=== PATIENT | female | born 1955 | race Caucasian/White ===

== ENCOUNTER 2016-09-19 18:57 | Observation (INO) ==
--- NOTE | 2016-09-19 19:05 | Emergency Department Note ---
Disposition Clinical Impression: Acute exacerbation of chronic obstructive airways disease Disposition: Admitted As Inpatient Condition: Fair Forms: ED Satisfaction Letter SOB HPI - General Chief Complaint: ED Shortness of Breath/Dyspnea Stated Complaint: DESHAWN Time Seen by Provider: 09/19/16 19:02 Source: patient Mode of arrival: ambulatory Limitations: no limitations Nursing Notes Reviewed: Yes Vital Signs Reviewed: Yes - History of Present Illness She is a 61-year-old female with history of moderate to severe COPD presents with increasing shortness of breath gradually over the past 3 weeks. Normally she only uses oxygen at night or when she is short of breath but not at home. The last 3 weeks she has had a use oxygen daily she had increasing wheezing and shortness of breath. Also last 3-4 days she has had increased nonproductive cough with some left-sided pleuritic chest pain. She has a [id number] smoking history she quit 3 years ago still uses a vapor cigarette. She also complains some intermittent diarrhea and her doctor gave her Bentyl for some abdominal pain and cramping. Pt Subjective Complaint: shortness of breath Improves with: oxygen, rest, bronchodilators Worsens with: exertion Known history of: COPD Associated symptoms: Reports: wheezing Treatment prior to arrival: oxygen, bronchodilator - Related Data Home Medications Medication Instructions Recorded Confirmed Aclidinium [place] [Tudorza 400 mcg IH BID 04/18/15 06/27/16 Pressair] Aspirin [Adult Low Dose Aspirin EC] 81 mg PO DAILY 04/18/15 06/27/16 Budesonide/Formoterol 160/4.5 2 puff IH BIDR 04/18/15 06/27/16 [Symbicort 160/4.5] Buspirone HCl [Buspar] 7.5 mg PO BID 04/18/15 06/27/16 Calcium Carbonate/Vitamin D3 2 tab PO DAILY 04/18/15 06/27/16 [Caltrate 600 + D Soft Chew Tab] Carvedilol [Coreg] 3.125 mg PO BIDWM 04/18/15 06/27/16 Escitalopram [Lexapro] 20 mg PO DAILY 04/18/15 06/27/16 Fluticasone Propionate Nasal 2 spray NS DAILY 04/18/15 03/26/16 [Flonase] LORazepam [Ativan] 1 mg PO HS PRN 04/18/15 06/27/16 Multivitamin [Multi-Day Vitamins] 1 tab PO DAILY 04/18/15 06/27/16 Rizatriptan Benzoate [Maxalt] 10 mg PO AD PRN 04/18/15 06/27/16 Roflumilast [Daliresp] 500 mcg PO DAILY 04/18/15 06/27/16 Simvastatin [Zocor] 20 mg PO DAILY 04/18/15 06/27/16 Calcium Polycarbophil [Fibercon] 625 mg PO QID 08/02/15 06/27/16 Pantoprazole Sodium [Protonix] 40 mg PO DAILY 08/02/15 06/27/16 Albuterol Sulfate [Ventolin Hfa] 18 gm IH Q4H 03/26/16 06/27/16 EPINEPHrine [Epipen] 0.3 mg IM ONCE PRN 03/26/16 06/27/16 Guaifenesin [Mucinex] 600 mg PO BID 03/26/16 06/27/16 HydrOXYzine SYP [Atarax] 25 mg PO TID 03/26/16 06/27/16 Insulin ASPART [Novolog Flexpen] 2 unit SQ DAILY 03/26/16 06/27/16 Insulin Glargine,Hum.rec.anlog 29 unit SQ DAILY 03/26/16 06/27/16 [Lantus Solostar] Ipratropium/Albuterol Neb [Duoneb] 3 ml IH Q6HR 03/26/16 06/27/16 Omeprazole [PriLOSEC] 20 mg PO DAILY 03/26/16 06/27/16 Ondansetron HCl [Zofran] 4 mg PO TID PRN 03/26/16 06/27/16 Oxygen 2 - 3 each NS CONT 03/26/16 06/27/16 Polyethylene Glycol 3350 [MiraLAX] 17 gm PO DAILY PRN 03/26/16 06/27/16 Potassium Chloride [Klor-Con] 20 meq PO DAILY 03/26/16 06/27/16 Simethicone [Gas-X] 80 mg PO TID 03/26/16 06/27/16 Nitroglycerin [Nitrostat] 0.4 mg SL Q5M PRN 06/27/16 06/27/16 Ranolazine [Ranexa] 500 mg PO BID 06/27/16 06/27/16 Allergies Allergy/AdvReac Type Severity Reaction Status Date / Time atorvastatin [From Lipitor] Allergy Swelling Verified 06/27/16 10:04 of Lip/Tongue/Throat bupropion [From Wellbutrin] Allergy Swelling Verified 06/27/16 10:04 of Lip/Tongue/Throat glimepiride Allergy Swelling Verified 06/27/16 10:04 of Lip/Tongue/Throat isosorbide [From Imdur] Allergy Swelling Verified 06/27/16 10:04 of Lip/Tongue/Throat lurasidone [From Latuda] Allergy Swelling Verified 06/27/16 10:04 of Lip/Tongue/Throat metformin Allergy Swelling Verified 06/27/16 10:04 of Lip/Tongue/Throat metoclopramide [From Reglan] Allergy Swelling Verified 06/27/16 10:04 of Lip/Tongue/Throat Penicillins Allergy Anaphylaxis Verified 06/27/16 10:04 prednisone Allergy Swelling Verified 09/19/16 19:00 of Lip/Tongue/Throat aspirin AdvReac Nausea Verified 06/27/16 10:04 clopidogrel [From Plavix] AdvReac Swelling Verified 06/27/16 10:04 of Lip/Tongue/Throat codeine AdvReac Nausea Verified 06/27/16 10:04 fluticasone AdvReac Swelling Verified 06/27/16 10:04 [From Advair Diskus] of Lip/Tongue/Throat Pertussis Vaccine,Adsorbed AdvReac Swelling Verified 06/27/16 10:04 of Lip/Tongue/Throat risperidone AdvReac Swelling Verified 06/27/16 10:04 of Lip/Tongue/Throat salmeterol AdvReac Swelling Verified 06/27/16 10:04 [From Advair Diskus] of Lip/Tongue/Throat tiotropium AdvReac Swelling Verified 06/27/16 10:04 [From Spiriva with of HandiHaler] Lip/Tongue/Throat venom-honey bee AdvReac Swelling Verified 06/27/16 10:04 [bee venom (honey bee)] of Lip/Tongue/Throat All systems ED: reviewed and negative except as stated. Constitutional: Denies: fever, chills Gastrointestinal: Reports: diarrhea. Denies: nausea, vomiting Past Medical History - Past Medical History Source: patient, old records reviewed, nursing notes reviewed Medical history: Reports: cardiomyopathy, COPD, coronary artery disease, diabetes, GERD, migraine, myocardial infarction, osteoporosis, thyroid disease, other Surgical history: Reports: appendectomy, cholecystectomy, hysterectomy, knee replacement, orthopedic, other Psychiatric history: Reports: anxiety, depression, PTSD - Social History Smoking Status: Former smoker Smokeless Tobacco Status: No Alcohol use: Reports: none Drug use: Reports: none Physical Exam - General Limitations: no limitations General appearance: alert, in no apparent distress - Head Head exam: atraumatic, normocephalic, normal inspection - Eye Eye exam: Present: normal appearance, PERRL, EOMI - Expanded Eye Exam Pupils: Left: reactive - ENT ENT exam: normal exam, normal oropharynx, mucous membranes moist - Expanded ENT Exam External ear exam: Present: normal external inspection Mouth exam: Present: normal external inspection Teeth exam: Present: normal inspection Throat exam: Present: normal inspection - Neck Neck exam: Present: normal inspection, full ROM, trachea midline - Chest Chest inspection: Present: normal inspection, symmetric chest wall rise - Respiratory Respiratory exam: Present: wheezes, prolonged expiratory phase. Absent: respiratory distress, accessory muscle use - Cardiovascular Cardiovascular exam: Present: tachycardia - Abdominal Exam Abdominal exam: Present: soft, Non-Tender. Absent: tenderness, distention, guarding, rebound, rigidity - Extremities Exam Extremities exam: Present: normal inspection, full ROM. Absent: tenderness, pedal edema - Expanded Upper Extremity Exam Shoulder exam: Present: normal inspection, full ROM Arm exam: Present: normal inspection, full ROM Elbow exam: Present: normal inspection, full ROM Forearm/Wrist exam: Present: normal inspection, full ROM Hand exam: Present: normal inspection, full ROM Vascular exam: Normal: capillary refill, radial pulse - Expanded Lower Extremity Exam Hip/Pelvis exam: Present: normal inspection, full ROM Upper leg exam: Present: normal inspection, full ROM Knee exam: Present: normal inspection, full ROM Lower leg exam: Present: normal inspection, full ROM Ankle exam: Present: normal inspection, full ROM Foot/toe exam: Present: normal inspection, full ROM Neurovascular/Tendon exam: Absent: motor deficit, sensory deficit, tendon deficit - Back Exam Back exam: Present: normal inspection, full ROM. Absent: tenderness - Neurological Exam Neurological exam: Present: alert, oriented X3 - Expanded Neurological Exam Patient oriented to: Present: person, place, time Coma Scale Eye Opening: Spontaneous Coma Scale Motor Response: Obeys Commands Coma Scale Verbal Response: Oriented Coma Scale Total: 15 - Psychiatric Psychiatric exam: Present: normal affect, normal mood - Skin Skin exam: Present: warm, dry, intact, normal color Course Vital Signs Temperature 98.4 F 09/19/16 19:00 Pulse Rate 115 09/19/16 19:00 Respiratory Rate 25 09/19/16 19:00 Blood Pressure 123/94 09/19/16 19:00 O2 Sat by Pulse Oximetry 95 09/19/16 19:00 Temperature 98.4 F 09/19/16 19:00 Pulse Rate 113 09/19/16 19:27 Respiratory Rate 18 09/19/16 20:38 Blood Pressure 109/99 09/19/16 19:27 O2 Sat by Pulse Oximetry 97 09/19/16 20:38 Oxygen Delivery Oxygen Delivery Nasal Cannula Shortness of Breath/Dyspnea - Differential Diagnosis Likely: acute exacerbation of chronic obstructive airways disease, congestive heart failure, pneumonia, asthma with exacerbation, pulmonary embolism, pneumothorax, arrhythmia - Medical Records Medical records reviewed: Yes I reviewed the patient's medical records. - Lab Data Lab results reviewed: Yes I reviewed the patient's lab results. Result diagrams: 09/19/16 19:14 09/19/16 19:14 Lab Results 09/19/16 09/19/16 09/19/16 Range/Units 19:14 19:14 19:14 WBC 9.3 (4.3-11.1) K/mcL RBC 4.79 (3.82-4.97) M/mcL Hgb 12.8 (11.5-15.4) g/dL Hct 40.1 (35.3-44.9) % MCV 83.7 (83.0-100.0) fL MCH 26.7 L (28.0-33.3) pg MCHC 31.9 (31.6-35.5) g/dL RDW 13.8 (11.5-14.5) % Plt Count 418 H (140-400) K/mcL MPV 9.7 (9.4-12.4) fL Immature Gran % 0.4 (0-4) % Seg Neutrophils % 59.3 % Lymphocytes % 27.7 % Monocytes % 8.2 % Eosinophils % 4.0 % Basophils % 0.4 % Neutrophils # 5.5 (1.6-8.9) K/mcL Lymphocytes # 2.6 (0.6-4.6) K/mcL Monocytes # 0.8 (0.0-1.3) K/mcL Eosinophils # 0.4 (0.0-0.6) K/mcL Basophils # 0.0 (0.0-0.2) K/mcL Immature Plt Fraction 2.8 (1.1-6.1) % Sodium 140 (136-145) mEq/L Potassium 4.3 (3.5-4.5) mEq/L Chloride 100 (98-109) mEq/L Carbon Dioxide 29 (19-29) mEq/L BUN 6 L (7-20) mg/dL Creatinine 0.97 (0.57-1.11) mg/dL Est GFR ( Amer) > 60 (> 60) Est GFR (Non-Af Amer) 58 L (> 60) BUN/Creatinine Ratio 6 (6-26) Glucose 199 H (70-99) mg/dL Calculated Osmolality 293 (280-300) Calcium 9.9 (8.6-10.8) mg/dL Troponin I 0.01 (0-0.03) ng/mL B-Natriuretic Peptide (0-100) pg/mL 09/19/16 Range/Units 19:14 WBC (4.3-11.1) K/mcL RBC (3.82-4.97) M/mcL Hgb (11.5-15.4) g/dL Hct (35.3-44.9) % MCV (83.0-100.0) fL MCH (28.0-33.3) pg MCHC (31.6-35.5) g/dL RDW (11.5-14.5) % Plt Count (140-400) K/mcL MPV (9.4-12.4) fL Immature Gran % (0-4) % Seg Neutrophils % % Lymphocytes % % Monocytes % % Eosinophils % % Basophils % % Neutrophils # (1.6-8.9) K/mcL Lymphocytes # (0.6-4.6) K/mcL Monocytes # (0.0-1.3) K/mcL Eosinophils # (0.0-0.6) K/mcL Basophils # (0.0-0.2) K/mcL Immature Plt Fraction (1.1-6.1) % Sodium (136-145) mEq/L Potassium (3.5-4.5) mEq/L Chloride (98-109) mEq/L Carbon Dioxide (19-29) mEq/L BUN (7-20) mg/dL Creatinine (0.57-1.11) mg/dL Est GFR ( Amer) (> 60) Est GFR (Non-Af Amer) (> 60) BUN/Creatinine Ratio (6-26) Glucose (70-99) mg/dL Calculated Osmolality (280-300) Calcium (8.6-10.8) mg/dL Troponin I (0-0.03) ng/mL B-Natriuretic Peptide 30 (0-100) pg/mL - Radiology Data Radiology results reviewed: Yes I reviewed the patient's radiology results. - EKG Data EKG attestation: Yes I reviewed and interpreted this EKG. EKG shows normal: Reports: sinus rhythm Rate: Reports: tachycardia (109) Rhythm: Reports: NSR [place]/QRS: Reports: normal Interpretation: Reports: no acute changes
[2016-09-19 19:24] LABS: Basophils % 0.4 %; Eosinophils # 0.4 K/mcL (0.0-0.6); Hematocrit 40.1 % (35.3-44.9); Hemoglobin 12.8 g/dL (11.5-15.4); Immature Granulocytes % 0.4 % (0-4); Immature Platelets 2.8 % (1.1-6.1); Lymphocytes # 2.6 K/mcL (0.6-4.6); Lymphocytes % 27.7 %; Mean Corpuscular HGB Conc 31.9 g/dL (31.6-35.5); Mean Corpuscular Hemoglobin 26.7 pg (28.0-33.3); Mean Corpuscular Volume 83.7 fL (83.0-100.0); Mean Platelet Volume 9.7 fL (9.4-12.4); Monocytes # 0.8 K/mcL (0.0-1.3); Monocytes % 8.2 %; Neutrophils # 5.5 K/mcL (1.6-8.9); Platelet Count 418 K/mcL (140-400); Red Blood Count 4.79 M/mcL (3.82-4.97); Red Cell Distribution Width 13.8 % (11.5-14.5); Segmented Neutrophils % 59.3 %
[2016-09-19] MEDS ORDERED: Ipratropium/Albuterol Neb 3 ML IH ONE (19:35)
[2016-09-19] MEDS ORDERED: methylPREDNISolone 125 MG/2 ML VIAL IVP ONE (19:35)
[2016-09-19 19:38] LABS: BUN/Creatinine Ratio 6 (6-26); Blood Urea Nitrogen 6 mg/dL (7-20); Calcium 9.9 mg/dL (8.6-10.8); Carbon Dioxide 29 mEq/L (19-29); Chloride 100 mEq/L (98-109); Glucose 199 mg/dL (70-99); Osmolality,Calculated 293 (280-300); Potassium 4.3 mEq/L (3.5-4.5); Sodium 140 mEq/L (136-145); eGFR For African Americans > 60 (> 60); eGFR For Non-African Americans 58 (> 60)
[2016-09-19] MEDS ORDERED: Levofloxacin 750 MG/150 ML 750 MG/150 ML BAG IVPB ONE (20:46)
--- NOTE | 2016-09-19 23:07 | Internal Med History&Physical ---
<Cayla Durbin - Last Filed: 09/20/16 01:26> Date of Encounter: 09/20/16 Time of Encounter: 00:07 Assessment and Plan (1) Acute exacerbation of chronic obstructive airways disease Current visit: Yes Status: Acute duonebs IV solumedrol supplemental O2 to keep SaO2 >/=96% continue home inhalers (2) Diabetes Current visit: No Status: Chronic SQ insulin with low dose sliding scale diabetic cardiac diet glucerna BID - requested by patient Patient has stated that she will be having food brought in if she is not placed on a "regular diet" stating that she does not eat a diabetic diet at home, she eats cookies and ice cream and gottlieb and eggs. She states that she counts carbs athome for her diet and is upset that during her last admission she was not allowed to have sugar for her coffee or gottlieb at breakfast. 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 transplanted heart: [place] heart Associated angina: with unspecified angina Qualified Code(s): I25.119 - Atherosclerotic heart disease of [place] coronary artery with unspecified angina pectoris Internal Medicine - H&P: HPI Chief complaint: shortness of breath Admitted From: Emergency Dept Plans for Post Hospital Care: Home History of present illness: Ms. Gomez is a 61 year old female past medical history of diabets, CAD, COPD, who comes in complaining with shortness of breath 3 weeks and nonproductive cough 3 days. At her baseline she does not use oxygen at home, but uses it at rest and when she is ill. She states that she has been using it for the past 3 weeks with increased difficulty in breathing and shortness of breath and also increased oxygen demand. In the past 3 days she has had a dry hacking cough that has caused chest wall and rib pain. She also notes increase in loose stools with flatus and belching. She is adamant that she wants a regular diet and she does not eat a diabetic diet at home - that she counts carbs. She states that last time she was admitted she was unable to use sugar in her coffee or have gottlieb with breakfast. She states that if she is not placed on a regular diet she will have food brought in to her room. Past Med Surg Social Fam HX - Past Medical History Medical history: cardiomyopathy ([place]), COPD, coronary artery disease, diabetes, GERD, migraine, myocardial infarction, osteoporosis, renal disease, thyroid disease (hyperthyroidism), other (overactive bladder) Psychiatric history: anxiety, bipolar, depression, panic disorder, PTSD - Past Surgical History Surgical History: appendectomy, cataract, cholecystectomy, knee replacement ( right), orthopedic, other (right carpal tunnel), ANTON/BSO - Social History Smoking Status: Former smoker Smokeless Tobacco Status: No Alcohol use: none Drug use: none - Family History Father Adopted: No Family Member Ethnicity: Non- Living Status: Hx Family Cardiac Disorders: Yes (CAD,HTN) Hx Family Respiratory Disorders: No Hx Family Cancer: No Hx Family GI Disorders: Yes Hx Family Endocrine Disorder: Yes (DM) Hx Family Neuromuscular Disorders: No Hx Family Neurologic Disorders: No Hx Family HEENT Disorders: No Hx Family Autoimmune Disorders: No Internal Medicine - H&P: Meds Aclidinium [place] [Tudorza Pressair] 400 mcg IH BID 04/18/15 [History] Aspirin [Adult Low Dose Aspirin EC] 81 mg PO DAILY 04/18/15 [History] Budesonide/Formoterol 160/4.5 [Symbicort 160/4.5] 2 puff IH BIDR 04/18/15 [ History] Buspirone HCl [Buspar] 7.5 mg PO BID 04/18/15 [History] Carvedilol [Coreg] 3.125 mg PO BIDWM 04/18/15 [History] Roflumilast [Daliresp] 500 mcg PO DAILY 04/18/15 [History] Simvastatin [Zocor] 20 mg PO DAILY 04/18/15 [History] Calcium Polycarbophil [Fibercon] 625 mg PO QID PRN 08/02/15 [History] Pantoprazole Sodium [Protonix] 40 mg PO DAILY 08/02/15 [History] Albuterol Sulfate [Ventolin Hfa] 18 gm IH Q4H PRN 03/26/16 [History] Insulin ASPART [Novolog Flexpen] 2 - 10 unit SQ TID 03/26/16 [History] Insulin Glargine,Hum.rec.anlog [Lantus Solostar] 29 unit SQ HS 03/26/16 [History ] Ipratropium/Albuterol Neb [Duoneb] 3 ml IH Q4-6H PRN 03/26/16 [History] Ondansetron HCl [Zofran] 4 mg PO TID PRN 03/26/16 [History] Oxygen 2 - 3 each NS CONT 03/26/16 [History] Potassium Chloride [Klor-Con] 20 meq PO DAILY 03/26/16 [History] Nitroglycerin [Nitrostat] 0.4 mg SL Q5M PRN 06/27/16 [History] Ranolazine [Ranexa] 500 mg PO BID 06/27/16 [History] Benzonatate [Tessalon] 100 mg PO TID PRN 09/19/16 [History] Dicyclomine [Bentyl] 20 mg PO QID 09/19/16 [History] Glucerna 09/19/16 [History] Rizatriptan Benzoate [Maxalt] 10 mg PO ONCE PRN 09/19/16 [History] Simethicone [Gas-X] 80 mg PO QID PRN 09/19/16 [History] Allergies atorvastatin [From Lipitor] Allergy (Verified 06/27/16 10:04) Swelling of Lip/Tongue/Throat bupropion [From Wellbutrin] Allergy (Verified 06/27/16 10:04) Swelling of Lip/Tongue/Throat glimepiride Allergy (Verified 06/27/16 10:04) Swelling of Lip/Tongue/Throat isosorbide [From Imdur] Allergy (Verified 06/27/16 10:04) Swelling of Lip/Tongue/Throat lurasidone [From Latuda] Allergy (Verified 06/27/16 10:04) Swelling of Lip/Tongue/Throat metformin Allergy (Verified 06/27/16 10:04) Swelling of Lip/Tongue/Throat metoclopramide [From Reglan] Allergy (Verified 06/27/16 10:04) Swelling of Lip/Tongue/Throat Penicillins Allergy (Verified 06/27/16 10:04) Anaphylaxis prednisone Allergy (Verified 09/19/16 19:00) Swelling of Lip/Tongue/Throat aspirin Adverse Reaction (Verified 09/19/16 23:23) Nausea GI upset with 325 mg strength; able to tolerate 81 mg strength clopidogrel [From Plavix] Adverse Reaction (Verified 06/27/16 10:04) Swelling of Lip/Tongue/Throat codeine Adverse Reaction (Verified 06/27/16 10:04) Nausea fluticasone [From Advair Diskus] Adverse Reaction (Verified 06/27/16 10:04) Swelling of Lip/Tongue/Throat Pertussis Vaccine,Adsorbed Adverse Reaction (Verified 06/27/16 10:04) Swelling of Lip/Tongue/Throat risperidone Adverse Reaction (Verified 06/27/16 10:04) Swelling of Lip/Tongue/Throat salmeterol [From Advair Diskus] Adverse Reaction (Verified 06/27/16 10:04) Swelling of Lip/Tongue/Throat tiotropium [From Spiriva with HandiHaler] Adverse Reaction (Verified 06/27/16 10 :04) Swelling of Lip/Tongue/Throat venom-honey bee [bee venom (honey bee)] Adverse Reaction (Verified 06/27/16 10: 04) Swelling of Lip/Tongue/Throat All Systems PM: A 10-system review of systems was performed and is negative for pertinent findings except as documented above in the HPI. - Constitutional Constitutional: no chills, no fever(s), no night sweats - EENT Eyes: no change in vision, no discharge, no pain, no photophobia Ears: no ear discharge, no ear pain, no tinnitus Nose, mouth and throat: no dysphagia, no nasal discharge, no neck pain, no sore throat - Cardiovascular Cardiovascular ROS IM: chest pain, dyspnea, dyspnea on exertion, no diaphoresis , no lightheadedness, no palpitations, no syncope - Respiratory Respiratory: cough, dyspnea, dyspnea on exertion, wheezing, pain with cough, no excessive phlegm production - Gastrointestinal Gastrointestinal: belching, change in stool character, excessive flatus, loose stools, no abdominal pain, no diarrhea, no hematemesis, no hematochezia, no melena, no nausea, no vomiting - Genitourinary Genitourinary: no change in urinary stream, no difficulty urinating, no dysuria , no flank pain, no hematuria, no urinary frequency, no urinary urgency - Musculoskeletal Musculoskeletal ROS IM: muscle cramps (calf), no numbness, no tingling - Integumentary Integumentary IM: no rash, no unusual bruising - Neurological Neurological ROS: no confusion, no convulsions, no focal weakness, no numbness, no tingling, no tremor(s) - Hematologic/Lymphatic Hematologic/Lymphatic: no easy bruising - Constitutional Vitals: Temp Pulse Resp BP Pulse Ox 98.0 F 109 32 143/78 95 09/19/16 22:14 09/19/16 22:14 09/19/16 22:14 09/19/16 22:14 09/19/16 22:14 General appearance: Present: A&O X 3, no acute distress - Head Head exam: Present: atraumatic, normocephalic - Eye Eye exam: Present: PERRL, conjuntiva pink, sclera anicteric Pupils: Present: PERRL - Neck Neck exam general surgery: Present: supple, trachea midline. Absent: lymphadenopathy - Respiratory Respiratory exam: Present: chest wall tenderness, decreased breath sounds, prolonged expiratory phase, wheezes. Absent: accessory muscle use, rales, rhonchi - Cardiovascular Cardiovascular exam: Present: RRR, +S1, +S2. Absent: diastolic murmur, gallop, rubs, systolic murmur - GI/Abdominal GI/Abdominal exam: Present: normal bowel sounds, soft, no peritoneal signs. Absent: distended, tenderness - Extremities Exam Extremities exam: Present: warm, radial pulses palpable and symetrical. Absent : calf tenderness, cyanotic, pedal edema - Neurological Exam Neurological exam: Present: CN II-XII intact, oriented X3, no focal deficits. Absent: pronater drift, facial droop, speech deficit - Skin Skin exam: Present: dry, intact Internal Med - H&P Results - Labs CBC & Chem 7: 09/19/16 19:14 09/19/16 19:14 <Nik Jhaveri - Last Filed: 09/20/16 02:47> Date of Encounter: 09/20/16 All Systems PM: A 10-system review of systems was performed and is negative for pertinent findings except as documented above in the HPI. - Constitutional Vitals: Temp Pulse Resp BP Pulse Ox 98.0 F 109 32 143/78 95 09/19/16 22:14 09/19/16 22:14 09/19/16 22:14 09/19/16 22:14 09/19/16 22:14 General appearance: Present: A&O X 3, no acute distress - Head Head exam: Present: atraumatic, normal inspection - ENT ENT exam: Present: mucous membranes dry, normal oropharynx - Neck Neck exam general surgery: Present: supple - Respiratory Respiratory exam: Present: chest wall tenderness, decreased breath sounds, prolonged expiratory phase, wheezes. Absent: rales, respiratory distress, rhonchi - Cardiovascular Cardiovascular exam: Present: RRR, +S1, +S2 - GI/Abdominal GI/Abdominal exam: Present: soft. Absent: tenderness - Extremities Exam Extremities exam: Present: full ROM, warm - Back Exam Back exam: Present: normal inspection. Absent: CVA tenderness (L), CVA tenderness (R) - Neurological Exam Neurological exam: Present: alert, oriented X3, no focal deficits Internal Med - H&P Results - Labs CBC & Chem 7: 09/19/16 19:14 09/19/16 19:14 - EKG Data -: EKG Interpreted by Myself EKG shows normal: sinus rhythm Rate: tachycardia - EKG Data Prior EKG available for review: no EKG comments: 09/20/16 02:41 sinus tachycardia with no acute changes - Diagnostic Studies Chest x-ray Status: image reviewed by me (negative -- no infiltrates) - Attending Attestation I discussed the pt DIOMEDE, PMH, ROS, lab data, and exam findings with Dr. Durbin. I then saw and examined patient independently as well. Pt is resting in bed comfortably and feels better than initial presentation. She denies any fevers, shakes, chills, but she has had some body aches, fatigue, and occasional headache. We will check for influenza and treat if necessary. I agree with COPD treatments. I'm not convinced she needs antibiotics. She did receive a dose of antibiotics in ER. Will treat as detailed by Dr. Durbin and monitor closely. Other than my comments and noted exam findings , I agree with Dr. Durbin.
[2016-09-19] MEDS ORDERED: Acetaminophen 325 MG TABLET PO PRN (23:55)
[2016-09-19] MEDS ORDERED: Naloxone 0.4 MG/ML INJ IVP PRN (23:55)
[2016-09-19] MEDS ORDERED: Dextrose Gel 15 GM PO PRN ×2 (23:58)
[2016-09-19] MEDS ORDERED: D5% in Water 1,000 ML IV PRN (23:58)
[2016-09-19] MEDS ORDERED: *HR* Dextrose 50 % in Water (Syg) 50 ML SYRINGE IVP PRN (23:58)
[2016-09-20] MEDS ORDERED: MAXALT 10 MG PO PRN (00:01)
[2016-09-20] MEDS ORDERED: Nitroglycerin 0.4 MG TAB.SUBL SL PRN (00:01)
[2016-09-20] MEDS ORDERED: Ipratropium/Albuterol Neb 3 ML IH PRN (00:18)
[2016-09-20] MEDS: Insulin LISPRO 300 UNITS/3 ML VIAL SQ SCH ×9 (00:28→23:36)
[2016-09-20] MEDS: Ipratropium/Albuterol Neb 3 ML IH SCH ×6 (00:34→20:34)
[2016-09-20 03:02] LABS: 2009 H1N1 PCR NOT DETECTED (Not Detect); Influenza A PCR Negative (Negative); Influenza B PCR Negative (Negative)
[2016-09-20] MEDS: Insulin DETEMIR 100 UNIT/ML X5UNITS SQ SCH ×2 (03:43→21:25)
[2016-09-20] MEDS: methylPREDNISolone 125 MG/2 ML VIAL IVP SCH ×2 (06:05→16:57)
[2016-09-20] MEDS: *HR* Heparin 5,000 UNIT/ML VIAL SQ SCH ×2 (06:05→20:43)
[2016-09-20] MEDS: Ranolazine 500 MG TAB.ER.12H PO SCH ×2 (09:49→20:43)
[2016-09-20] MEDS: Aspirin Enteric Coated 81 MG Tablet PO SCH (09:49)
[2016-09-20] MEDS: DALIRESP 500 MCG PO SCH (09:54)
[2016-09-20] MEDS: Tudorza Pressair 400 MCG IH SCH ×2 (09:55→20:43)
--- NOTE | 2016-09-20 10:09 | Internal Med Progress Note ---
Date of Encounter: 09/20/16 Time of Encounter: 09:00 - Assessment and plan (1) Acute exacerbation of chronic obstructive airways disease Current Visit: Yes Status: Acute Assessment and plan: We will continue pulmonary toilet. On examination, patient with poor aeration and diffuse expiratory wheezing noted throughout. She has mild increased work of breathing and has to stop and positive for extra breaths while speaking. Of note, patient demanded to take her home medicine and after policy was explained to her, she is okay with taking [facility]'s medications. Chest x-ray unremarkable. Flu swab negative. ITS Impressions Chest X-Ray 09/19/16 19:05 IMPRESSION: No acute disease D/ / Tobias Rodgers MD / Tobias Rodgres MD Interpreting Provider: Tobias Rodgers MD (2) Chest pain Current Visit: Yes Status: Acute Assessment and plan: Costochondral in nature. Patient with point tenderness to left axillary chest that is worsened with movement and coughing. We will continue pain control and add incentive spirometry. (3) CKD (chronic kidney disease) stage 3, GFR 30-59 ml/min Current Visit: Yes Status: Chronic Assessment and plan: Stable and consistent with her baseline. We will continue to trend. (4) CAD (coronary artery disease) Current Visit: Yes Status: Chronic (5) Chronic respiratory failure Current Visit: No Status: Chronic Assessment and plan: Patient is stating she was on 3-1/2 L per nasal cannula as needed at home but over the past several weeks, patient has been using it continuously. She is currently on 3.5 L (6) Diabetes Current Visit: No Status: Chronic Assessment and plan: Relatively well-controlled home with an A1c of 7.2%. Of note, patient stating that she eats a regular diet at home but performs carbohydrate counting. We will allow for a regular diet as her diabetes appears controlled. Qualifiers: Diabetes mellitus type: type 2 Diabetes mellitus complication status: with hyperglycemia Diabetes mellitus retirement insulin use: with retirement use Qualified Code(s): E11.65 - Type 2 diabetes mellitus with hyperglycemia; Z79.4 - residential (current) use of insulin (7) Smoking Current Visit: No Status: Chronic Assessment and plan: Patient has stopped smoking cigarettes however she uses vapor ecigs daily. She was counseled to stop ecigs as well as their safety has not been proven, but she declined counseling. - Subjective Interval history: Patient seen and examined. On examination, patient sitting upright in bed conversing with a friend. She states she is feeling better than when she came in but still is more short of breath than usual. Patient complaining of severe pain to her left side with coughing. She states she no longer smokes but does "vape" daily. She is requesting to take her own medications from home. She is requesting a regular diet. - Constitutional Vitals: Temp Pulse Resp BP Pulse Ox 97.8 F 100 20 129/74 95 09/20/16 04:57 09/20/16 04:57 09/20/16 04:57 09/20/16 04:57 09/20/16 04:57 General appearance: Present: mild distress, A&O X 3, pleasant, answers questions appropriately - Head Head exam: Present: atraumatic, normocephalic - Eye Eye exam: Present: PERRL, conjuntiva pink, sclera anicteric Pupils: Present: PERRL - Neck Neck exam general surgery: Present: supple, trachea midline. Absent: lymphadenopathy - Respiratory Respiratory exam: Present: accessory muscle use, decreased breath sounds, prolonged expiratory phase, respiratory distress (mild), wheezes. Absent: rales , rhonchi - Cardiovascular Cardiovascular exam: Present: RRR, +S1, +S2. Absent: diastolic murmur, gallop, rubs, systolic murmur - GI/Abdominal GI/Abdominal exam: Present: normal bowel sounds, soft, no peritoneal signs. Absent: distended, tenderness - Extremities Exam Extremities exam: Present: warm, radial pulses palpable and symetrical. Absent : calf tenderness, cyanotic, pedal edema - Neurological Exam Neurological exam: Present: alert, CN II-XII intact, oriented X3, no focal deficits, strengths equal and symetr throughout. Absent: pronater drift, facial droop, speech deficit - Skin Skin exam: Present: diaphoretic, intact, pallor, warm Internal Medicine: Result - Labs CBC & Chem 7: 09/19/16 19:14 09/19/16 19:14 Labs: Cardiac Enzymes 09/20/16 Range/Units 03:16 Troponin I 0.00 (0-0.03) ng/mL Consult Discharge Plan - Plan Referrals: Lisa Brown, NELDA [Primary Care Provider] -
[2016-09-20] MEDS: Budesonide/Formoterol 160/4.5 MDI IH SCH ×2 (10:27→20:35)
[2016-09-20] MEDS ORDERED: *HR* HYDROcodone/Acet 5/325 mg TABLET PO PRN (10:27)
[2016-09-20] MEDS ORDERED: Benzonatate 100 MG CAPSULE PO PRN (10:28)
[2016-09-20] MEDS: Simethicone 80 MG TAB.CHEW PO PRN ×2 (14:47→20:43)
[2016-09-20] MEDS: *HR* OxyCODONE Immed Rel 5 MG TABLET PO PRN (14:47)
--- NOTE | 2016-09-20 17:14 | Electrocardiograph Report ---
[place] [address] Test Date: 2016-09-19 Pat Name: Margie Gomez Department: 104 Room: 3B38 Gender: F Mixer Attendant: : 1955 Requested By: Archie Randall Order Number: [id number] Reading MD: Susan Gallo Measurements Intervals [place] Rate: 109 P: 58 MN: 125 QRS: 43 QRSD: 72 T: 54 QT: 300 QTc: 364 Interpretive Statements SINUS TACHYCARDIA ABNORMAL RHYTHM ECG Electronically Signed On 09-20-2016 17:12:23 EST by Susan Gallo
[2016-09-20] MEDS ORDERED: Insulin DETEMIR 100 UNIT/ML X5UNITS SQ SCH ×2 (21:15→22:00)
[2016-09-20] MEDS ORDERED: Insulin DETEMIR 100 UNIT/ML X5UNITS SQ ONE (21:28)
[2016-09-21] MEDS: Ipratropium/Albuterol Neb 3 ML IH SCH ×5 (00:16→15:53)
[2016-09-21] MEDS: Ondansetron ODT 4 MG TAB.RAPDIS SL PRN ×2 (03:45→10:19)
[2016-09-21 05:02] LABS: Calcium 9.6 mg/dL (8.6-10.8); Potassium 4.5 mEq/L (3.5-4.5)
[2016-09-21] MEDS: Insulin LISPRO 300 UNITS/3 ML VIAL SQ SCH ×2 (05:45→11:52)
[2016-09-21] MEDS: methylPREDNISolone 125 MG/2 ML VIAL IVP SCH (05:46)
[2016-09-21] MEDS: Budesonide/Formoterol 160/4.5 MDI IH SCH ×2 (07:51→10:22)
[2016-09-21] MEDS: Simethicone 80 MG TAB.CHEW PO PRN ×3 (09:29→17:10)
[2016-09-21] MEDS: Ranolazine 500 MG TAB.ER.12H PO SCH (09:29)
[2016-09-21] MEDS: Aspirin Enteric Coated 81 MG Tablet PO SCH (09:32)
[2016-09-21] MEDS: Tudorza Pressair 400 MCG IH SCH (09:33)
[2016-09-21] MEDS: DALIRESP 500 MCG PO SCH (09:34)
[2016-09-21] MEDS: *HR* Heparin 5,000 UNIT/ML VIAL SQ SCH ×2 (10:19→17:13)
[2016-09-21] MEDS: *HR* OxyCODONE Immed Rel 5 MG TABLET PO PRN ×2 (11:51→17:10)
[2016-09-21] MEDS ORDERED: Patient Taking Own Medication 1 EACH PO SCH (13:00)
[2016-09-21 16:35] VITALS: BP 110/67
[2016-09-21] MEDS ORDERED: *HR* LORazepam 0.5 MG TABLET PO PRN (16:42)
--- NOTE | 2016-09-21 16:49 | Internal Med Progress Note ---
Date of Encounter: 09/21/16 Time of Encounter: 16:45 - Assessment and plan (1) Acute exacerbation of chronic obstructive airways disease Current Visit: Yes Status: Acute Assessment and plan: We will continue pulmonary toilet. On examination, patient has no wheezing today. however has decreased breath sounds. Chest x-ray unremarkable. Flu swab negative. She is allergic to prednisone, we will taper the IV methylprednisone to 60 every 12 today. ITS Impressions Chest X-Ray 09/19/16 19:05 IMPRESSION: No acute disease D/ / Tobias Rodgers MD / Tobias Rodgers MD Interpreting Provider: Tobias Rodgers MD (2) CAD (coronary artery disease) Current Visit: Yes Status: Chronic Assessment and plan: denies chest pain, continue home meds Qualifiers: Coronary Disease-Associated Artery/Lesion type: [place] artery [place] vs. transplanted heart: [place] heart Associated angina: with unspecified angina Qualified Code(s): I25.119 - Atherosclerotic heart disease of [place] coronary artery with unspecified angina pectoris (3) CKD (chronic kidney disease) stage 3, GFR 30-59 ml/min Current Visit: Yes Status: Chronic Assessment and plan: Stable and consistent with her baseline. We will continue to trend. (4) Diabetes Current Visit: No Status: Chronic Assessment and plan: Relatively well-controlled home with an A1c of 7.2%. Of note, patient stating that she eats a regular diet at home but performs carbohydrate counting. We will allow for a regular diet as her diabetes appears controlled. 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 however, noted that she was speaking in full sentences and does not seem to be in much respiratory distress. no fever or leucocytosis. her meds has been adjusted the way she is taking at home, will add prn ativan for anxiety. - Constitutional Vitals: Temp Pulse Resp BP Pulse Ox 97.5 F L 113 16 110/67 96 09/21/16 16:31 09/21/16 16:31 09/21/16 16:31 09/21/16 16:31 09/21/16 16:31 General appearance: Present: mild distress, A&O X 3, pleasant, answers questions appropriately Exam: - Head Head exam: Present: atraumatic, normocephalic - Eye Eye exam: Present: PERRL, conjuntiva pink, sclera anicteric Pupils: Present: PERRL - Neck Neck exam general surgery: Present: supple, trachea midline. Absent: lymphadenopathy - Respiratory Respiratory exam: Present: decreased breath sounds, prolonged expiratory phase, no wheezing. Absent: rales, rhonchi - Cardiovascular Cardiovascular exam: Present: RRR, +S1, +S2. Absent: diastolic murmur, gallop, rubs, systolic murmur - GI/Abdominal GI/Abdominal exam: Present: normal bowel sounds, soft, no peritoneal signs. Absent: distended, tenderness - Extremities Exam Extremities exam: Present: warm, radial pulses palpable and symetrical. Absent : calf tenderness, cyanotic, pedal edema - Neurological Exam Neurological exam: Present: alert, CN II-XII intact, oriented X3, no focal deficits, strengths equal and symetr throughout. Absent: pronater drift, facial droop, speech deficit - Skin Skin exam: Present: diaphoretic, intact, pallor, warm Internal Medicine: Result - Labs CBC & Chem 7: 09/19/16 19:14 09/21/16 03:54 Labs: BMP 09/21/16 03:54 Sodium 131 L D Potassium 4.5 Chloride 97 L Carbon Dioxide 20 BUN 14 Creatinine 1.19 H Glucose 425 H Calcium 9.6 Consult Discharge Plan - Plan Referrals: Lisa Brown CNP [Primary Care Provider] - 09/27/16 1:30 pm
[2016-09-21] MEDS ORDERED: methylPREDNISolone 125 MG/2 ML VIAL IVP SCH (18:00)
[2016-09-22] MEDS ORDERED: predniSONE 20 MG TABLET PO SCH (09:00)
--- NOTE | 2016-09-22 18:28 | Discharge Summary ---
Date of Encounter: 09/21/16 Time of Encounter: 18:24 - Discharge Diagnosis (1) Acute exacerbation of chronic obstructive airways disease Priority: Primary Status: Acute (2) CAD (coronary artery disease) Priority: Secondary Status: Chronic Qualifiers: Coronary Disease-Associated Artery/Lesion type: [place] artery [place] vs. transplanted heart: [place] heart Associated angina: with unspecified angina Qualified Code(s): I25.119 - Atherosclerotic heart disease of [place] coronary artery with unspecified angina pectoris (3) CKD (chronic kidney disease) stage 3, GFR 30-59 ml/min Priority: Secondary Status: Chronic (4) Diabetes Priority: Secondary Status: Chronic Qualifiers: Diabetes mellitus type: type 2 Diabetes mellitus complication status: with hyperglycemia Diabetes mellitus care home insulin use: with care home use Qualified Code(s): E11.65 - Type 2 diabetes mellitus with hyperglycemia; Z79.4 - intermediate accountant (current) use of insulin - Discharge Medications Home Medications: Aclidinium [place] [Tudorza Pressair] 400 mcg IH BID 04/18/15 [History] Aspirin [Adult Low Dose Aspirin EC] 81 mg PO DAILY 04/18/15 [History] Budesonide/Formoterol 160/4.5 [Symbicort 160/4.5] 2 puff IH BIDR 04/18/15 [ History] Buspirone HCl [Buspar] 15 mg PO HS 04/18/15 [History] Carvedilol [Coreg] 3.125 mg PO BIDWM 04/18/15 [History] Roflumilast [Daliresp] 500 mcg PO DAILY 04/18/15 [History] Simvastatin [Zocor] 20 mg PO DAILY 04/18/15 [History] Calcium Polycarbophil [Fibercon] 625 mg PO QID PRN 08/02/15 [History] Pantoprazole Sodium [Protonix] 40 mg PO DAILY 08/02/15 [History] Albuterol Sulfate [Ventolin Hfa] 18 gm IH Q4H PRN 03/26/16 [History] Insulin ASPART [Novolog Flexpen] 2 - 10 unit SQ TID 03/26/16 [History] Insulin Glargine,Hum.rec.anlog [Lantus Solostar] 29 unit SQ HS 03/26/16 [History ] Ipratropium/Albuterol Neb [Duoneb] 3 ml IH Q4-6H PRN 03/26/16 [History] Ondansetron HCl [Zofran] 4 mg PO TID PRN 03/26/16 [History] Oxygen 2 - 3 each NS CONT 03/26/16 [History] Potassium Chloride [Klor-Con] 20 meq PO DAILY 03/26/16 [History] Nitroglycerin [Nitrostat] 0.4 mg SL Q5M PRN 06/27/16 [History] Ranolazine [Ranexa] 500 mg PO BID 06/27/16 [History] Benzonatate [Tessalon] 100 mg PO TID PRN 09/19/16 [History] Dicyclomine [Bentyl] 20 mg PO QID 09/19/16 [History] Glucerna 09/19/16 [History] Rizatriptan Benzoate [Maxalt] 10 mg PO ONCE PRN 09/19/16 [History] Simethicone [Gas-X] 80 mg PO QID 09/19/16 [History] Zolpidem [Ambien] 5 mg PO HS 09/20/16 [History] Allergies/Adverse Reactions: Allergies atorvastatin [From Lipitor] Allergy (Verified 06/27/16 10:04) Swelling of Lip/Tongue/Throat bupropion [From Wellbutrin] Allergy (Verified 06/27/16 10:04) Swelling of Lip/Tongue/Throat glimepiride Allergy (Verified 06/27/16 10:04) Swelling of Lip/Tongue/Throat isosorbide [From Imdur] Allergy (Verified 06/27/16 10:04) Swelling of Lip/Tongue/Throat lurasidone [From Latuda] Allergy (Verified 06/27/16 10:04) Swelling of Lip/Tongue/Throat metformin Allergy (Verified 06/27/16 10:04) Swelling of Lip/Tongue/Throat metoclopramide [From Reglan] Allergy (Verified 06/27/16 10:04) Swelling of Lip/Tongue/Throat Penicillins Allergy (Verified 06/27/16 10:04) Anaphylaxis prednisone Allergy (Verified 09/19/16 19:00) Swelling of Lip/Tongue/Throat acetaminophen [From [place]] Adverse Reaction (Verified 09/20/16 11:17) Swelling of Lip/Tongue/Throat aspirin Adverse Reaction (Verified 09/19/16 23:23) Nausea GI upset with 325 mg strength; able to tolerate 81 mg strength clopidogrel [From Plavix] Adverse Reaction (Verified 06/27/16 10:04) Swelling of Lip/Tongue/Throat codeine Adverse Reaction (Verified 06/27/16 10:04) Nausea fluticasone [From Advair Diskus] Adverse Reaction (Verified 06/27/16 10:04) Swelling of Lip/Tongue/Throat hydrocodone [From [place]] Adverse Reaction (Verified 09/20/16 11:17) Swelling of Lip/Tongue/Throat Pertussis Vaccine,Adsorbed Adverse Reaction (Verified 06/27/16 10:04) Swelling of Lip/Tongue/Throat risperidone Adverse Reaction (Verified 06/27/16 10:04) Swelling of Lip/Tongue/Throat salmeterol [From Advair Diskus] Adverse Reaction (Verified 06/27/16 10:04) Swelling of Lip/Tongue/Throat tiotropium [From Spiriva with HandiHaler] Adverse Reaction (Verified 06/27/16 10 :04) Swelling of Lip/Tongue/Throat venom-honey bee [bee venom (honey bee)] Adverse Reaction (Verified 06/27/16 10: 04) Swelling of Lip/Tongue/Throat Date of admission: 09/19/16 21:29 Primary care physician: Lisa Brown, Consults: 09/19/16 22:46 Consult to Church Supervisor [CONS] Routine Reason for SW Consult: resume services Discharging clinician: Lang Manning Anticipated date of discharge: 09/22/16 - Patient Status Disposition: Home, Self-Care Condition: Fair - Discharge Instructions Follow Up With: Lisa Brown, RIBBON WINDER [Primary Care Provider] - 09/27/16 1:30 pm Interval History: jair was admitted for acute exacerbation of COPD. she was started on IV steroids and breathing tx. 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 she is still on 60 IV q12 of methylpred and she is allergic to prednisone as this time, it was expalined that it might beunsafe to discharge her off steroids , that was when she signed out AMA. Hospital course: Ms. Gomez is a 61 year old female - Time Spent with Patient Total time spent providing and/or coordinating discharge services: - Constitutional Vitals: Temp Pulse Resp BP Pulse Ox 97.5 F L 113 16 110/67 96 09/21/16 16:31 09/21/16 16:31 09/21/16 16:31 09/21/16 16:31 09/21/16 16:31 General appearance: Present: A&O X 3, pleasant, answers questions appropriately Exam: exam was not done at the time of dc as jair signed out AMA
== END 2016-09-21 18:40 | disposition home or self-care (01) ==
LOC: EMEROO 18:57 → 3BNU 18:57
PROVIDERS: ADMIT Pediatrics; ATTEND Nurse Practitioner Family

== ENCOUNTER 2017-04-27 21:21 | Inpatient (IN) ==
[2017-04-27] MEDS ORDERED: Ipratropium/Albuterol Neb 3 ML IH ONE ×2 (21:32→22:08)
[2017-04-27] MEDS ORDERED: methylPREDNISolone 125 MG/2 ML VIAL IVP ONE (22:04)
[2017-04-27] MEDS ORDERED: Aspirin 325 MG TABLET PO ONE (22:09)
[2017-04-27] MEDS ORDERED: Levofloxacin 750 MG/150 ML 750 MG/150 ML BAG IVPB ONE (22:09)
[2017-04-27 22:11] LABS: Basophils # 0.1 K/mcL (0.0-0.2); Basophils % 0.6 %; Eosinophils # 0.3 K/mcL (0.0-0.6); Hematocrit 41.7 % (35.3-44.9); Hemoglobin 13.3 g/dL (11.5-15.4); Immature Granulocytes % 1.3 % (0-4); Lymphocytes # 3.2 K/mcL (0.6-4.6); Lymphocytes % 24.8 %; Mean Corpuscular HGB Conc 31.9 g/dL (31.6-35.5); Mean Corpuscular Hemoglobin 28.2 pg (28.0-33.3); Mean Corpuscular Volume 88.3 fL (83.0-100.0); Mean Platelet Volume 9.9 fL (9.4-12.4); Monocytes # 0.9 K/mcL (0.0-1.3); Monocytes % 6.9 %; Neutrophils # 8.3 K/mcL (1.6-8.9); Platelet Count 345 K/mcL (140-400); Red Blood Count 4.72 M/mcL (3.82-4.97); Red Cell Distribution Width 13.7 % (11.5-14.5); Segmented Neutrophils % 64.4 %
[2017-04-27 22:12] LABS: VBG PH 7.42 pH Units (7.32-7.42)
[2017-04-27 22:15] LABS: Prothrombin Time 10.6 Seconds (9.4-12.1)
[2017-04-27 22:18] LABS: Activated Partial Thrombo Time 24.3 Seconds (26.0-36.0)
--- NOTE | 2017-04-27 22:19 | Emergency Department Note ---
Disposition Clinical Impression: Community acquired pneumonia, Acute exacerbation of chronic obstructive airways disease Disposition: Still a Patient Condition: Good Referrals: Lisa Brown CNP [Primary Care Provider] - Forms: ED Satisfaction Letter SOB HPI - General Chief Complaint: ED Shortness of Breath/Dyspnea Stated Complaint: SOB Time Seen by Provider: 04/27/17 21:24 Source: patient Limitations: no limitations Nursing Notes Reviewed: Yes Vital Signs Reviewed: Yes - History of Present Illness Patient presents to the ED with a chief complaint of shortness of breath. Patient has a long-standing history of COPD and is home oxygen dependent. States that 4 weeks ago she had a flareup and her PCP called in a Z-Rodrigo and a prednisone taper, which helped her for 2 weeks. Reports that last week she had another flareup and the Z-Rodrigo and prednisone taper has not helped this time. She just finished it 2 days ago and feels like she is continuing to get worse. No fever, chills, chest pain, abdominal pain, nausea, vomiting, diarrhea, rash, pain or swelling in her legs. No history of DVT, PE, malignancy, or coronary artery disease. She does state she is currently being worked up for sleep apnea but does not wear CPAP at home. She states this feels just like her normal COPD exacerbations, except she is not getting better with her normal treatment. - Related Data Home Medications Medication Instructions Recorded Confirmed Aclidinium [place] [Tudorza 400 mcg IH BID 04/18/15 09/19/16 Pressair] Aspirin [Adult Low Dose Aspirin EC] 81 mg PO DAILY 04/18/15 09/19/16 Budesonide/Formoterol 160/4.5 2 puff IH BIDR 04/18/15 09/19/16 [Symbicort 160/4.5] Buspirone HCl [Buspar] 15 mg PO HS 04/18/15 09/20/16 Carvedilol [Coreg] 3.125 mg PO BIDWM 04/18/15 09/19/16 Roflumilast [Daliresp] 500 mcg PO DAILY 04/18/15 09/19/16 Simvastatin [Zocor] 20 mg PO DAILY 04/18/15 09/19/16 Calcium Polycarbophil [Fibercon] 625 mg PO QID PRN 08/02/15 09/19/16 Pantoprazole Sodium [Protonix] 40 mg PO DAILY 08/02/15 09/19/16 Albuterol Sulfate [Ventolin Hfa] 18 gm IH Q4H PRN 03/26/16 09/19/16 Insulin ASPART [Novolog Flexpen] 2 - 10 unit SQ TID 03/26/16 09/19/16 Insulin Glargine,Hum.rec.anlog 29 unit SQ HS 03/26/16 09/19/16 [Lantus Solostar] Ipratropium/Albuterol Neb [Duoneb] 3 ml IH Q4-6H PRN 03/26/16 09/19/16 Ondansetron HCl [Zofran] 4 mg PO TID PRN 03/26/16 09/19/16 Oxygen 2 - 3 each NS CONT 03/26/16 09/19/16 Potassium Chloride [Klor-Con] 20 meq PO DAILY 03/26/16 09/19/16 Nitroglycerin [Nitrostat] 0.4 mg SL Q5M PRN 06/27/16 09/19/16 Ranolazine [Ranexa] 500 mg PO BID 06/27/16 09/19/16 Benzonatate [Tessalon] 100 mg PO TID PRN 09/19/16 09/19/16 Dicyclomine [Bentyl] 20 mg PO QID 09/19/16 09/19/16 Glucerna 09/19/16 Rizatriptan Benzoate [Maxalt] 10 mg PO ONCE PRN 09/19/16 09/19/16 Simethicone [Gas-X] 80 mg PO QID 09/19/16 09/19/16 Zolpidem [Ambien] 5 mg PO HS 09/20/16 09/20/16 Allergies Allergy/AdvReac Type Severity Reaction Status Date / Time atorvastatin [From Lipitor] Allergy Swelling Verified 06/27/16 10:04 of Lip/Tongue/Throat bupropion [From Wellbutrin] Allergy Swelling Verified 06/27/16 10:04 of Lip/Tongue/Throat glimepiride Allergy Swelling Verified 06/27/16 10:04 of Lip/Tongue/Throat isosorbide [From Imdur] Allergy Swelling Verified 06/27/16 10:04 of Lip/Tongue/Throat lurasidone [From Latuda] Allergy Swelling Verified 06/27/16 10:04 of Lip/Tongue/Throat metformin Allergy Swelling Verified 06/27/16 10:04 of Lip/Tongue/Throat metoclopramide [From Reglan] Allergy Swelling Verified 06/27/16 10:04 of Lip/Tongue/Throat Penicillins Allergy Anaphylaxis Verified 06/27/16 10:04 prednisone Allergy Swelling Verified 09/19/16 19:00 of Lip/Tongue/Throat acetaminophen [From [place]] AdvReac Swelling Verified 09/20/16 11:17 of Lip/Tongue/Throat aspirin AdvReac Nausea Verified 09/19/16 23:23 clopidogrel [From Plavix] AdvReac Swelling Verified 06/27/16 10:04 of Lip/Tongue/Throat codeine AdvReac Nausea Verified 06/27/16 10:04 fluticasone AdvReac Swelling Verified 06/27/16 10:04 [From Advair Diskus] of Lip/Tongue/Throat hydrocodone [From [place]] AdvReac Swelling Verified 09/20/16 11:17 of Lip/Tongue/Throat Pertussis Vaccine,Adsorbed AdvReac Swelling Verified 06/27/16 10:04 of Lip/Tongue/Throat risperidone AdvReac Swelling Verified 06/27/16 10:04 of Lip/Tongue/Throat salmeterol AdvReac Swelling Verified 06/27/16 10:04 [From Advair Diskus] of Lip/Tongue/Throat tiotropium AdvReac Swelling Verified 06/27/16 10:04 [From Spiriva with of HandiHaler] Lip/Tongue/Throat venom-honey bee AdvReac Swelling Verified 06/27/16 10:04 [bee venom (honey bee)] of Lip/Tongue/Throat All systems ED: reviewed and negative except as stated. Constitutional: Denies: fever Cardiovascular: Denies: chest pain Respiratory: Reports: cough, dyspnea, wheezes, sputum production Gastrointestinal: Denies: vomiting Past Medical History - Past Medical History Attestation: Yes The following information was validated with the patient. Source: patient Medical history: Reports: cardiomyopathy, COPD, coronary artery disease, diabetes, GERD, migraine, myocardial infarction, osteoporosis, renal disease, thyroid disease, other Surgical history: Reports: appendectomy, cataract, cholecystectomy, knee replacement (right), orthopedic, other (right carpal tunnel), ANTON/BSO Psychiatric history: Reports: anxiety, bipolar, depression, panic disorder, PTSD - Social History Smoking Status: Former smoker Smokeless Tobacco Status: No Alcohol use: Reports: rarely Drug use: Reports: none Physical Exam - General Limitations: no limitations General appearance: alert, in distress (Moderate respiratory distress) - Head Head exam: atraumatic, normocephalic, normal inspection - Eye Eye exam: Present: normal appearance, PERRL, EOMI - ENT ENT exam: normal exam, normal oropharynx, mucous membranes moist - Chest Chest inspection: Present: normal inspection, symmetric chest wall rise - Respiratory Respiratory exam: Present: respiratory distress (Moderate, respiratory rate in the 30s), wheezes (But is not moving much air at all), accessory muscle use. Absent: normal lung sounds bilaterally - Cardiovascular Cardiovascular exam: Present: tachycardia - Abdominal Exam Abdominal exam: Present: soft, Non-Tender. Absent: tenderness, distention, guarding, rebound, rigidity - Extremities Exam Extremities exam: Present: normal inspection, full ROM. Absent: tenderness, pedal edema Course Course Narrative: 61-year-old female presenting with a COPD exacerbation. Patient's working quite hard to breathe. She did get 1 DuoNeb from the initial triage assessment. Do think she will need to more and Solu-Medrol. Patient will potentially need to be placed on BiPAP. Labs are coming back and appears. She could have pneumonia, which would explain why she is not improving within normal treatment. We will sign her out to the nighttime team pending reevaluation after her 3 duo nebs at finished to determine if she will need to be placed on BiPAP. Her mentation is normal and she seems to not be tiring out , but I am concerned if she continues to breathe is hard and fast that she may decompensate. Patient will definitely need to be admitted to the hospital Vital Signs Temperature 98 F 04/27/17 21:23 Pulse Rate 110 04/27/17 21:23 Respiratory Rate 28 04/27/17 21:23 Blood Pressure 122/80 04/27/17 21:23 O2 Sat by Pulse Oximetry 96 04/27/17 21:23 Temperature 98 F 04/27/17 21:23 Pulse Rate 104 04/27/17 22:02 Respiratory Rate 36 04/27/17 22:02 Blood Pressure 108/55 04/27/17 22:02 O2 Sat by Pulse Oximetry 94 04/27/17 22:02 Oxygen Delivery Oxygen Delivery Nasal Cannula Shortness of Breath/Dyspnea - Medical Records Medical records reviewed: Yes I reviewed the patient's medical records. - Lab Data Lab results reviewed: Yes I reviewed the patient's lab results. Result diagrams: 04/27/17 22:04 04/27/17 22:04 Lab Results 04/27/17 04/27/17 04/27/17 Range/Units 22:04 22:04 22:04 WBC 12.9 H (4.3-11.1) K/mcL RBC 4.72 (3.82-4.97) M/mcL Hgb 13.3 (11.5-15.4) g/dL Hct 41.7 (35.3-44.9) % MCV 88.3 (83.0-100.0) fL MCH 28.2 (28.0-33.3) pg MCHC 31.9 (31.6-35.5) g/dL RDW 13.7 (11.5-14.5) % Plt Count 345 (140-400) K/mcL MPV 9.9 (9.4-12.4) fL Immature Gran % 1.3 (0-4) % Seg Neutrophils % 64.4 % Lymphocytes % 24.8 % Monocytes % 6.9 % Eosinophils % 2.0 % Basophils % 0.6 % Neutrophils # 8.3 (1.6-8.9) K/mcL Lymphocytes # 3.2 (0.6-4.6) K/mcL Monocytes # 0.9 (0.0-1.3) K/mcL Eosinophils # 0.3 (0.0-0.6) K/mcL Basophils # 0.1 (0.0-0.2) K/mcL PT 10.6 (9.4-12.1) Seconds INR 1.0 APTT 24.3 L (26.0-36.0) Seconds VBG pH (7.32-7.42) pH Units VBG pCO2 (41-51) mmHg VBG pO2 (25-40) mmHg VBG HCO3 (21-27) mEq/L Sodium 141 (136-145) mEq/L Potassium 4.3 (3.5-4.5) mEq/L Chloride 104 (98-109) mEq/L Carbon Dioxide 27 (19-29) mEq/L BUN 8 (7-20) mg/dL Creatinine 1.13 H (0.57-1.11) mg/dL Est GFR ( Amer) 59 L (> 60) Est GFR (Non-Af Amer) 49 L (> 60) BUN/Creatinine Ratio 7 (6-26) Glucose 184 H (70-99) mg/dL Calculated Osmolality 295 (280-300) Lactic Acid (0.5-2.2) mmol/L Calcium 9.2 (8.6-10.8) mg/dL Troponin I (0-0.03) ng/mL B-Natriuretic Peptide (0-100) pg/mL 04/27/17 04/27/17 04/27/17 Range/Units 22:04 22:04 22:04 WBC (4.3-11.1) K/mcL RBC (3.82-4.97) M/mcL Hgb (11.5-15.4) g/dL Hct (35.3-44.9) % MCV (83.0-100.0) fL MCH (28.0-33.3) pg MCHC (31.6-35.5) g/dL RDW (11.5-14.5) % Plt Count (140-400) K/mcL MPV (9.4-12.4) fL Immature Gran % (0-4) % Seg Neutrophils % % Lymphocytes % % Monocytes % % Eosinophils % % Basophils % % Neutrophils # (1.6-8.9) K/mcL Lymphocytes # (0.6-4.6) K/mcL Monocytes # (0.0-1.3) K/mcL Eosinophils # (0.0-0.6) K/mcL Basophils # (0.0-0.2) K/mcL PT (9.4-12.1) Seconds INR APTT (26.0-36.0) Seconds VBG pH (7.32-7.42) pH Units VBG pCO2 (41-51) mmHg VBG pO2 (25-40) mmHg VBG HCO3 (21-27) mEq/L Sodium (136-145) mEq/L Potassium (3.5-4.5) mEq/L Chloride (98-109) mEq/L Carbon Dioxide (19-29) mEq/L BUN (7-20) mg/dL Creatinine (0.57-1.11) mg/dL Est GFR ( Amer) (> 60) Est GFR (Non-Af Amer) (> 60) BUN/Creatinine Ratio (6-26) Glucose (70-99) mg/dL Calculated Osmolality (280-300) Lactic Acid 1.5 (0.5-2.2) mmol/L Calcium (8.6-10.8) mg/dL Troponin I 0.00 (0-0.03) ng/mL B-Natriuretic Peptide 28 (0-100) pg/mL 04/27/17 Range/Units 22:04 WBC (4.3-11.1) K/mcL RBC (3.82-4.97) M/mcL Hgb (11.5-15.4) g/dL Hct (35.3-44.9) % MCV (83.0-100.0) fL MCH (28.0-33.3) pg MCHC (31.6-35.5) g/dL RDW (11.5-14.5) % Plt Count (140-400) K/mcL MPV (9.4-12.4) fL Immature Gran % (0-4) % Seg Neutrophils % % Lymphocytes % % Monocytes % % Eosinophils % % Basophils % % Neutrophils # (1.6-8.9) K/mcL Lymphocytes # (0.6-4.6) K/mcL Monocytes # (0.0-1.3) K/mcL Eosinophils # (0.0-0.6) K/mcL Basophils # (0.0-0.2) K/mcL PT (9.4-12.1) Seconds INR APTT (26.0-36.0) Seconds VBG pH 7.42 (7.32-7.42) pH Units VBG pCO2 51 (41-51) mmHg VBG pO2 57 H (25-40) mmHg VBG HCO3 33 H (21-27) mEq/L Sodium (136-145) mEq/L Potassium (3.5-4.5) mEq/L Chloride (98-109) mEq/L Carbon Dioxide (19-29) mEq/L BUN (7-20) mg/dL Creatinine (0.57-1.11) mg/dL Est GFR ( Amer) (> 60) Est GFR (Non-Af Amer) (> 60) BUN/Creatinine Ratio (6-26) Glucose (70-99) mg/dL Calculated Osmolality (280-300) Lactic Acid (0.5-2.2) mmol/L Calcium (8.6-10.8) mg/dL Troponin I (0-0.03) ng/mL B-Natriuretic Peptide (0-100) pg/mL - Radiology Data Radiology results reviewed: Yes I reviewed the patient's radiology results. Chest X-Ray 04/27/17 21:32 IMPRESSION: Right basilar atelectasis or, less likely, pneumonia. D/ / José Miguel Costa MD / José Miguel Costa MD Interpreting Provider: José Miguel Costa MD Attestation Statement - Attestation Attestation: I examined this patient and my medical decision-making was reviewed with the Resident Physician, Dr. Lorenzo. I agree with the documented findings, disposition and treatment plan as described except to the extent set forth below. Patient is a 61-year-old white female with a history of COPD, last exacerbation she required hospitalization was in August of this year. Patient states she has been having worsening shortness of breath the past few days and difficulty breathing tonight she has been on 2 rounds of antibiotics and steroids over the past 5 weeks last time was 2 weeks ago. Patient denies any fevers or chills, is having productive cough with yellowish sputum. Patient arrived hypoxic on room air improved with sublingual oxygen. Patient denies any chest pain pressure or heaviness no diaphoresis, no abdominal pain or back pain, no lower extremity pain or cramping. No prior history of risk factors for PE or DVT. Does have a history of CAD. Patient arrives tachycardic and with mild hypoxia on room air. Patient with increased work of breathing and audible wheezing. I agree with patient's physical exam findings as documented. Patient had an IV saline well- established was placed on cloth colorer and continuous pulse ox steroids and DuoNeb were ordered on arrival. Patient had an EKG was interpreted by myself without benefit of for cardiology TURBT showing a sinus tachycardia [address] or T-wave changes are seen. This was compared to prior EKG from 2016 and there are no acute changes noted At this time patient's labs are back and are all within normal limits including a negative troponin. Chest x-ray showed a questionable right lower lobe infiltrate versus atelectasis we went ahead and cover the patient on IV antibiotics for community-acquired pneumonia considering the recent antibiotic failure on Zithromax we chose Levaquin. Patient's remained hemodynamically stable and lactate is 1.5. This time patient has not had significant improvement after the first round of breathing treatments we are getting go ahead with a second round of breathing treatments if patient does not improve she may need to have BiPAP trial. Plan is to admit the patient for acute exacerbation of COPD we have signed patient out to the regrinder operator seen Dr. Berry to reassess patient following breathing treatments and determine if she will need initiated on BiPAP prior to admission as this will change her level of care. Patient remained hemodynamically stable at this time.
[2017-04-27 22:23] LABS: Calcium 9.2 mg/dL (8.6-10.8); Potassium 4.3 mEq/L (3.5-4.5)
--- NOTE | 2017-04-27 22:46 | Emergency Department Note ---
Disposition Clinical Impression: Acute exacerbation of chronic obstructive airways disease Community acquired pneumonia Qualifiers: Laterality: right Lung location: lower lobe of lung Qualified Code(s): J18.1 - Lobar pneumonia, unspecified organism Disposition: Admitted As Inpatient Condition: Undetermined SOB HPI - General Chief Complaint: ED Shortness of Breath/Dyspnea Stated Complaint: SOB Time Seen by Provider: 04/27/17 21:24 Source: patient Mode of arrival: EMS Limitations: no limitations Nursing Notes Reviewed: Yes Vital Signs Reviewed: Yes - History of Present Illness Patient signed out by day team. patient experienced COPD exacerbation roughly 4 weeks ago where she was given zpak and steroid taper. This helped her symptoms. The patient states that similar episode 2 weeks ago with similar complaints and given meds which did not help. The patient states that when her meds finished two days ago she began experiencing worsening shortness of breath. The patient states that this is unusual for her. The patient came to the ED and was tachypnic upon arrival with low O2 saturation on 2L which quickly jonnathan after breathing treatments. The patient is still tachypneic and short of breath after receiving the breathing treatments. The patient received IV solu-Medrol. The patient is still experiencing wheezing and poor air movement. We will be placing the patient on BiPAP at this time. The patient was noted to have right lower lobe possible pneumonia and was started on Levaquin. We will admit the patient at this time. Pt Subjective Complaint: shortness of breath Onset (ago): day(s) (2) Severity: moderate Consistency/Duration: constant, gradually worsening Improves with: oxygen, bronchodilators Worsens with: exertion, coughing Known history of: COPD Associated symptoms: Reports: cough, wheezing, sputum production Treatment prior to arrival: oxygen Cough present: Yes Cough Description: Involuntary, Productive Cough Frequency: Persistent Sputum production: Yes Sputum Amount: Scant Sputum Color: White - Related Data Home oxygen amount: 2 liters Home Medications Medication Instructions Recorded Confirmed Aclidinium [place] [Tudorza 400 mcg IH BID 04/18/15 09/19/16 Pressair] Aspirin [Adult Low Dose Aspirin EC] 81 mg PO DAILY 04/18/15 09/19/16 Budesonide/Formoterol 160/4.5 2 puff IH BIDR 04/18/15 09/19/16 [Symbicort 160/4.5] Buspirone HCl [Buspar] 15 mg PO HS 04/18/15 09/20/16 Carvedilol [Coreg] 3.125 mg PO BIDWM 04/18/15 09/19/16 Roflumilast [Daliresp] 500 mcg PO DAILY 04/18/15 09/19/16 Simvastatin [Zocor] 20 mg PO DAILY 04/18/15 09/19/16 Calcium Polycarbophil [Fibercon] 625 mg PO QID PRN 08/02/15 09/19/16 Pantoprazole Sodium [Protonix] 40 mg PO DAILY 08/02/15 09/19/16 Albuterol Sulfate [Ventolin Hfa] 18 gm IH Q4H PRN 03/26/16 09/19/16 Insulin ASPART [Novolog Flexpen] 2 - 10 unit SQ TID 03/26/16 09/19/16 Insulin Glargine,Hum.rec.anlog 29 unit SQ HS 03/26/16 09/19/16 [Lantus Solostar] Ipratropium/Albuterol Neb [Duoneb] 3 ml IH Q4-6H PRN 03/26/16 09/19/16 Ondansetron HCl [Zofran] 4 mg PO TID PRN 03/26/16 09/19/16 Oxygen 2 - 3 each NS CONT 03/26/16 09/19/16 Potassium Chloride [Klor-Con] 20 meq PO DAILY 03/26/16 09/19/16 Nitroglycerin [Nitrostat] 0.4 mg SL Q5M PRN 06/27/16 09/19/16 Ranolazine [Ranexa] 500 mg PO BID 06/27/16 09/19/16 Benzonatate [Tessalon] 100 mg PO TID PRN 09/19/16 09/19/16 Dicyclomine [Bentyl] 20 mg PO QID 09/19/16 09/19/16 Glucerna 09/19/16 Rizatriptan Benzoate [Maxalt] 10 mg PO ONCE PRN 09/19/16 09/19/16 Simethicone [Gas-X] 80 mg PO QID 09/19/16 09/19/16 Zolpidem [Ambien] 5 mg PO HS 09/20/16 09/20/16 Allergies Allergy/AdvReac Type Severity Reaction Status Date / Time atorvastatin [From Lipitor] Allergy Swelling Verified 06/27/16 10:04 of Lip/Tongue/Throat bupropion [From Wellbutrin] Allergy Swelling Verified 06/27/16 10:04 of Lip/Tongue/Throat glimepiride Allergy Swelling Verified 06/27/16 10:04 of Lip/Tongue/Throat isosorbide [From Imdur] Allergy Swelling Verified 06/27/16 10:04 of Lip/Tongue/Throat lurasidone [From Latuda] Allergy Swelling Verified 06/27/16 10:04 of Lip/Tongue/Throat metformin Allergy Swelling Verified 06/27/16 10:04 of Lip/Tongue/Throat metoclopramide [From Reglan] Allergy Swelling Verified 06/27/16 10:04 of Lip/Tongue/Throat Penicillins Allergy Anaphylaxis Verified 06/27/16 10:04 prednisone Allergy Swelling Verified 09/19/16 19:00 of Lip/Tongue/Throat acetaminophen [From [place]] AdvReac Swelling Verified 09/20/16 11:17 of Lip/Tongue/Throat aspirin AdvReac Nausea Verified 09/19/16 23:23 clopidogrel [From Plavix] AdvReac Swelling Verified 06/27/16 10:04 of Lip/Tongue/Throat codeine AdvReac Nausea Verified 06/27/16 10:04 fluticasone AdvReac Swelling Verified 06/27/16 10:04 [From Advair Diskus] of Lip/Tongue/Throat hydrocodone [From [place]] AdvReac Swelling Verified 09/20/16 11:17 of Lip/Tongue/Throat Pertussis Vaccine,Adsorbed AdvReac Swelling Verified 06/27/16 10:04 of Lip/Tongue/Throat risperidone AdvReac Swelling Verified 06/27/16 10:04 of Lip/Tongue/Throat salmeterol AdvReac Swelling Verified 06/27/16 10:04 [From Advair Diskus] of Lip/Tongue/Throat tiotropium AdvReac Swelling Verified 06/27/16 10:04 [From Spiriva with of HandiHaler] Lip/Tongue/Throat venom-honey bee AdvReac Swelling Verified 06/27/16 10:04 [bee venom (honey bee)] of Lip/Tongue/Throat All systems ED: reviewed and negative except as stated. Constitutional: Denies: fever Cardiovascular: Denies: chest pain Respiratory: Reports: cough, dyspnea, wheezes, sputum production Gastrointestinal: Denies: vomiting Past Medical History - Past Medical History Attestation: Yes The following information was validated with the patient. Source: patient, old records reviewed Medical history: Reports: cardiomyopathy, COPD, coronary artery disease, diabetes, GERD, migraine, myocardial infarction, osteoporosis, renal disease, thyroid disease, other Surgical history: Reports: appendectomy, cataract, cholecystectomy, knee replacement (right), orthopedic, other (right carpal tunnel), ANTON/BSO Psychiatric history: Reports: anxiety, bipolar, depression, panic disorder, PTSD - Social History Smoking Status: Former smoker Smokeless Tobacco Status: No Alcohol use: Reports: rarely Drug use: Reports: none Physical Exam - General Limitations: no limitations General appearance: alert, in distress (Moderate respiratory distress) - Head Head exam: atraumatic, normocephalic, normal inspection - Neck Neck exam: Present: normal inspection, full ROM, trachea midline - Chest Chest inspection: Present: normal inspection, symmetric chest wall rise - Respiratory Respiratory exam: Present: wheezes, accessory muscle use - Expanded Respiratory Exam Location: rhonchi: Right, Lower - Cardiovascular Cardiovascular exam: Present: normal rhythm, tachycardia, normal heart sounds - Abdominal Exam Abdominal exam: Present: soft, Non-Tender. Absent: tenderness, distention, guarding, rebound, rigidity - Extremities Exam Extremities exam: Present: normal inspection, full ROM. Absent: tenderness, pedal edema - Neurological Exam Neurological exam: Present: alert, oriented X3 - Skin Skin exam: Present: warm, dry, intact, normal color Course Vital Signs Temperature 98 F 04/27/17 21:23 Pulse Rate 110 04/27/17 21:23 Respiratory Rate 28 04/27/17 21:23 Blood Pressure 122/80 04/27/17 21:23 O2 Sat by Pulse Oximetry 96 04/27/17 21:23 Temperature 98 F 04/27/17 21:23 Pulse Rate 100 04/27/17 23:52 Respiratory Rate 22 04/28/17 00:17 Blood Pressure 130/77 04/28/17 00:17 O2 Sat by Pulse Oximetry 97 04/27/17 23:52 Oxygen Delivery Oxygen Delivery Nasal Cannula Shortness of Breath/Dyspnea - MDM Narrative Medical decision making narrative: Patient's workup here in the emergency department demonstrates patient with respiratory distress likely accommodation of COPD exacerbation combined with pneumonia. The patient does have a right lower lobe infiltrate versus atelectasis. Patient was administered Levaquin. The patient was placed on BiPAP as well as administered breathing treatments. She is resting comfortably at this time it does not appear in any respiratory distress. We will admit the patient to the hospitalist at this time accepted by Dr. Acevedo - Lab Data Lab results reviewed: Yes I reviewed the patient's lab results. Result diagrams: 04/27/17 22:04 04/27/17 22:04 Lab Results 04/27/17 04/27/17 04/27/17 Range/Units 22:04 22:04 22:04 WBC 12.9 H (4.3-11.1) K/mcL RBC 4.72 (3.82-4.97) M/mcL Hgb 13.3 (11.5-15.4) g/dL Hct 41.7 (35.3-44.9) % MCV 88.3 (83.0-100.0) fL MCH 28.2 (28.0-33.3) pg MCHC 31.9 (31.6-35.5) g/dL RDW 13.7 (11.5-14.5) % Plt Count 345 (140-400) K/mcL MPV 9.9 (9.4-12.4) fL Immature Gran % 1.3 (0-4) % Seg Neutrophils % 64.4 % Lymphocytes % 24.8 % Monocytes % 6.9 % Eosinophils % 2.0 % Basophils % 0.6 % Neutrophils # 8.3 (1.6-8.9) K/mcL Lymphocytes # 3.2 (0.6-4.6) K/mcL Monocytes # 0.9 (0.0-1.3) K/mcL Eosinophils # 0.3 (0.0-0.6) K/mcL Basophils # 0.1 (0.0-0.2) K/mcL PT 10.6 (9.4-12.1) Seconds INR 1.0 APTT 24.3 L (26.0-36.0) Seconds VBG pH (7.32-7.42) pH Units VBG pCO2 (41-51) mmHg VBG pO2 (25-40) mmHg VBG HCO3 (21-27) mEq/L Sodium 141 (136-145) mEq/L Potassium 4.3 (3.5-4.5) mEq/L Chloride 104 (98-109) mEq/L Carbon Dioxide 27 (19-29) mEq/L BUN 8 (7-20) mg/dL Creatinine 1.13 H (0.57-1.11) mg/dL Est GFR ( Amer) 59 L (> 60) Est GFR (Non-Af Amer) 49 L (> 60) BUN/Creatinine Ratio 7 (6-26) Glucose 184 H (70-99) mg/dL Calculated Osmolality 295 (280-300) Lactic Acid (0.5-2.2) mmol/L Calcium 9.2 (8.6-10.8) mg/dL Troponin I (0-0.03) ng/mL B-Natriuretic Peptide (0-100) pg/mL 04/27/17 04/27/17 04/27/17 Range/Units 22:04 22:04 22:04 WBC (4.3-11.1) K/mcL RBC (3.82-4.97) M/mcL Hgb (11.5-15.4) g/dL Hct (35.3-44.9) % MCV (83.0-100.0) fL MCH (28.0-33.3) pg MCHC (31.6-35.5) g/dL RDW (11.5-14.5) % Plt Count (140-400) K/mcL MPV (9.4-12.4) fL Immature Gran % (0-4) % Seg Neutrophils % % Lymphocytes % % Monocytes % % Eosinophils % % Basophils % % Neutrophils # (1.6-8.9) K/mcL Lymphocytes # (0.6-4.6) K/mcL Monocytes # (0.0-1.3) K/mcL Eosinophils # (0.0-0.6) K/mcL Basophils # (0.0-0.2) K/mcL PT (9.4-12.1) Seconds INR APTT (26.0-36.0) Seconds VBG pH (7.32-7.42) pH Units VBG pCO2 (41-51) mmHg VBG pO2 (25-40) mmHg VBG HCO3 (21-27) mEq/L Sodium (136-145) mEq/L Potassium (3.5-4.5) mEq/L Chloride (98-109) mEq/L Carbon Dioxide (19-29) mEq/L BUN (7-20) mg/dL Creatinine (0.57-1.11) mg/dL Est GFR ( Amer) (> 60) Est GFR (Non-Af Amer) (> 60) BUN/Creatinine Ratio (6-26) Glucose (70-99) mg/dL Calculated Osmolality (280-300) Lactic Acid 1.5 (0.5-2.2) mmol/L Calcium (8.6-10.8) mg/dL Troponin I 0.00 (0-0.03) ng/mL B-Natriuretic Peptide 28 (0-100) pg/mL 04/27/17 Range/Units 22:04 WBC (4.3-11.1) K/mcL RBC (3.82-4.97) M/mcL Hgb (11.5-15.4) g/dL Hct (35.3-44.9) % MCV (83.0-100.0) fL MCH (28.0-33.3) pg MCHC (31.6-35.5) g/dL RDW (11.5-14.5) % Plt Count (140-400) K/mcL MPV (9.4-12.4) fL Immature Gran % (0-4) % Seg Neutrophils % % Lymphocytes % % Monocytes % % Eosinophils % % Basophils % % Neutrophils # (1.6-8.9) K/mcL Lymphocytes # (0.6-4.6) K/mcL Monocytes # (0.0-1.3) K/mcL Eosinophils # (0.0-0.6) K/mcL Basophils # (0.0-0.2) K/mcL PT (9.4-12.1) Seconds INR APTT (26.0-36.0) Seconds VBG pH 7.42 (7.32-7.42) pH Units VBG pCO2 51 (41-51) mmHg VBG pO2 57 H (25-40) mmHg VBG HCO3 33 H (21-27) mEq/L Sodium (136-145) mEq/L Potassium (3.5-4.5) mEq/L Chloride (98-109) mEq/L Carbon Dioxide (19-29) mEq/L BUN (7-20) mg/dL Creatinine (0.57-1.11) mg/dL Est GFR ( Amer) (> 60) Est GFR (Non-Af Amer) (> 60) BUN/Creatinine Ratio (6-26) Glucose (70-99) mg/dL Calculated Osmolality (280-300) Lactic Acid (0.5-2.2) mmol/L Calcium (8.6-10.8) mg/dL Troponin I (0-0.03) ng/mL B-Natriuretic Peptide (0-100) pg/mL - Radiology Data Radiology results reviewed: Yes I reviewed the patient's radiology results. Attestation Statement - Attestation Attestation: I, Rui Berry MD, personally evaluated this patient and discussed their management with the resident physician. I reviewed the resident's note and agree with the documented findings, medical decision making, and plan of care. This patient was signed out at shift change from Dr. Lorenzo and Dr. George oRmano. Please refer to their notes for complete details of history and physical examination. At shift change patient's labs are all back and she has received treatment for acute exacerbation of COPD. X-ray shows possible pneumonia. She was placed on BiPAP and her symptoms improved significantly. On examination patient is a well-developed well-nourished elderly female in no acute distress. She is alert and oriented 3. There is no cyanosis or diaphoresis. Breath sounds are decreased bilaterally. Heart regular rate and rhythm. Abdomen soft and nontender with normal bowel sounds. The hospitalist, Dr. Acevedo, was consulted and accepted admission of the patient.
[2017-04-28] MEDS ORDERED: *HR* Morphine 2 MG/ML SYRINGE IVP PRN (00:10)
[2017-04-28] MEDS ORDERED: Naloxone 0.4 MG/ML INJ IVP PRN (00:10)
[2017-04-28] MEDS ORDERED: Benzonatate 100 MG CAPSULE PO PRN (00:17)
[2017-04-28] MEDS ORDERED: Nitroglycerin 0.4 MG TAB.SUBL SL PRN (00:17)
[2017-04-28] MEDS ORDERED: OXYGEN NS SCH (00:30)
--- NOTE | 2017-04-28 01:25 | Internal Med History&Physical ---
Date of Encounter: 04/28/17 Time of Encounter: 01:10 Assessment and Plan (1) COPD with exacerbation Current visit: No Status: Acute Acute exacerbation of COPD - with probable community-acquired pneumonia, present on admission Continue DuoNeb breathing treatment, empiric IV Levaquin Symbicort, IV Solu-Medrol, continue BiPAP Cultures - pending Chest x-ray - right basilar atelectasis, otherwise clear WBC - 12.9 Lactic acid - 1.5 Cardiac telemetry, continuous pulse ox, labs in a.m., monitor closely (2) Diabetes Current visit: No Status: Chronic Diabetes mellitus type 2, insulin-dependent, hyperglycemia Continue Levemir, insulin sliding scale, glucose checks Qualifiers: Diabetes mellitus type: type 2 Diabetes mellitus complication status: with hyperglycemia Diabetes mellitus retirement insulin use: with retirement use Qualified Code(s): E11.65 - Type 2 diabetes mellitus with hyperglycemia; 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 transplanted heart: [place] heart Associated angina: with unspecified angina Qualified Code(s): I25.119 - Atherosclerotic heart disease of [place] coronary artery with unspecified angina pectoris (4) Hyperlipemia Current visit: No Status: Chronic Continue statin Qualifiers: Hyperlipidemia type: unspecified Qualified Code(s): E78.5 - Hyperlipidemia , unspecified (5) CKD (chronic kidney disease) stage 3, GFR 30-59 ml/min Current visit: No Status: Chronic Chronic disease stage III, stable, creatinine GFR baseline (6) DVT prophylaxis Current visit: Yes Status: Acute Continue heparin subcutaneous Internal Medicine - H&P: HPI Chief complaint: Shortness of breath Admitted From: Emergency Dept Plans for Post Hospital Care: Home History of present illness: Ms. Gomez is a 61 year old female with past medical history of COPD, coronary artery disease, diabetes, hypertension, renal disease, CHF, hyperlipidemia, anxiety, bipolar disorder and depression. Patient presented to ED with complaints of shortness of breath. Examined in the room. Patient is awake and alert. She is in mild distress. Able to provide all history. No family members at bedside. Patient states that she developed shortness of breath about 4 weeks ago. She was initially started on a Z-Rodrigo for probable pneumonia and/or COPD exacerbation. She was also on prednisone tapering dose. This helped her for a few weeks. Patient states about one week ago her symptoms returned and gradually been worsening. She also has some cough with mild sputum production. She is trying a breathing treatment but it did not help. She has not been using her CPAP, because it is very uncomfortable for her. Symptoms are worse with exertion. No alleviating factors. Patient states this is her regular COPD flareup. She does follow up with pulmonology regularly. Patient denies chest pain, denies headache or dizziness or palpitations or vomiting or fever. No other associated symptoms. No other acute complaints. Initial workup in the ED is significant for elevated white count and x-ray shows right basilar atelectasis, otherwise clear. Patient is being admitted for COPD exacerbation and probable pneumonia present on admission. Patient will need BiPAP and DuoNeb breathing treatment and Solu-Medrol. Patient has been explained about her condition and plan of care. She understood and agreed. No unanswered questions. CODE STATUS full code. Past Med Surg Social Fam HX - Past Medical History Medical history: cardiomyopathy, COPD, coronary artery disease, diabetes, GERD, migraine, myocardial infarction, osteoporosis, renal disease, thyroid disease, other Psychiatric history: anxiety, bipolar, depression, panic disorder, PTSD - Past Surgical History Surgical History: appendectomy, cataract, cholecystectomy, knee replacement ( right), orthopedic, other (right carpal tunnel), ANTON/BSO - Social History Smoking Status: Former smoker Smokeless Tobacco Status: No Alcohol use: rarely Drug use: none - Family History Father Adopted: No Family Member Ethnicity: Non- Living Status: Hx Family Cardiac Disorders: Yes (CAD,HTN) Hx Family Respiratory Disorders: No Hx Family Cancer: No Hx Family GI Disorders: Yes Hx Family Endocrine Disorder: Yes (DM) Hx Family Neuromuscular Disorders: No Hx Family Neurologic Disorders: No Hx Family HEENT Disorders: No Hx Family Autoimmune Disorders: No Internal Medicine - H&P: Meds Aclidinium [place] [Tudorza Pressair] 400 mcg IH BID 04/18/15 [History] Aspirin [Adult Low Dose Aspirin EC] 81 mg PO DAILY 04/18/15 [History] Budesonide/Formoterol 160/4.5 [Symbicort 160/4.5] 2 puff IH BIDR 04/18/15 [ History] Buspirone HCl [Buspar] 15 mg PO HS 04/18/15 [History] Carvedilol [Coreg] 3.125 mg PO BIDWM 04/18/15 [History] Roflumilast [Daliresp] 500 mcg PO DAILY 04/18/15 [History] Simvastatin [Zocor] 20 mg PO DAILY 04/18/15 [History] Calcium Polycarbophil [Fibercon] 625 mg PO QID PRN 08/02/15 [History] Pantoprazole Sodium [Protonix] 40 mg PO DAILY 08/02/15 [History] Albuterol Sulfate [Ventolin Hfa] 18 gm IH Q4H PRN 03/26/16 [History] Insulin ASPART [Novolog Flexpen] 2 - 14 unit SQ TID 03/26/16 [History] Insulin Glargine,Hum.rec.anlog [Lantus Solostar] 36 unit SQ HS 03/26/16 [History ] Ipratropium/Albuterol Neb [Duoneb] 3 ml IH Q4-6H PRN 03/26/16 [History] Ondansetron HCl [Zofran] 4 mg PO TID PRN 03/26/16 [History] Oxygen 2 - 3 each NS CONT 03/26/16 [History] Potassium Chloride [Klor-Con] 20 meq PO DAILY 03/26/16 [History] Nitroglycerin [Nitrostat] 0.4 mg SL Q5M PRN 06/27/16 [History] Ranolazine [Ranexa] 1,000 mg PO BID 06/27/16 [History] Benzonatate [Tessalon] 100 mg PO TID PRN 09/19/16 [History] Glucerna 09/19/16 [History] Rizatriptan Benzoate [Maxalt] 10 mg PO ONCE PRN 09/19/16 [History] Simethicone [Gas-X] 80 mg PO QID 09/19/16 [History] Promethazine [Phenergan] 12.5 mg PO Q8HR PRN 04/28/17 [History] 3 Allergy/AdvReac Type Severity Reaction Status Date / Time atorvastatin [From Lipitor] Allergy Swelling Verified 06/27/16 10:04 of Lip/Tongue/Throat bupropion [From Wellbutrin] Allergy Swelling Verified 06/27/16 10:04 of Lip/Tongue/Throat glimepiride Allergy Swelling Verified 06/27/16 10:04 of Lip/Tongue/Throat isosorbide [From Imdur] Allergy Swelling Verified 06/27/16 10:04 of Lip/Tongue/Throat lurasidone [From Latuda] Allergy Swelling Verified 06/27/16 10:04 of Lip/Tongue/Throat metformin Allergy Swelling Verified 06/27/16 10:04 of Lip/Tongue/Throat metoclopramide [From Reglan] Allergy Swelling Verified 06/27/16 10:04 of Lip/Tongue/Throat Penicillins Allergy Anaphylaxis Verified 06/27/16 10:04 prednisone Allergy Swelling Verified 09/19/16 19:00 of Lip/Tongue/Throat acetaminophen [From [place]] AdvReac Swelling Verified 09/20/16 11:17 of Lip/Tongue/Throat aspirin AdvReac Nausea Verified 09/19/16 23:23 clopidogrel [From Plavix] AdvReac Swelling Verified 06/27/16 10:04 of Lip/Tongue/Throat codeine AdvReac Nausea Verified 06/27/16 10:04 fluticasone AdvReac Swelling Verified 06/27/16 10:04 [From Advair Diskus] of Lip/Tongue/Throat hydrocodone [From [place]] AdvReac Swelling Verified 09/20/16 11:17 of Lip/Tongue/Throat Pertussis Vaccine,Adsorbed AdvReac Swelling Verified 06/27/16 10:04 of Lip/Tongue/Throat risperidone AdvReac Swelling Verified 06/27/16 10:04 of Lip/Tongue/Throat salmeterol AdvReac Swelling Verified 06/27/16 10:04 [From Advair Diskus] of Lip/Tongue/Throat tiotropium AdvReac Swelling Verified 06/27/16 10:04 [From Spiriva with of HandiHaler] Lip/Tongue/Throat venom-honey bee AdvReac Swelling Verified 06/27/16 10:04 [bee venom (honey bee)] of Lip/Tongue/Throat All Systems PM: A 10-system review of systems was performed and is negative for pertinent findings except as documented above in the HPI. - Constitutional Constitutional: fatigue, weakness, no fever(s) - EENT Eyes: no blurry vision - Cardiovascular Cardiovascular ROS IM: dyspnea, dyspnea on exertion, orthopnea, no chest pain, no claudication, no diaphoresis, no edema, no lightheadedness, no palpitations, no syncope - Respiratory Respiratory: cough, dyspnea, dyspnea on exertion, wheezing, chest congestion, no hemoptysis - Gastrointestinal Gastrointestinal: no abdominal pain, no bloating, no cramping, no diarrhea, no hematemesis, no hematochezia, no nausea, no vomiting - Genitourinary Genitourinary: no dysuria - Neurological Neurological ROS: no abnormal gait, no confusion, no dizziness, no loss of vision, no numbness, no tingling - Constitutional Vitals: Temp Pulse Resp BP Pulse Ox 98 F 100 22 130/77 97 04/27/17 21:23 04/27/17 23:52 04/28/17 00:17 04/28/17 00:17 04/27/17 23:52 General appearance: Present: mild distress, A&O X 3, pleasant, obese, answers questions appropriately - Head Head exam: Present: atraumatic - Eye Eye exam: Present: EOMI - ENT ENT exam: Present: mucous membranes dry - Respiratory Respiratory exam: Present: accessory muscle use, decreased breath sounds ( Bibasilar), wheezes (Bilateral), tachypnea. Absent: chest wall tenderness, rales, rhonchi - Cardiovascular Cardiovascular exam: Present: RRR, +S1, +S2 - GI/Abdominal GI/Abdominal exam: Present: soft. Absent: distended, firm, guarding, tenderness - Extremities Exam Extremities exam: Present: radial pulses palpable and symmetrical. Absent: calf tenderness, cyanotic, pedal edema - Neurological Exam Neurological exam: Present: alert, oriented X3, no focal deficits. Absent: facial droop, speech deficit Internal Med - H&P Results - Labs CBC & Chem 7: 04/27/17 22:04 04/27/17 22:04
[2017-04-28] MEDS ORDERED: Dextrose Gel 15 GM PO PRN ×2 (01:27)
[2017-04-28] MEDS ORDERED: *HR* Dextrose 50 % in Water (Syg) 50 ML SYRINGE IVP PRN (01:27)
[2017-04-28] MEDS ORDERED: D5% in Water 1,000 ML IVC PRN (01:27)
[2017-04-28] MEDS ORDERED: FLUARIX QUAD 2017-18 36MOS UP/PF 0.5 ML SYRINGE IM ONE (01:57)
[2017-04-28] MEDS: Ipratropium/Albuterol Neb 3 ML IH SCH ×3 (03:43→12:59)
[2017-04-28 04:47] LABS: Basophils % 0.2 %; Eosinophils % 0.1 %; Hematocrit 40.7 % (35.3-44.9); Hemoglobin 12.7 g/dL (11.5-15.4); Immature Granulocytes % 1.4 % (0-4); Lymphocytes # 0.8 K/mcL (0.6-4.6); Lymphocytes % 6.6 %; Mean Corpuscular HGB Conc 31.2 g/dL (31.6-35.5); Mean Corpuscular Hemoglobin 27.7 pg (28.0-33.3); Mean Corpuscular Volume 88.7 fL (83.0-100.0); Mean Platelet Volume 10.2 fL (9.4-12.4); Monocytes # 0.1 K/mcL (0.0-1.3); Monocytes % 0.5 %; Neutrophils # 11.3 K/mcL (1.6-8.9); Platelet Count 343 K/mcL (140-400); Red Blood Count 4.59 M/mcL (3.82-4.97); Red Cell Distribution Width 13.9 % (11.5-14.5); Segmented Neutrophils % 91.2 %
[2017-04-28 05:09] LABS: Chol/HDL Ratio 2.5 (0-4.9); Magnesium 1.5 mg/dL (1.6-2.6); Potassium 4.8 mEq/L (3.5-4.5)
[2017-04-28] MEDS ORDERED: Famotidine 20 MG/2 ML VIAL IVP SCH (06:00)
[2017-04-28] MEDS: *HR* Heparin 5,000 UNIT/ML VIAL SQ SCH ×2 (06:47→17:08)
[2017-04-28] MEDS: methylPREDNISolone 125 MG/2 ML VIAL IVP SCH ×3 (08:30→23:32)
[2017-04-28] MEDS: Aspirin Enteric Coated 81 MG Tablet PO SCH (08:30)
[2017-04-28] MEDS: Insulin LISPRO 300 UNITS/3 ML VIAL SQ SCH ×3 (08:31→17:07)
[2017-04-28] MEDS: (Aclidinium Bromide [Tudorza Pressair] 400 MCG) IH SCH ×2 (08:31→21:06)
[2017-04-28] MEDS: Budesonide/Formoterol 160/4.5 MDI IH SCH ×2 (08:50→20:59)
[2017-04-28] MEDS ORDERED: (Roflumilast [Daliresp] 500 MCG) PO SCH (09:00)
[2017-04-28] MEDS ORDERED: Ranolazine 500 MG TAB.ER.12H PO SCH (09:00)
[2017-04-28] MEDS ORDERED: Budesonide/Formoterol 160/4.5 MDI IH SCH (10:00)
[2017-04-28 11:20] LABS: Bilirubin,Urine Negative (Negative); Blood,Urine Negative (Negative); Clarity,Urine Clear (Clear); Color,Urine Yellow (Yellow); Glucose,Urine (UA) >=1000 mg/dL (Normal); Ketones,Urine Negative (Negative); Leukocyte Esterase,Urine Negative (Negative); Nitrite,Urine Negative (Negative); PH,Urine 6.5 pH Units (5.0-8.0); Protein,Urine Negative (Neg-Trace); Specific Gravity,Urine 1.013 (1.010-1.025); Urobilinogen,Urine Normal (Normal)
[2017-04-28] MEDS: Acetaminophen 325 MG TABLET PO PRN ×2 (11:30→17:16)
[2017-04-28] MEDS ORDERED: RIZATRIPTAN 10 MG PO PRN ×2 (11:37→12:00)
[2017-04-28] MEDS: Simethicone 80 MG TAB.CHEW PO PRN ×3 (13:55→20:24)
[2017-04-28] MEDS ORDERED: Magnesium Sulfate 1 GM in D5% in Water 100 ML IVPB ONE (16:15)
[2017-04-28] MEDS: Ipratropium Neb 0.5 MG NEBULIZER IH SCH ×2 (16:29→20:59)
[2017-04-28] MEDS: Levalbuterol Neb 1.25 MG/3 ML IH SCH ×2 (16:29→20:58)
--- NOTE | 2017-04-28 17:14 | Electrocardiograph Report ---
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
--- NOTE | 2017-04-28 18:42 | Internal Med Progress Note ---
Date of Encounter: 04/28/17 Time of Encounter: 12:30 - Assessment and plan (1) COPD with exacerbation Current Visit: No Status: Acute Assessment and plan: scheduled Duo Nebs, solu medrol, Levaquin. She has brought her own home medications, she will be allowed to use her controller medications and diabetic medications as some are not available. We will use a sliding scale to cover any hyperglycemia from corticosteroid therapy. (2) Community acquired pneumonia Current Visit: Yes Status: Acute Assessment and plan: As above, and follow-up WBC and monitor for fevers. Qualifiers: Laterality: right Lung location: unspecified part of lung Qualified Code( s): J18.9 - Pneumonia, unspecified organism (3) Diabetes Current Visit: No Status: Chronic Assessment and plan: Patient brought home medications. Will use sliding scale to supplement. 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 Most likely caused by pneumonia. Failed outpatient therapy of azithromycin. She was admitted and given Duo Neb treatments, corticosteroids, and Levaquin. She states she feels relief after Duo Neb treatments but still very short of breath. She was told in the past she is stage III COPD. She currently denies cp, fevers/chills, n/v, diaphoresis, palpitations. - Constitutional Vitals: Temp Pulse Resp BP Pulse Ox 98.3 F 104 24 117/69 97 04/28/17 15:13 04/28/17 15:13 04/28/17 16:31 04/28/17 16:31 04/28/17 16:31 Exam: Gen: AAOx3, mild resp distress CVS: RRR Lungs: Using accessory muscles to breath, good air exchange, +end experatory wheezing, no rales no rhonchi. Ext: no cyanosis, no edema Internal Medicine: Result - Labs CBC & Chem 7: 04/28/17 04:16 04/28/17 04:16 Labs: Short CBC 04/28/17 Range/Units 04:16 WBC 12.4 H (4.3-11.1) K/mcL Hgb 12.7 (11.5-15.4) g/dL Hct 40.7 (35.3-44.9) % Plt Count 343 (140-400) K/mcL Neutrophils # 11.3 H (1.6-8.9) K/mcL BMP 04/28/17 04:16 Sodium 135 L Potassium 4.8 H Chloride 101 Carbon Dioxide 25 BUN 12 Creatinine 1.32 H Glucose 311 H Calcium 9.0 Urine 04/28/17 Range/Units 11:00 Urine Color Yellow (Yellow) Urine Clarity Clear (Clear) Urine pH 6.5 (5.0-8.0) pH Units Ur Specific [place] 1.013 (1.010-1.025) Urine Protein Negative (Neg-Trace) mg/dL Urine Glucose (UA) >=1000 H (Normal) mg/dL - ABG Interpretation ABG results: PT/INR, D-dimer PT 10.6 Seconds (9.4-12.1) 04/27/17 22:04 Consult Discharge Plan - Plan Referrals: Lisa Brown CNP [Primary Care Provider] - 05/05/17 1:30 pm ()
[2017-04-28] MEDS: Ondansetron 4 MG/2 ML VIAL IVP PRN (20:23)
[2017-04-28] MEDS: Ranolazine 500 MG TAB.ER.12H PO SCH (20:23)
[2017-04-28] MEDS ORDERED: Insulin DETEMIR 100 UNIT/ML X5UNITS SQ SCH (21:00)
[2017-04-28] MEDS ORDERED: Insulin LISPRO 300 UNITS/3 ML VIAL SQ SCH (21:00)
[2017-04-28] MEDS ORDERED: TOUJEO 300 UNIT/ML SQ SCH (21:00)
[2017-04-29] MEDS: Ipratropium Neb 0.5 MG NEBULIZER IH SCH ×6 (00:59→20:58)
[2017-04-29] MEDS: Levalbuterol Neb 1.25 MG/3 ML IH SCH ×6 (00:59→20:58)
[2017-04-29 05:27] LABS: Basophils % 0.1 %; Hematocrit 38.5 % (35.3-44.9); Immature Granulocytes % 1.1 % (0-4); Lymphocytes % 6.1 %; Mean Corpuscular HGB Conc 31.2 g/dL (31.6-35.5); Mean Corpuscular Hemoglobin 27.7 pg (28.0-33.3); Mean Corpuscular Volume 88.9 fL (83.0-100.0); Monocytes # 0.3 K/mcL (0.0-1.3); Monocytes % 1.7 %; Neutrophils # 14.7 K/mcL (1.6-8.9); Platelet Count 330 K/mcL (140-400); Red Blood Count 4.33 M/mcL (3.82-4.97); Red Cell Distribution Width 13.9 % (11.5-14.5)
[2017-04-29 05:58] LABS: Calcium 9.2 mg/dL (8.6-10.8); Potassium 5.1 mEq/L (3.5-4.5)
[2017-04-29] MEDS: *HR* Heparin 5,000 UNIT/ML VIAL SQ SCH ×2 (05:59→19:24)
[2017-04-29] MEDS: Aspirin Enteric Coated 81 MG Tablet PO SCH (08:38)
[2017-04-29] MEDS: Cholecalciferol (D-3) 1,000 UNIT TABLET PO SCH (08:38)
[2017-04-29] MEDS: Ranolazine 500 MG TAB.ER.12H PO SCH ×2 (08:39→20:23)
[2017-04-29] MEDS: Loratadine 10 MG TABLET PO SCH (08:39)
[2017-04-29] MEDS: Multivit/Ca/Min/Fe/FA 1 TAB TABLET PO SCH (08:40)
[2017-04-29] MEDS: methylPREDNISolone 125 MG/2 ML VIAL IVP SCH (08:42)
[2017-04-29] MEDS: Insulin LISPRO 300 UNITS/3 ML VIAL SQ SCH ×3 (08:42→17:16)
[2017-04-29] MEDS: (Aclidinium Bromide [Tudorza Pressair] 400 MCG) IH SCH ×2 (08:44→20:16)
[2017-04-29] MEDS: Budesonide/Formoterol 160/4.5 MDI IH SCH ×2 (09:04→20:58)
[2017-04-29] MEDS: Simethicone 80 MG TAB.CHEW PO PRN ×4 (09:07→20:22)
--- NOTE | 2017-04-29 10:00 | Internal Med Progress Note ---
Date of Encounter: 04/29/17 Time of Encounter: 09:30 - Assessment and plan (1) Leukocytosis Current Visit: Yes Status: Acute Assessment and plan: likely related to use of IV steroids; will decrease steroid dose today, continue to monitor. Qualifiers: Leukocytosis type: unspecified Qualified Code(s): D72.829 - Elevated white blood cell count, unspecified (2) COPD with exacerbation Current Visit: Yes Status: Acute Assessment and plan: Improving. Continue bronchodilators, taper down IV steroids as tolerated; continue IV antibiotics, ICS/LABA and other home meds; patient will likely require senior living oral steroids as an outpatient, due to advanced COPD; will need to f/up with Pulmonology as outpatient; Overnight BiPAP qualification study completed, patient qualifies for BiPAP, prescription written for EPAP- 10, IPAP- 10; (3) Diabetes Current Visit: Yes Status: Chronic Assessment and plan: Noted to have steroid-induced hyperglycemia. Will increase basal and sliding scale insulin dose. Continue Accucheck blood glucose monitoring. Diabetic diet. 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 Qualifiers: Respiratory failure complication: hypoxia Qualified Code(s): J96.11 - Chronic respiratory failure with hypoxia (5) CAD (coronary artery disease) Current Visit: Yes Status: Chronic Qualifiers: Coronary Disease-Associated Artery/Lesion type: [place] artery [place] vs. transplanted heart: [place] heart Associated angina: with unspecified angina Qualified Code(s): I25.119 - Atherosclerotic heart disease of [place] coronary artery with unspecified angina pectoris (6) CKD (chronic kidney disease) stage 3, GFR 30-59 ml/min Current Visit: Yes Status: Chronic Assessment and plan: creatinine stable; - Subjective Interval history: Feels better with improved shortness of breath; no wheezing, cough, chest pain; but does have baseline anxiety; - Constitutional Vitals: Temp Pulse Resp BP Pulse Ox 98.0 F 119 19 114/67 95 04/29/17 07:17 04/29/17 07:17 04/29/17 09:09 04/29/17 07:17 04/29/17 09:09 General appearance: Present: A&O X 3, answers questions appropriately - Respiratory Respiratory exam: Present: decreased breath sounds (decreased air entry B/L), CTAB. Absent: accessory muscle use, rales, rhonchi, wheezes - Cardiovascular Cardiovascular exam: Present: RRR, +S1, +S2, tachycardia. Absent: diastolic murmur, gallop, rubs, systolic murmur - GI/Abdominal GI/Abdominal exam: Present: normal bowel sounds, soft, no peritoneal signs. Absent: distended, tenderness - Extremities Exam Extremities exam: Present: full ROM, warm, radial pulses palpable and symmetrical. Absent: calf tenderness, cyanotic, pedal edema - Neurological Exam Neurological exam: Present: CN II-XII intact, oriented X3, no focal deficits. Absent: pronater drift, facial droop, speech deficit Internal Medicine: Result - Labs CBC & Chem 7: 04/29/17 05:10 04/29/17 05:10 Labs: Short CBC 04/29/17 Range/Units 05:10 WBC 16.2 H (4.3-11.1) K/mcL Hgb 12.0 (11.5-15.4) g/dL Hct 38.5 (35.3-44.9) % Plt Count 330 (140-400) K/mcL Neutrophils # 14.7 H (1.6-8.9) K/mcL BMP 04/29/17 05:10 Sodium 136 Potassium 5.1 H Chloride 100 Carbon Dioxide 27 BUN 12 Creatinine 1.15 H Glucose 384 H Calcium 9.2 Urine 04/28/17 Range/Units 11:00 Urine Color Yellow (Yellow) Urine Clarity Clear (Clear) Urine pH 6.5 (5.0-8.0) pH Units Ur Specific [place] 1.013 (1.010-1.025) Urine Protein Negative (Neg-Trace) mg/dL Urine Glucose (UA) >=1000 H (Normal) mg/dL - ABG Interpretation ABG results: PT/INR, D-dimer PT 10.6 Seconds (9.4-12.1) 04/27/17 22:04 Consult Discharge Plan - Plan Referrals: Lisa Brown CNP [Primary Care Provider] - 05/05/17 1:30 pm ()
[2017-04-29] MEDS: Ondansetron 4 MG/2 ML VIAL IVP PRN (14:40)
[2017-04-29] MEDS: Acetaminophen 325 MG TABLET PO PRN (14:40)
[2017-04-29] MEDS: Fluticasone Propionate Nasal 50 MCG/SPRAY BOTTLE NS SCH (17:15)
[2017-04-29] MEDS: MethylPREDNISolone 40 MG/ML VIAL IVP SCH ×2 (17:17→23:28)
[2017-04-29] MEDS ORDERED: Sennosides/Docusate Sodium TABLET PO PRN (19:29)
[2017-04-29] MEDS ORDERED: TOUJEO 300 UNIT/ML SQ SCH (21:00)
[2017-04-29] MEDS ORDERED: Insulin LISPRO 300 UNITS/3 ML VIAL SQ SCH (21:00)
[2017-04-29] MEDS ORDERED: Levofloxacin 750 MG/150 ML 750 MG/150 ML BAG IVPB SCH (23:00)
[2017-04-30] MEDS: Levalbuterol Neb 1.25 MG/3 ML IH SCH ×4 (00:27→13:32)
[2017-04-30] MEDS: Ipratropium Neb 0.5 MG NEBULIZER IH SCH ×4 (00:27→13:32)
[2017-04-30] MEDS: *HR* Heparin 5,000 UNIT/ML VIAL SQ SCH (05:12)
[2017-04-30 05:55] LABS: Basophils % 0.2 %; Hematocrit 37.3 % (35.3-44.9); Immature Granulocytes % 1.5 % (0-4); Lymphocytes # 1.1 K/mcL (0.6-4.6); Lymphocytes % 6.1 %; Mean Corpuscular HGB Conc 32.2 g/dL (31.6-35.5); Mean Corpuscular Hemoglobin 28.8 pg (28.0-33.3); Mean Corpuscular Volume 89.7 fL (83.0-100.0); Mean Platelet Volume 10.2 fL (9.4-12.4); Monocytes # 0.5 K/mcL (0.0-1.3); Monocytes % 2.9 %; Neutrophils # 16.3 K/mcL (1.6-8.9); Platelet Count 313 K/mcL (140-400); Red Blood Count 4.16 M/mcL (3.82-4.97); Segmented Neutrophils % 89.3 %
[2017-04-30 06:15] LABS: BUN/Creatinine Ratio 14 (6-26); Blood Urea Nitrogen 14 mg/dL (7-20); Calcium 9.3 mg/dL (8.6-10.8); Carbon Dioxide 29 mEq/L (19-29); Chloride 100 mEq/L (98-109); Glucose 318 mg/dL (70-99); Osmolality,Calculated 297 (280-300); Potassium 4.9 mEq/L (3.5-4.5); Sodium 137 mEq/L (136-145); eGFR For African Americans > 60 (> 60); eGFR For Non-African Americans 55 (> 60)
[2017-04-30] MEDS: Insulin LISPRO 300 UNITS/3 ML VIAL SQ SCH ×2 (08:02→12:15)
[2017-04-30] MEDS: MethylPREDNISolone 40 MG/ML VIAL IVP SCH (09:00)
[2017-04-30] MEDS: Aspirin Enteric Coated 81 MG Tablet PO SCH (09:00)
[2017-04-30] MEDS: Loratadine 10 MG TABLET PO SCH (09:01)
[2017-04-30] MEDS: Fluticasone Propionate Nasal 50 MCG/SPRAY BOTTLE NS SCH (09:02)
[2017-04-30] MEDS: (Aclidinium Bromide [Tudorza Pressair] 400 MCG) IH SCH (09:03)
[2017-04-30] MEDS: Multivit/Ca/Min/Fe/FA 1 TAB TABLET PO SCH (09:05)
[2017-04-30] MEDS: Ranolazine 500 MG TAB.ER.12H PO SCH (09:05)
[2017-04-30] MEDS: Cholecalciferol (D-3) 1,000 UNIT TABLET PO SCH (09:06)
[2017-04-30] MEDS: Budesonide/Formoterol 160/4.5 MDI IH SCH (09:15)
[2017-04-30] MEDS: Ondansetron 4 MG/2 ML VIAL IVP PRN (09:20)
[2017-04-30] MEDS: Simethicone 80 MG TAB.CHEW PO PRN ×2 (09:21→12:19)
[2017-04-30] MEDS ORDERED: MethylPREDNISolone 40 MG/ML VIAL IVP SCH (10:15)
[2017-04-30 11:38] VITALS: BP 144/94
--- NOTE | 2017-04-30 11:42 | Discharge Summary ---
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 transplanted heart: [place] heart Associated angina: with unspecified angina Qualified Code(s): I25.119 - Atherosclerotic heart disease of [place] coronary artery with unspecified angina pectoris (6) CKD (chronic kidney disease) stage 3, GFR 30-59 ml/min Priority: Secondary Status: Chronic - Discharge Medications Prescriptions: Escitalopram [Lexapro] 10 mg PO DAILY #30 tablet levoFLOXacin [Levaquin] 500 mg PO DAILY #7 tablet predniSONE [PredniSONE] 60 mg PO DAILY 18 Days tablet Home Medications: Aclidinium [place] [Tudorza Pressair] 400 mcg IH BID 04/18/15 [History] Aspirin [Adult Low Dose Aspirin EC] 81 mg PO DAILY 04/18/15 [History] Budesonide/Formoterol 160/4.5 [Symbicort 160/4.5] 2 puff IH BIDR 04/18/15 [ History] Buspirone HCl [Buspar] 15 mg PO HS 04/18/15 [History] Carvedilol [Coreg] 3.125 mg PO BIDWM 04/18/15 [History] Roflumilast [Daliresp] 500 mcg PO DAILY 04/18/15 [History] Simvastatin [Zocor] 20 mg PO DAILY 04/18/15 [History] Calcium Polycarbophil [Fibercon] 625 mg PO QID PRN 08/02/15 [History] Pantoprazole Sodium [Protonix] 40 mg PO DAILY 08/02/15 [History] Albuterol Sulfate [Ventolin Hfa] 18 gm IH Q4H PRN 03/26/16 [History] Insulin ASPART [Novolog Flexpen] 2 - 14 unit SQ TID 03/26/16 [History] Ipratropium/Albuterol Neb [Duoneb] 3 ml IH Q4-6H PRN 03/26/16 [History] Oxygen 2 - 3 each NS CONT 03/26/16 [History] Potassium Chloride [Klor-Con] 20 meq PO DAILY 03/26/16 [History] Nitroglycerin [Nitrostat] 0.4 mg SL Q5M PRN 06/27/16 [History] Ranolazine [Ranexa] 1,000 mg PO BID 06/27/16 [History] Rizatriptan Benzoate [Maxalt] 10 mg PO ONCE PRN 09/19/16 [History] Simethicone [Gas-X] 80 mg PO QID 09/19/16 [History] Insulin Glargine,Hum.rec.anlog [[place] Solostar] 36 unit SQ HS 04/28/17 [History ] Linagliptin [Tradjenta] 5 mg PO DAILY 04/28/17 [History] Promethazine [Phenergan] 12.5 mg PO Q8HR PRN 04/28/17 [History] Escitalopram [Lexapro] 10 mg PO DAILY #30 tablet 04/30/17 [Rx] Fluticasone Propionate Nasal [Flonase] 50 mcg NS DAILY bottle 04/30/17 [Rx] levoFLOXacin [Levaquin] 500 mg PO DAILY #7 tablet 04/30/17 [Rx] predniSONE [PredniSONE] 60 mg PO DAILY 18 Days tablet 04/30/17 [Rx] Allergies/Adverse Reactions: 3 Allergy/AdvReac Type Severity Reaction Status Date / Time atorvastatin [From Lipitor] Allergy Swelling Verified 04/28/17 13:05 of Lip/Tongue/Throat bupropion [From Wellbutrin] Allergy Swelling Verified 04/28/17 13:05 of Lip/Tongue/Throat glimepiride Allergy Swelling Verified 04/28/17 13:05 of Lip/Tongue/Throat isosorbide [From Imdur] Allergy Swelling Verified 04/28/17 13:05 of Lip/Tongue/Throat lurasidone [From Latuda] Allergy Swelling Verified 04/28/17 13:05 of Lip/Tongue/Throat metformin Allergy Swelling Verified 04/28/17 13:05 of Lip/Tongue/Throat metoclopramide [From Reglan] Allergy Swelling Verified 04/28/17 13:05 of Lip/Tongue/Throat Penicillins Allergy Anaphylaxis Verified 04/28/17 13:05 prednisone Allergy Swelling Verified 04/28/17 13:05 of Lip/Tongue/Throat aspirin AdvReac Nausea Verified 04/28/17 13:05 clopidogrel [From Plavix] AdvReac Swelling Verified 04/28/17 13:05 of Lip/Tongue/Throat codeine AdvReac Nausea Verified 04/28/17 13:05 fluticasone AdvReac Swelling Verified 04/28/17 13:05 [From Advair Diskus] of Lip/Tongue/Throat hydrocodone [From [place]] AdvReac Swelling Verified 04/28/17 13:05 of Lip/Tongue/Throat Pertussis Vaccine,Adsorbed AdvReac Swelling Verified 04/28/17 13:05 of Lip/Tongue/Throat risperidone AdvReac Swelling Verified 04/28/17 13:05 of Lip/Tongue/Throat salmeterol AdvReac Swelling Verified 04/28/17 13:05 [From Advair Diskus] of Lip/Tongue/Throat tiotropium AdvReac Swelling Verified 04/28/17 13:05 [From Spiriva with of HandiHaler] Lip/Tongue/Throat venom-honey bee AdvReac Swelling Verified 04/28/17 13:05 [bee venom (honey bee)] of Lip/Tongue/Throat Date of admission: 04/28/17 00:11 Primary care physician: Lisa Brown, Consults: 04/30/17 10:32 Consult to Occupational Therapy [CONS] Routine Comment: Evaluate, develop and implement POC Reason for Consult: Generalized weakness, severe COPD Consult to Physical Therapy [CONS] Routine Comment: Evaluate, develop and implement POC Reason for Consult: Generalized weakness, severe COPD Discharging clinician: Laney Bahena Anticipated date of discharge: 04/30/17 - Patient Status Disposition: Home Health Service Condition: Fair Functional capacity at discharge: uses cane/walker Overall status at discharge: patient is progressing back to baseline - Discharge Instructions Instructions: Prednisone (By mouth), Levofloxacin (By mouth), Escitalopram (By mouth), Chronic Obstructive Pulmonary Disease (DC) Follow Up With: Lisa Brown CNP [Primary Care Provider] - 05/05/17 1:30 pm () Additional Instructions: F/up with Pulmonology as scheduled F/up with sleep study as scheduled - Diet and Activity Activity: as per physical therapy, wear oxygen at all times Diet: diabetic diet, low fat, low cholesterol, low salt diet, other (renal diet) Hospital course: Ms. Gomez is a 61 year old female with the above medical problems was admitted with worsening cough, shortness of breath and wheezing. She was noted to have an acute exacerbation of severe COPD. She was started on IV steroids, empiric IV antibiotics, supplemental oxygen and BiPAP support. She gradually improved on this regimen. BiPAP qualification study was done but patient did not qualify. She does have outpatient sleep study scheduled this month and she is encouraged to keep her appointment. Patient is noted to have severe end-stage COPD and she would probably need to be on chronic low-dose steroids. She is currently medically stable for discharge on oral antibiotics and steroids and is encouraged to keep her appointment with pulmonology. She is also noted to have anxiety and depression and was supposed to be on Lexapro and Atarax, however her psychiatric status has moved and she is unable to find a new provider. She is being discharged on Lexapro and is encouraged to follow up with psychiatry for further psychotropic medications. - Time Spent with Patient Total time spent providing and/or coordinating discharge services: Greater than 30 minutes (45 min) - Constitutional Vitals: Temp Pulse Resp BP Pulse Ox 98.3 F 95 20 142/86 94 04/30/17 07:39 04/30/17 11:14 04/30/17 11:14 04/30/17 07:39 04/30/17 11:14 General appearance: Present: A&O X 3, answers questions appropriately - Respiratory Respiratory exam: Present: CTAB. Absent: accessory muscle use, rales, rhonchi, wheezes
--- NOTE | 2017-04-30 14:38 | Physician Discharge Referral ---
Home Health/Hosp Referral Info Transfer to: Home Health Attending Provider: Laney Bahena Provider in Charge Post Discharge: PCP - Diagnosis (1) Leukocytosis Priority: Primary Status: Acute (2) COPD with exacerbation Priority: Primary Status: Acute (3) Diabetes Priority: Secondary Status: Chronic (4) Chronic respiratory failure Priority: Secondary Status: Chronic (5) CAD (coronary artery disease) Priority: Secondary Status: Chronic (6) CKD (chronic kidney disease) stage 3, GFR 30-59 ml/min Priority: Secondary Status: Chronic - Respiratory Orders Oxygen / L per min (3.5L/min via [place]) Smoking Cessation: Smoking cessation has been advised. For more information, call the [place] Quit Line at [phone]-PYZY-NOW. - Diet/Nutrition Diet/Nutrition Orders: No Added Salt (ANNIE), Renal, Cardiac, No Concentrated Sweets (diabetic) - Activity Activity Orders: Ambulate - Services Needed Following services are medically necessary services: Nursing, Physical Therapy, Occupational Therapy - Transfer Medications Prescriptions: Escitalopram [Lexapro] 10 mg PO DAILY #30 tablet levoFLOXacin [Levaquin] 500 mg PO DAILY #7 tablet predniSONE [PredniSONE] 60 mg PO DAILY 18 Days tablet Home Medications: Aclidinium [place] [Tudorza Pressair] 400 mcg IH BID 04/18/15 [History] Aspirin [Adult Low Dose Aspirin EC] 81 mg PO DAILY 04/18/15 [History] Budesonide/Formoterol 160/4.5 [Symbicort 160/4.5] 2 puff IH BIDR 04/18/15 [ History] Buspirone HCl [Buspar] 15 mg PO HS 04/18/15 [History] Carvedilol [Coreg] 3.125 mg PO BIDWM 04/18/15 [History] Roflumilast [Daliresp] 500 mcg PO DAILY 04/18/15 [History] Simvastatin [Zocor] 20 mg PO DAILY 04/18/15 [History] Calcium Polycarbophil [Fibercon] 625 mg PO QID PRN 08/02/15 [History] Pantoprazole Sodium [Protonix] 40 mg PO DAILY 08/02/15 [History] Albuterol Sulfate [Ventolin Hfa] 18 gm IH Q4H PRN 03/26/16 [History] Insulin ASPART [Novolog Flexpen] 2 - 14 unit SQ TID 03/26/16 [History] Ipratropium/Albuterol Neb [Duoneb] 3 ml IH Q4-6H PRN 03/26/16 [History] Oxygen 2 - 3 each NS CONT 03/26/16 [History] Potassium Chloride [Klor-Con] 20 meq PO DAILY 03/26/16 [History] Nitroglycerin [Nitrostat] 0.4 mg SL Q5M PRN 06/27/16 [History] Ranolazine [Ranexa] 1,000 mg PO BID 06/27/16 [History] Rizatriptan Benzoate [Maxalt] 10 mg PO ONCE PRN 09/19/16 [History] Simethicone [Gas-X] 80 mg PO QID 09/19/16 [History] Insulin Glargine,Hum.rec.anlog [T[place]y Solostar] 36 unit SQ HS 04/28/17 [History ] Linagliptin [Tradjenta] 5 mg PO DAILY 04/28/17 [History] Promethazine [Phenergan] 12.5 mg PO Q8HR PRN 04/28/17 [History] Escitalopram [Lexapro] 10 mg PO DAILY #30 tablet 04/30/17 [Rx] Fluticasone Propionate Nasal [Flonase] 50 mcg NS DAILY bottle 04/30/17 [Rx] levoFLOXacin [Levaquin] 500 mg PO DAILY #7 tablet 04/30/17 [Rx] predniSONE [PredniSONE] 60 mg PO DAILY 18 Days tablet 04/30/17 [Rx] Allergies/Adverse Reactions: 3 Allergy/AdvReac Type Severity Reaction Status Date / Time atorvastatin [From Lipitor] Allergy Swelling Verified 04/28/17 13:05 of Lip/Tongue/Throat bupropion [From Wellbutrin] Allergy Swelling Verified 04/28/17 13:05 of Lip/Tongue/Throat glimepiride Allergy Swelling Verified 04/28/17 13:05 of Lip/Tongue/Throat isosorbide [From Imdur] Allergy Swelling Verified 04/28/17 13:05 of Lip/Tongue/Throat lurasidone [From Latuda] Allergy Swelling Verified 04/28/17 13:05 of Lip/Tongue/Throat metformin Allergy Swelling Verified 04/28/17 13:05 of Lip/Tongue/Throat metoclopramide [From Reglan] Allergy Swelling Verified 04/28/17 13:05 of Lip/Tongue/Throat Penicillins Allergy Anaphylaxis Verified 04/28/17 13:05 prednisone Allergy Swelling Verified 04/28/17 13:05 of Lip/Tongue/Throat aspirin AdvReac Nausea Verified 04/28/17 13:05 clopidogrel [From Plavix] AdvReac Swelling Verified 04/28/17 13:05 of Lip/Tongue/Throat codeine AdvReac Nausea Verified 04/28/17 13:05 fluticasone AdvReac Swelling Verified 04/28/17 13:05 [From Advair Diskus] of Lip/Tongue/Throat hydrocodone [From [place]] AdvReac Swelling Verified 04/28/17 13:05 of Lip/Tongue/Throat Pertussis Vaccine,Adsorbed AdvReac Swelling Verified 04/28/17 13:05 of Lip/Tongue/Throat risperidone AdvReac Swelling Verified 04/28/17 13:05 of Lip/Tongue/Throat salmeterol AdvReac Swelling Verified 04/28/17 13:05 [From Advair Diskus] of Lip/Tongue/Throat tiotropium AdvReac Swelling Verified 04/28/17 13:05 [From Spiriva with of HandiHaler] Lip/Tongue/Throat venom-honey bee AdvReac Swelling Verified 04/28/17 13:05 [bee venom (honey bee)] of Lip/Tongue/Throat Certification: Further, I certify that my clinical findings support that this patient is homebound (i.e. absences from home require considerable and taxing effort and are for medical reasons or confucianism services or infrequently or short duration when for other reasons) because: Homebound Reason: Patient requires assistance of a person or device to safely leave home, Leaving home requires considerable and taxing effort due to condition, Severity of cardiac or pulmonary status limits activity tolerance Attestation: My signature below is to certify that this patient is under my care and that I, or nurse practitioner, or a physician's bankruptcy legal assistant working with me, has a face-to -face encounter with this patient.
[2017-04-30] MEDS ORDERED: FLUARIX QUAD 2017-18 36MOS UP/PF 0.5 ML SYRINGE IM ONE (15:03)
== END 2017-04-30 15:16 | disposition home health service (06) | DRG 190 ==
LOC: 2NNU 21:21 → EMEROO 21:21 → SUATTDRO 04-28 00:11 → 2NNU 04-28 00:30
PROVIDERS: ADMIT Family Medicine; ATTEND Internal Medicine

== ENCOUNTER 2017-08-30 16:05 | Inpatient (IN) ==
--- NOTE | 2017-08-30 16:28 | Emergency Department Note ---
Disposition Clinical Impression: Generalized abdominal pain, Partial small bowel obstruction Nausea and vomiting Qualifiers: Vomiting type: unspecified Vomiting Intractability: unspecified Qualified Code( s): R11.2 - Nausea with vomiting, unspecified Diarrhea Qualifiers: Diarrhea type: unspecified type Qualified Code(s): R19.7 - Diarrhea, unspecified UTI (urinary tract infection) Qualifiers: Urinary tract infection type: acute cystitis Hematuria presence: with hematuria Qualified Code(s): N30.01 - Acute cystitis with hematuria Disposition: Admitted As Inpatient Condition: Fair Referrals: Lisa Brown FIELD SERVICE SUPERVISOR [Primary Care Provider] - Forms: ED Satisfaction Letter Time of Disposition: 19:51 Nausea/Vomiting/Diarrhea HPI - General Chief complaint: ED Nausea/Vomiting/Diarrhea Stated complaint: flu/N/V/D Time Seen by Provider: 08/30/17 16:23 Source: patient, EMS Mode of arrival: ambulatory Limitations: no limitations Nursing Notes Reviewed: Yes Vital Signs Reviewed: Yes - History of Present Illness HPI Narrative: Patient is a 62-year-old female with past medical history of COPD, CAD, hypertension, hyperlipidemia, renal disease. She presents today due to nausea, vomiting, diarrhea, abdominal pain for the past 10 days. She is concerned that she has the flu. She states that she has not been able to keep any liquid or medications down for the past 5 days. She states that she rarely leaves the house and cannot think of any sick contacts that she would have. Denies chest pain, denies any shortness of breath above her baseline. Although, patient is very dyspneic, conversationally dyspneic throughout the entire encounter. Denies any blood in stool, dysuria, hematuria. - Related Data Home Medications Medication Instructions Recorded Confirmed Aclidinium Gabriels [Tudorza 400 mcg IH BID 04/18/15 04/28/17 Pressair] Aspirin [Adult Low Dose Aspirin EC] 81 mg PO DAILY 04/18/15 04/28/17 Budesonide/Formoterol 160/4.5 2 puff IH BIDR 04/18/15 04/28/17 [Symbicort 160/4.5] Buspirone HCl [Buspar] 15 mg PO HS 04/18/15 04/28/17 Carvedilol [Coreg] 3.125 mg PO BIDWM 04/18/15 04/28/17 Roflumilast [Daliresp] 500 mcg PO DAILY 04/18/15 04/28/17 Simvastatin [Zocor] 20 mg PO DAILY 04/18/15 04/28/17 Calcium Polycarbophil [Fibercon] 625 mg PO QID PRN 08/02/15 04/28/17 Pantoprazole Sodium [Protonix] 40 mg PO DAILY 08/02/15 04/28/17 Albuterol Sulfate [Ventolin Hfa] 18 gm IH Q4H PRN 03/26/16 04/28/17 Insulin ASPART [Novolog Flexpen] 2 - 14 unit SQ TID 03/26/16 04/28/17 Ipratropium/Albuterol Neb [Duoneb] 3 ml IH Q4-6H PRN 03/26/16 04/28/17 Oxygen 2 - 3 each NS CONT 03/26/16 04/28/17 Potassium Chloride [Klor-Con] 20 meq PO DAILY 03/26/16 04/28/17 Nitroglycerin [Nitrostat] 0.4 mg SL Q5M PRN 06/27/16 04/28/17 Ranolazine [Ranexa] 1,000 mg PO BID 06/27/16 04/28/17 Rizatriptan Benzoate [Maxalt] 10 mg PO ONCE PRN 09/19/16 04/28/17 Simethicone [Gas-X] 80 mg PO QID 09/19/16 04/28/17 Insulin Glargine,Hum.rec.anlog 36 unit SQ HS 04/28/17 04/28/17 [Milly Siddiqi] Linagliptin [Tradjenta] 5 mg PO DAILY 04/28/17 04/28/17 Promethazine [Phenergan] 12.5 mg PO Q8HR PRN 04/28/17 04/28/17 Previous Rx's Medication Instructions Recorded Escitalopram [Lexapro] 10 mg PO DAILY #30 tablet 04/30/17 Fluticasone Propionate Nasal 50 mcg NS DAILY bottle 04/30/17 [Flonase] levoFLOXacin [Levaquin] 500 mg PO DAILY #7 tablet 04/30/17 predniSONE [PredniSONE] 60 mg PO DAILY 18 Days tablet 04/30/17 Levofloxacin [Levaquin] 750 mg PO DAILY #7 tablet 05/22/17 Meloxicam 7.5 mg PO BID #20 tablet 05/22/17 PredniSONE [Deltasone] 60 mg PO DAILY #7 tablet 05/22/17 Allergies Allergy/AdvReac Type Severity Reaction Status Date / Time atorvastatin [From Lipitor] Allergy Swelling Verified 05/22/17 12:15 of Lip/Tongue/Throat bupropion [From Wellbutrin] Allergy Swelling Verified 05/22/17 12:15 of Lip/Tongue/Throat glimepiride Allergy Swelling Verified 05/22/17 12:15 of Lip/Tongue/Throat isosorbide [From Imdur] Allergy Swelling Verified 05/22/17 12:15 of Lip/Tongue/Throat lurasidone [From Latuda] Allergy Swelling Verified 05/22/17 12:15 of Lip/Tongue/Throat metformin Allergy Swelling Verified 05/22/17 12:15 of Lip/Tongue/Throat metoclopramide [From Reglan] Allergy Swelling Verified 05/22/17 12:15 of Lip/Tongue/Throat Penicillins Allergy Anaphylaxis Verified 05/22/17 12:15 prednisone Allergy Swelling Verified 05/22/17 12:15 of Lip/Tongue/Throat aspirin AdvReac Nausea Verified 05/22/17 12:15 clopidogrel [From Plavix] AdvReac Swelling Verified 05/22/17 12:15 of Lip/Tongue/Throat codeine AdvReac Nausea Verified 05/22/17 12:15 fluticasone AdvReac Swelling Verified 05/22/17 12:15 [From Advair Diskus] of Lip/Tongue/Throat hydrocodone [From [place]] AdvReac Swelling Verified 05/22/17 12:15 of Lip/Tongue/Throat Pertussis Vaccine,Adsorbed AdvReac Swelling Verified 05/22/17 12:15 of Lip/Tongue/Throat risperidone AdvReac Swelling Verified 05/22/17 12:15 of Lip/Tongue/Throat salmeterol AdvReac Swelling Verified 05/22/17 12:15 [From Advair Diskus] of Lip/Tongue/Throat tiotropium AdvReac Swelling Verified 05/22/17 12:15 [From Spiriva with of HandiHaler] Lip/Tongue/Throat venom-honey bee AdvReac Swelling Verified 05/22/17 12:15 [bee venom (honey bee)] of Lip/Tongue/Throat All systems ED: reviewed and negative except as stated. Constitutional: Denies: fever Cardiovascular: Denies: chest pain Respiratory: Denies: dyspnea Gastrointestinal: Reports: abdominal pain, nausea, vomiting, diarrhea. Denies: constipation, hematemesis, melena, hematochezia Genitourinary: Denies: urgency, dysuria, frequency, hematuria Neurological: Denies: weakness, numbness, paresthesias Past Medical History - Past Medical History Attestation: Yes The following information was validated with the patient. Source: patient Medical history: Reports: cardiomyopathy, COPD, coronary artery disease, diabetes, GERD, migraine, myocardial infarction, osteoporosis, renal disease, thyroid disease, other Surgical history: Reports: appendectomy, cataract, cholecystectomy, knee replacement (right), orthopedic, other (right carpal tunnel), ANTON/BSO Psychiatric history: Reports: anxiety, bipolar, depression, panic disorder, PTSD - Social History Smoking Status: Former smoker Smokeless Tobacco Status: No Alcohol use: Reports: rarely Drug use: Reports: none Physical Exam - General Limitations: no limitations General appearance: alert - Head Head exam: atraumatic, normocephalic, normal inspection - Eye Eye exam: Present: normal appearance, PERRL, EOMI - ENT ENT exam: normal exam, normal oropharynx, mucous membranes moist - Neck Neck exam: Present: normal inspection, full ROM, trachea midline - Chest Chest inspection: Present: normal inspection, symmetric chest wall rise - Respiratory Respiratory exam: Present: other (Conversationally dyspneic during exam, patient states that this is baseline for her. Diminished aeration throughout all lung [place]. No overt wheezes.). Absent: wheezes, stridor - Cardiovascular Cardiovascular exam: Present: normal rhythm, tachycardia, normal heart sounds - Abdominal Exam Abdominal exam: Present: soft, tenderness (Generalized abdominal tenderness). Absent: distention, guarding, rebound, rigidity, Tran's sign, tenderness at McBurney's Point - Extremities Exam Extremities exam: Present: normal inspection, full ROM. Absent: tenderness, pedal edema - Neurological Exam Neurological exam: Present: alert, oriented X3 - Psychiatric Psychiatric exam: Present: normal affect, normal mood - Skin Skin exam: Present: warm, dry, intact, normal color Course Course Narrative: Patient history, tachycardic. She is complaining of nausea, vomiting, diarrhea , generalized abdominal pain for the past 10 days. Physical exam shows a patient that is conversationally dyspneic. Otherwise, lungs were clear without any wheezes but do show decreased aeration throughout. Patient states that this is baseline for her. Abdomen exam shows generalized abdominal tenderness, otherwise soft with negative Tran's and negative McBurney sign. Patient reports multiple drug allergies. She states that she is okay with Phenergan for nausea, fentanyl for pain control. Will give these medications along with performing basic abdominal labs including LFTs and lipase. We will give the patient normal saline bolus as well. We will scan abdomen and pelvis for further assessment for generalized abdominal pain and nausea and vomiting. Likely viral gastroenteritis in nature. 19:39 patient has a partial small bowel obstruction. I talked with surgery, Dr. Mixon, and he stated that if nausea and vomiting and diarrhea had stopped, he was fine with NPO diet for now without injury exertion. He will see the patient in the morning as a consult. Patient also has signs of elevated white blood cell count and UTI. We will treat with ceftriaxone. Patient tolerated this medication the past. Will start maintenance fluids and admit to the hospitalist for further care. Vital Signs Temperature 98.2 F 08/30/17 16:16 Pulse Rate 127 08/30/17 16:16 Respiratory Rate 20 08/30/17 16:16 Blood Pressure 114/84 08/30/17 16:16 O2 Sat by Pulse Oximetry 97 08/30/17 16:16 Temperature 98.2 F 08/30/17 16:16 Pulse Rate 127 08/30/17 16:16 Respiratory Rate 20 08/30/17 16:16 Blood Pressure 114/84 08/30/17 16:16 O2 Sat by Pulse Oximetry 97 08/30/17 16:16 Oxygen Delivery Oxygen Delivery Nasal Cannula Nausea/Vomiting/Diarrhea - MDM Narrative Medical decision making narrative: Patient history, tachycardic. She is complaining of nausea, vomiting, diarrhea , generalized abdominal pain for the past 10 days. Physical exam shows a patient that is conversationally dyspneic. Otherwise, lungs were clear without any wheezes but do show decreased aeration throughout. Patient states that this is baseline for her. Abdomen exam shows generalized abdominal tenderness, otherwise soft with negative Tran's and negative McBurney sign. Patient reports multiple drug allergies. She states that she is okay with Phenergan for nausea, fentanyl for pain control. Will give these medications along with performing basic abdominal labs including LFTs and lipase. We will give the patient normal saline bolus as well. We will scan abdomen and pelvis for further assessment for generalized abdominal pain and nausea and vomiting. Likely viral gastroenteritis in nature. 19:39 patient has a partial small bowel obstruction. I talked with surgery, Dr. Mixon, and he stated that if nausea and vomiting and diarrhea had stopped, he was fine with NPO diet for now without injury exertion. He will see the patient in the morning as a consult. Patient also has signs of elevated white blood cell count and UTI. We will treat with ceftriaxone. Patient tolerated this medication the past. Will start maintenance fluids and admit to the hospitalist for further care. - Medical Records Medical records reviewed: Yes I reviewed the patient's medical records. - Lab Data Lab results reviewed: Yes I reviewed the patient's lab results. Result diagrams: 08/30/17 17:19 08/30/17 17:19 Lab Results 08/30/17 08/30/17 08/30/17 Range/Units 16:55 17:19 17:19 WBC 16.1 H (4.3-11.1) K/mcL RBC 5.58 H (3.82-4.97) M/mcL Hgb 15.7 H (11.5-15.4) g/dL Hct 48.1 H (35.3-44.9) % MCV 86.2 (83.0-100.0) fL MCH 28.1 (28.0-33.3) pg MCHC 32.6 (31.6-35.5) g/dL RDW 14.2 (11.5-14.5) % Plt Count 435 H (140-400) K/mcL MPV 10.1 (9.4-12.4) fL Immature Gran % 0.7 (0-4) % Seg Neutrophils % 78.1 % Lymphocytes % 16.5 % Monocytes % 4.4 % Eosinophils % 0.1 % Basophils % 0.2 % Neutrophils # 12.5 H (1.6-8.9) K/mcL Lymphocytes # 2.7 (0.6-4.6) K/mcL Monocytes # 0.7 (0.0-1.3) K/mcL Eosinophils # 0.0 (0.0-0.6) K/mcL Basophils # 0.0 (0.0-0.2) K/mcL Sodium 137 (136-145) mEq/L Potassium 4.0 (3.5-5.1) mEq/L Chloride 98 (98-107) mEq/L Carbon Dioxide 31 H (23-29) mEq/L BUN 11 (8-23) mg/dL Creatinine 0.94 (0.60-1.20) mg/dL Est GFR ( Amer) > 60 (> 60) Est GFR (Non-Af Amer) 60 (> 60) BUN/Creatinine Ratio 12 (6-26) Glucose 186 H (70-105) mg/dL Calculated Osmolality 288 (280-300) Calcium 9.9 (8.6-10.3) mg/dL Total Bilirubin 0.5 (0.3-1.0) mg/dL AST 15 (13-39) Units/L ALT 11 (7-52) Units/L Alkaline Phosphatase 63 (34-104) Units/L Troponin I (< 0.04) ng/mL B-Natriuretic Peptide (Less than 100) pg/mL Serum Total Protein 6.7 (6.4-8.9) g/dL Albumin 3.7 (3.5-5.7) g/dL Globulin 3.0 (2.4-3.5) g/dL Albumin/Globulin Ratio 1.2 (1.1-2.2) Lipase 11 (11-82) Units/L Urine Color Red A (Yellow) Urine Clarity Turbid A (Clear) Urine pH 5.5 (5.0-8.0) pH Units Ur Specific Arley > 1.030 H (1.010-1.025) Urine Protein 30 H (Neg-Trace) mg/dL Urine Glucose (UA) Normal (Normal) mg/dL Urine Ketones Negative (Negative) mg/dL Urine Blood Negative (Negative) Urine Nitrite Negative (Negative) Urine Bilirubin Small H (Negative) Urine Urobilinogen Normal (Normal) mg/dL Ur Leukocyte Esterase Moderate H (Negative) Urine Microscopic RBC 0-3 (0-3) per hpf Urine Microscopic WBC 50-100 H (0-3) per hpf Ur Squamous Epith Cells Many H (None-Few) per lpf Calcium Oxalate Crystal Present Urine Bacteria Few (None-Few) per hpf Hyaline Casts Few (None-Few) per lpf Ur Culture Indicated? NO. (NO) 08/30/17 08/30/17 Range/Units 17:19 17:19 WBC (4.3-11.1) K/mcL RBC (3.82-4.97) M/mcL Hgb (11.5-15.4) g/dL Hct (35.3-44.9) % MCV (83.0-100.0) fL MCH (28.0-33.3) pg MCHC (31.6-35.5) g/dL RDW (11.5-14.5) % Plt Count (140-400) K/mcL MPV (9.4-12.4) fL Immature Gran % (0-4) % Seg Neutrophils % % Lymphocytes % % Monocytes % % Eosinophils % % Basophils % % Neutrophils # (1.6-8.9) K/mcL Lymphocytes # (0.6-4.6) K/mcL Monocytes # (0.0-1.3) K/mcL Eosinophils # (0.0-0.6) K/mcL Basophils # (0.0-0.2) K/mcL Sodium (136-145) mEq/L Potassium (3.5-5.1) mEq/L Chloride (98-107) mEq/L Carbon Dioxide (23-29) mEq/L BUN (8-23) mg/dL Creatinine (0.60-1.20) mg/dL Est GFR ( Amer) (> 60) Est GFR (Non-Af Amer) (> 60) BUN/Creatinine Ratio (6-26) Glucose (70-105) mg/dL Calculated Osmolality (280-300) Calcium (8.6-10.3) mg/dL Total Bilirubin (0.3-1.0) mg/dL AST (13-39) Units/L ALT (7-52) Units/L Alkaline Phosphatase (34-104) Units/L Troponin I < 0.03 (< 0.04) ng/mL B-Natriuretic Peptide 38 (Less than 100) pg/mL Serum Total Protein (6.4-8.9) g/dL Albumin (3.5-5.7) g/dL Globulin (2.4-3.5) g/dL Albumin/Globulin Ratio (1.1-2.2) Lipase (11-82) Units/L Urine Color (Yellow) Urine Clarity (Clear) Urine pH (5.0-8.0) pH Units Ur Specific Arley (1.010-1.025) Urine Protein (Neg-Trace) mg/dL Urine Glucose (UA) (Normal) mg/dL Urine Ketones (Negative) mg/dL Urine Blood (Negative) Urine Nitrite (Negative) Urine Bilirubin (Negative) Urine Urobilinogen (Normal) mg/dL Ur Leukocyte Esterase (Negative) Urine Microscopic RBC (0-3) per hpf Urine Microscopic WBC (0-3) per hpf Ur Squamous Epith Cells (None-Few) per lpf Calcium Oxalate Crystal Urine Bacteria (None-Few) per hpf Hyaline Casts (None-Few) per lpf Ur Culture Indicated? (NO) - Radiology Data Radiology results reviewed: Yes I reviewed the patient's radiology results. - EKG Data EKG attestation: Yes I reviewed and interpreted this EKG. EKG results narrative: 08/30/2017 at 16:41. Sinus tachycardia. Rate 127. HI 100. QRS 78. QTC 380. Normal axis. ST depression in lead V3. Otherwise, no ST elevation at this time. S.B.A.R. - S.B.A.R. Situation: Demographics, MOA Background: Presenting Complaint, Relevant PMH, Meds, & Allergies Assessment: Vital Signs, Course and respsone to treatment, Exam Concerns, Patient/Family Expectation, Pertinant Lab Results, Outstanding Labs Recommendation: Barrier(s) to disposition, Recommendation based on pending studies, treatments, or consults S.B.A.R. Report Given to: Dr. Emilio Flores Repor Time: 19:50 Attestation Statement - Attestation Attestation: I examined this patient and my medical decision-making was reviewed with the Resident Physician. I agree with the documented findings, disposition and treatment plan as described except to the extent set forth below. Findings consistent with small bowel obstruction. Discussed case with surgery. We will start ceftriaxone for urinary tract infection. The patient will be admitted for further evaluation.
[2017-08-30] MEDS ORDERED: 0.9 % Sodium Chloride 1,000 ML IVC ONE (16:41)
[2017-08-30] MEDS ORDERED: *HR* Promethazine 25 MG/ML VIAL IVP ONE (16:42)
[2017-08-30] MEDS ORDERED: *HR* FentaNYL (PF) 100 MCG/2 ML VIAL IVP ONE (17:01)
[2017-08-30 17:06] LABS: Bilirubin,Urine Small (Negative); Blood,Urine Negative (Negative); Clarity,Urine Turbid (Clear); Color,Urine Red (Yellow); Glucose,Urine (UA) Normal (Normal); Ketones,Urine Negative (Negative); Leukocyte Esterase,Urine Moderate (Negative); Nitrite,Urine Negative (Negative); PH,Urine 5.5 pH Units (5.0-8.0); Protein,Urine 30 mg/dL (Neg-Trace); Specific Gravity,Urine > 1.030 (1.010-1.025); Urobilinogen,Urine Normal (Normal)
[2017-08-30 17:10] LABS: Bacteria,Urine Few per hpf (None-Few); Squamous Epithelial Cell,Urine Many per lpf (None-Few); WBC,Urine 50-100 per hpf (0-3)
[2017-08-30 17:30] LABS: Basophils % 0.2 %; Eosinophils % 0.1 %; Hematocrit 48.1 % (35.3-44.9); Hemoglobin 15.7 g/dL (11.5-15.4); Immature Granulocytes % 0.7 % (0-4); Lymphocytes # 2.7 K/mcL (0.6-4.6); Lymphocytes % 16.5 %; Mean Corpuscular HGB Conc 32.6 g/dL (31.6-35.5); Mean Corpuscular Hemoglobin 28.1 pg (28.0-33.3); Mean Corpuscular Volume 86.2 fL (83.0-100.0); Mean Platelet Volume 10.1 fL (9.4-12.4); Monocytes # 0.7 K/mcL (0.0-1.3); Monocytes % 4.4 %; Neutrophils # 12.5 K/mcL (1.6-8.9); Platelet Count 435 K/mcL (140-400); Red Blood Count 5.58 M/mcL (3.82-4.97); Red Cell Distribution Width 14.2 % (11.5-14.5); Segmented Neutrophils % 78.1 %
[2017-08-30 17:37] LABS: Calcium Oxalate Crystals,Urine Present; Hyaline Casts,Urine Few per lpf (None-Few); RBC,Urine 0-3 per hpf (0-3)
[2017-08-30 18:26] LABS: Alanine Aminotransferase 11 Units/L (7-52); Albumin 3.7 g/dL (3.5-5.7); Albumin/Globulin Ratio 1.2 (1.1-2.2); Alkaline Phosphatase 63 Units/L (34-104); Aspartate Amino Transferase 15 Units/L (13-39); BUN/Creatinine Ratio 12 (6-26); Bilirubin,Total 0.5 mg/dL (0.3-1.0); Blood Urea Nitrogen 11 mg/dL (8-23); Calcium 9.9 mg/dL (8.6-10.3); Carbon Dioxide 31 mEq/L (23-29); Chloride 98 mEq/L (98-107); Glucose 186 mg/dL (70-105); Lipase 11 Units/L (11-82); Osmolality,Calculated 288 (280-300); Sodium 137 mEq/L (136-145); Total Protein 6.7 g/dL (6.4-8.9); eGFR For African Americans > 60 (> 60); eGFR For Non-African Americans 60 (> 60)
[2017-08-30] MEDS ORDERED: 0.9 % Sodium Chloride 1,000 ML IVC SCH (19:45)
[2017-08-30] MEDS ORDERED: cefTRIAXone 2,000 MG in Water for inj. (sterile) 20 ML 20 ML IVP ONE (19:45)
[2017-08-30] MEDS ORDERED: Naloxone 0.4 MG/ML INJ IVP PRN (21:14)
[2017-08-30] MEDS ORDERED: D5% in Water 1,000 ML IVC PRN (21:17)
[2017-08-30] MEDS ORDERED: *HR* Dextrose 50 % in Water (Syg) 50 ML SYRINGE IVP PRN (21:17)
[2017-08-30] MEDS ORDERED: Dextrose Gel 15 GM/37.5 ML TUBE PO PRN ×2 (21:17)
[2017-08-30] MEDS ORDERED: Levalbuterol Neb 1.25 MG/3 ML IH PRN (21:18)
[2017-08-30] MEDS ORDERED: methylPREDNISolone 125 MG/2 ML VIAL IVP ONE (21:21)
[2017-08-30] MEDS ORDERED: Ketorolac 15 MG/ML VIAL IVP PRN (21:29)
--- NOTE | 2017-08-30 21:33 | Internal Med History&Physical ---
Date of Encounter: 08/30/17 Time of Encounter: 20:30 Assessment and Plan (1) Diarrhea Current visit: Yes Status: Acute Pt has severe diarrhea for 10 days. Consider colitis, etiology undetermined. - GI penal. - Cipro and flagyl at this point - IVF, f/u BMP and correct electrolyte abnormality. Qualifiers: Diarrhea type: unspecified type Qualified Code(s): R19.7 - Diarrhea, unspecified (2) Partial small bowel obstruction Current visit: Yes Status: Acute CT shows SBO. Pt has abd distention, hyperactive bowel sound. Hx of cholecystecomy and hysterectomy. - Consider mechanical SBO, possibly due to previous surgery - Keep NPO, IVF - Surgical consult - Phenergan for nausea (3) UTI (urinary tract infection) Current visit: Yes Status: Acute Pt is on cipro iv. F/U urine culture Qualifiers: Urinary tract infection type: acute cystitis Hematuria presence: without hematuria Qualified Code(s): N30.00 - Acute cystitis without hematuria (4) Acute exacerbation of chronic obstructive airways disease Current visit: No Status: Acute Pt has respiratory distress and wheezing, hx of COPD, consider COPD exacerbation - Flu test - Solumendral 125mg iv once followed by 60mg q8h - Xopenex IH - Pt use home Oxygen and home BiPAP, will cont. (5) DVT prophylaxis Current visit: No Status: Acute heparin sc (6) Diabetes Current visit: No Status: Chronic Cont basal and SS insulin Qualifiers: Diabetes mellitus type: type 2 Diabetes mellitus complication status: with hyperglycemia Diabetes mellitus nursing home insulin use: with nursing home use Qualified Code(s): E11.65 - Type 2 diabetes mellitus with hyperglycemia; Z79.4 - jail (current) use of insulin Internal Medicine - H&P: HPI Chief complaint: Nausea/vomiting/diarrhea Admitted From: Home Plans for Post Hospital Care: Home History of present illness: Ms. Gomez is a 62 year old female with Hx of COPD, DM, present to ER for nausea/vomiting/diarrhea for 10 days. Pt also c/o abd pain 9/10 all around the belly. Pt said she vomited 3 times today, vomiting is stomach content, no blood. Pt has watery diarrhea, 6 time in last 3 hours, no blood in it. Pt has severe COPD and has SOB. Denies fever or chest pain. Has some runny nose. Pt said she is not on any Abx since May 2017. In ER, CT abd shows high grade partial SBO. Pt was admitted and surgery consulted by ER already. I have discussed CODE STATUS with pt, she clearly told me she doesn't want CPR but accept intubation, DNRCCA placed. Past Med Surg Social Fam HX - Past Medical History Medical history: cardiomyopathy, COPD, coronary artery disease, diabetes, GERD, migraine, myocardial infarction, osteoporosis, renal disease, thyroid disease, other Psychiatric history: anxiety, bipolar, depression, panic disorder, PTSD - Past Surgical History Surgical History: appendectomy, cataract, cholecystectomy, knee replacement ( right), orthopedic, other (right carpal tunnel), ANTON/BSO - Social History Smoking Status: Former smoker Smokeless Tobacco Status: No Alcohol use: rarely Drug use: none - Family History Father Adopted: No Family Member Ethnicity: Non- Living Status: Hx Family Cardiac Disorders: Yes (CAD,HTN) Hx Family Respiratory Disorders: No Hx Family Cancer: No Hx Family GI Disorders: Yes Hx Family Endocrine Disorder: Yes (DM) Hx Family Neuromuscular Disorders: No Hx Family Neurologic Disorders: No Hx Family HEENT Disorders: No Hx Family Autoimmune Disorders: No Internal Medicine - H&P: Meds Aclidinium [place] [Tudorza Pressair] 400 mcg IH BID 04/18/15 [History] Aspirin [Adult Low Dose Aspirin EC] 81 mg PO DAILY 04/18/15 [History] Budesonide/Formoterol 160/4.5 [Symbicort 160/4.5] 2 puff IH BIDR 04/18/15 [ History] Buspirone HCl [Buspar] 15 mg PO HS 04/18/15 [History] Carvedilol [Coreg] 3.125 mg PO BIDWM 04/18/15 [History] Roflumilast [Daliresp] 500 mcg PO DAILY 04/18/15 [History] Simvastatin [Zocor] 20 mg PO DAILY 04/18/15 [History] Calcium Polycarbophil [Fibercon] 625 mg PO QID PRN 08/02/15 [History] Pantoprazole Sodium [Protonix] 40 mg PO DAILY 08/02/15 [History] Albuterol Sulfate [Ventolin Hfa] 18 gm IH Q4H PRN 03/26/16 [History] Insulin ASPART [Novolog Flexpen] 2 - 14 unit SQ TID 03/26/16 [History] Ipratropium/Albuterol Neb [Duoneb] 3 ml IH Q4-6H PRN 03/26/16 [History] Oxygen 2 - 3 each NS CONT 03/26/16 [History] Potassium Chloride [Klor-Con] 20 meq PO DAILY 03/26/16 [History] Nitroglycerin [Nitrostat] 0.4 mg SL Q5M PRN 06/27/16 [History] Ranolazine [Ranexa] 1,000 mg PO BID 06/27/16 [History] Rizatriptan Benzoate [Maxalt] 10 mg PO ONCE PRN 09/19/16 [History] Simethicone [Gas-X] 80 mg PO QID 09/19/16 [History] Insulin Glargine,Hum.rec.anlog [Toujeo Solostar] 36 unit SQ HS 04/28/17 [History ] Linagliptin [Tradjenta] 5 mg PO DAILY 04/28/17 [History] Promethazine [Phenergan] 12.5 mg PO Q8HR PRN 04/28/17 [History] Escitalopram [Lexapro] 10 mg PO DAILY #30 tablet 04/30/17 [Rx] Fluticasone Propionate Nasal [Flonase] 50 mcg NS DAILY bottle 04/30/17 [Rx] levoFLOXacin [Levaquin] 500 mg PO DAILY #7 tablet 04/30/17 [Rx] predniSONE [PredniSONE] 60 mg PO DAILY 18 Days tablet 04/30/17 [Rx] Levofloxacin [Levaquin] 750 mg PO DAILY #7 tablet 05/22/17 [Rx] Meloxicam 7.5 mg PO BID #20 tablet 05/22/17 [Rx] PredniSONE [Deltasone] 60 mg PO DAILY #7 tablet 05/22/17 [Rx] 3 Allergy/AdvReac Type Severity Reaction Status Date / Time atorvastatin [From Lipitor] Allergy Swelling Verified 05/22/17 12:15 of Lip/Tongue/Throat bupropion [From Wellbutrin] Allergy Swelling Verified 05/22/17 12:15 of Lip/Tongue/Throat glimepiride Allergy Swelling Verified 05/22/17 12:15 of Lip/Tongue/Throat isosorbide [From Imdur] Allergy Swelling Verified 05/22/17 12:15 of Lip/Tongue/Throat lurasidone [From Latuda] Allergy Swelling Verified 05/22/17 12:15 of Lip/Tongue/Throat metformin Allergy Swelling Verified 05/22/17 12:15 of Lip/Tongue/Throat metoclopramide [From Reglan] Allergy Swelling Verified 05/22/17 12:15 of Lip/Tongue/Throat Penicillins Allergy Anaphylaxis Verified 05/22/17 12:15 prednisone Allergy Swelling Verified 05/22/17 12:15 of Lip/Tongue/Throat aspirin AdvReac Nausea Verified 05/22/17 12:15 clopidogrel [From Plavix] AdvReac Swelling Verified 05/22/17 12:15 of Lip/Tongue/Throat codeine AdvReac Nausea Verified 05/22/17 12:15 fluticasone AdvReac Swelling Verified 05/22/17 12:15 [From Advair Diskus] of Lip/Tongue/Throat hydrocodone [From [place]] AdvReac Swelling Verified 05/22/17 12:15 of Lip/Tongue/Throat Pertussis Vaccine,Adsorbed AdvReac Swelling Verified 05/22/17 12:15 of Lip/Tongue/Throat risperidone AdvReac Swelling Verified 05/22/17 12:15 of Lip/Tongue/Throat salmeterol AdvReac Swelling Verified 05/22/17 12:15 [From Advair Diskus] of Lip/Tongue/Throat tiotropium AdvReac Swelling Verified 05/22/17 12:15 [From Spiriva with of HandiHaler] Lip/Tongue/Throat venom-honey bee AdvReac Swelling Verified 05/22/17 12:15 [bee venom (honey bee)] of Lip/Tongue/Throat All Systems PM: A 10-system review of systems was performed and is negative for pertinent findings except as documented above in the HPI. - Constitutional Vitals: Temp Pulse Resp BP Pulse Ox 98.2 F 112 20 135/106 95 08/30/17 16:16 08/30/17 20:08 08/30/17 20:08 08/30/17 20:08 08/30/17 20:08 General appearance: Present: mild distress, A&O X 3, answers questions appropriately - Head Head exam: Present: atraumatic, normocephalic - Eye Eye exam: Present: PERRL, conjuntiva pink, sclera anicteric Pupils: Present: PERRL - Neck Neck exam general surgery: Present: supple, trachea midline. Absent: lymphadenopathy - Respiratory Respiratory exam: Present: CTAB, wheezes (scattered wheezes B/l). Absent: accessory muscle use, rales, rhonchi - Cardiovascular Cardiovascular exam: Present: RRR, +S1, +S2. Absent: diastolic murmur, gallop, rubs, systolic murmur - GI/Abdominal GI/Abdominal exam: Present: distended, hyperactive bowel sounds, normal bowel sounds, soft, tenderness (Abd tenderness in 4Q with rebound pain), no peritoneal signs - Extremities Exam Extremities exam: Present: warm, radial pulses palpable and symmetrical. Absent : calf tenderness, cyanotic, pedal edema - Neurological Exam Neurological exam: Present: CN II-XII intact, oriented X3, no focal deficits. Absent: pronater drift, facial droop, speech deficit - Skin Skin exam: Present: dry, intact Internal Med - H&P Results - Labs CBC & Chem 7: 08/30/17 17:19 08/30/17 17:19
[2017-08-30] MEDS: Budesonide/Formoterol 160/4.5 MDI IH SCH (22:12)
[2017-08-30] MEDS: Levalbuterol Neb 1.25 MG/3 ML IH SCH (22:12)
[2017-08-30] MEDS: 0.9 % Sodium Chloride 1,000 ML IVC SCH (22:24)
[2017-08-30] MEDS: Insulin DETEMIR 100 UNIT/ML X5UNITS SQ SCH (22:41)
[2017-08-30] MEDS: *HR* Promethazine 25 MG/ML VIAL IVP PRN (22:46)
[2017-08-30] MEDS: OXYCODONE Oral CONC 10 MG/0.5 ML ORAL.SYG SL PRN (23:02)
[2017-08-30] MEDS: Insulin LISPRO 300 UNITS/3 ML VIAL SQ SCH (23:54)
[2017-08-30] MEDS: methylPREDNISolone 125 MG/2 ML VIAL IVP SCH (23:55)
[2017-08-30] MEDS: MetroNIDAZOLE 500 MG/100 ML 500 MG/100 ML BAG IVPB SCH (23:56)
[2017-08-31] MEDS: Levalbuterol Neb 1.25 MG/3 ML IH SCH ×4 (03:59→22:16)
[2017-08-31 05:15] LABS: Basophils % 0.1 %; Hematocrit 40.5 % (35.3-44.9); Immature Granulocytes % 0.7 % (0-4); Lymphocytes # 1.4 K/mcL (0.6-4.6); Lymphocytes % 13.1 %; Mean Corpuscular HGB Conc 32.1 g/dL (31.6-35.5); Mean Corpuscular Volume 87.1 fL (83.0-100.0); Mean Platelet Volume 10.4 fL (9.4-12.4); Monocytes # 0.1 K/mcL (0.0-1.3); Monocytes % 0.8 %; Neutrophils # 9.4 K/mcL (1.6-8.9); Platelet Count 367 K/mcL (140-400); Red Blood Count 4.65 M/mcL (3.82-4.97); Red Cell Distribution Width 14.5 % (11.5-14.5); Segmented Neutrophils % 85.3 %
[2017-08-31 05:38] LABS: BUN/Creatinine Ratio 15 (6-26); Blood Urea Nitrogen 13 mg/dL (8-23); Calcium 8.9 mg/dL (8.6-10.3); Carbon Dioxide 24 mEq/L (23-29); Chloride 105 mEq/L (98-107); Glucose 181 mg/dL (70-105); Magnesium 1.6 mg/dL (1.6-2.6); Osmolality,Calculated 291 (280-300); Potassium 4.1 mEq/L (3.5-5.1); Sodium 138 mEq/L (136-145); eGFR For African Americans > 60 (> 60); eGFR For Non-African Americans > 60 (> 60)
[2017-08-31] MEDS: 0.9 % Sodium Chloride 1,000 ML IVC SCH (06:18)
[2017-08-31] MEDS: *HR* Heparin 5,000 UNIT/ML VIAL SQ SCH ×2 (06:28→17:50)
[2017-08-31] MEDS: Insulin LISPRO 300 UNITS/3 ML VIAL SQ SCH ×3 (06:28→18:08)
[2017-08-31] MEDS: OXYCODONE Oral CONC 10 MG/0.5 ML ORAL.SYG SL PRN ×2 (07:17→15:25)
[2017-08-31] MEDS: methylPREDNISolone 125 MG/2 ML VIAL IVP SCH ×2 (08:50→15:40)
[2017-08-31] MEDS: MetroNIDAZOLE 500 MG/100 ML 500 MG/100 ML BAG IVPB SCH ×2 (08:51→15:40)
[2017-08-31] MEDS: Budesonide/Formoterol 160/4.5 MDI IH SCH ×2 (10:07→22:11)
--- NOTE | 2017-08-31 10:25 | General Surgery Consult Note ---
Date of Encounter: 08/31/17 Time of Encounter: 09:45 Assessment and Plan (1) Partial small bowel obstruction Current Visit: Yes Status: Acute Abnormal CAT scan suggesting partial small bowel obstruction. Clinically she has 10 days of acute diarrhea. This essentially rules out complete bowel obstruction. The findings on CAT scan may be secondary to segmental gastroenteritis. We will continue to follow her clinically. If she develops more signs of worsening bowel obstruction we can always perform small bowel follow-through to see if there is a specific area that needs to be addressed surgically. We will follow with you. History of Present Illness Consult date: 08/31/17 Reason for consult: other (Abnormal CAT scan) History of present illness: The patient has severe oxygen dependent COPD. She is admitted with COPD exacerbation and 10 days of diarrhea. During evaluation she had CAT scan of the abdomen that demonstrated partial bowel obstruction with dilated proximal small bowel and what appears to be flaccid distal small bowel. She has had several episodes of vomiting but has also had concomitant diarrhea. She denies shakes chills or fever. She does have increasing shortness of breath as well as severe diarrhea. The diarrhea is not chronic and is about 10 days in duration. There is no hematochezia or melena. Next I personally reviewed CAT scan of the abdomen. She has a small ventral hernia that is not involved in any obstruction. Proximal small bowel was dilated compared to the distal small bowel. This may be an ileus injury pattern secondary to gastroenteritis or partial mechanical obstruction. I would recommend following her clinically with aggressive hydration and treat her COPD exacerbation as well as her diarrhea. If she develops more clinical signs of obstruction we can always perform small bowel follow-through. Past Med Surg Social Fam HX - Past Medical History Medical history: COPD, coronary artery disease, diabetes, GERD, migraine, myocardial infarction, osteoporosis, renal disease, thyroid disease, other Psychiatric history: anxiety, bipolar, depression, panic disorder, PTSD - Past Surgical History Surgical History: appendectomy, cataract, cholecystectomy, knee replacement, orthopedic, other, ANTON/BSO - Social History Smoking Status: Former smoker Smokeless Tobacco Status: No Alcohol use: rarely Drug use: none - Family History Father Adopted: No Family Member Ethnicity: Non- Living Status: Hx Family Cardiac Disorders: Yes (CAD,HTN) Hx Family Respiratory Disorders: No Hx Family Cancer: No Hx Family GI Disorders: Yes Hx Family Endocrine Disorder: Yes (DM) Hx Family Neuromuscular Disorders: No Hx Family Neurologic Disorders: No Hx Family HEENT Disorders: No Hx Family Autoimmune Disorders: No Medications and Allergies Aclidinium [place] [Tudorza Pressair] 400 mcg IH BID 04/18/15 [History] Aspirin [Adult Low Dose Aspirin EC] 81 mg PO DAILY 04/18/15 [History] Budesonide/Formoterol 160/4.5 [Symbicort 160/4.5] 2 puff IH BIDR 04/18/15 [ History] Buspirone HCl [Buspar] 15 mg PO HS 04/18/15 [History] Carvedilol [Coreg] 3.125 mg PO BIDWM 04/18/15 [History] Roflumilast [Daliresp] 500 mcg PO DAILY 04/18/15 [History] Simvastatin [Zocor] 20 mg PO DAILY 04/18/15 [History] Calcium Polycarbophil [Fibercon] 625 mg PO QID PRN 08/02/15 [History] Pantoprazole Sodium [Protonix] 40 mg PO DAILY 08/02/15 [History] Albuterol Sulfate [Ventolin Hfa] 18 gm IH Q4H PRN 03/26/16 [History] Insulin ASPART [Novolog Flexpen] 2 - 14 unit SQ TID 03/26/16 [History] Ipratropium/Albuterol Neb [Duoneb] 3 ml IH Q4-6H PRN 03/26/16 [History] Oxygen 2 - 3 each NS CONT 03/26/16 [History] Potassium Chloride [Klor-Con] 20 meq PO DAILY 03/26/16 [History] Nitroglycerin [Nitrostat] 0.4 mg SL Q5M PRN 06/27/16 [History] Ranolazine [Ranexa] 1,000 mg PO BID 06/27/16 [History] Rizatriptan Benzoate [Maxalt] 10 mg PO ONCE PRN 09/19/16 [History] Simethicone [Gas-X] 80 mg PO QID 09/19/16 [History] Insulin Glargine,Hum.rec.anlog [Toujeo Solostar] 36 unit SQ HS 04/28/17 [History ] Linagliptin [Tradjenta] 5 mg PO DAILY 04/28/17 [History] Promethazine [Phenergan] 12.5 mg PO Q8HR PRN 04/28/17 [History] Escitalopram [Lexapro] 10 mg PO DAILY #30 tablet 04/30/17 [Rx] Fluticasone Propionate Nasal [Flonase] 50 mcg NS DAILY bottle 04/30/17 [Rx] levoFLOXacin [Levaquin] 500 mg PO DAILY #7 tablet 04/30/17 [Rx] predniSONE [PredniSONE] 60 mg PO DAILY 18 Days tablet 04/30/17 [Rx] Levofloxacin [Levaquin] 750 mg PO DAILY #7 tablet 05/22/17 [Rx] Meloxicam 7.5 mg PO BID #20 tablet 05/22/17 [Rx] PredniSONE [Deltasone] 60 mg PO DAILY #7 tablet 05/22/17 [Rx] 3 Allergy/AdvReac Type Severity Reaction Status Date / Time atorvastatin [From Lipitor] Allergy Swelling Verified 05/22/17 12:15 of Lip/Tongue/Throat bupropion [From Wellbutrin] Allergy Swelling Verified 05/22/17 12:15 of Lip/Tongue/Throat glimepiride Allergy Swelling Verified 05/22/17 12:15 of Lip/Tongue/Throat isosorbide [From Imdur] Allergy Swelling Verified 05/22/17 12:15 of Lip/Tongue/Throat lurasidone [From Latuda] Allergy Swelling Verified 05/22/17 12:15 of Lip/Tongue/Throat metformin Allergy Swelling Verified 05/22/17 12:15 of Lip/Tongue/Throat metoclopramide [From Reglan] Allergy Swelling Verified 05/22/17 12:15 of Lip/Tongue/Throat Penicillins Allergy Anaphylaxis Verified 05/22/17 12:15 prednisone Allergy Swelling Verified 05/22/17 12:15 of Lip/Tongue/Throat aspirin AdvReac Nausea Verified 05/22/17 12:15 clopidogrel [From Plavix] AdvReac Swelling Verified 05/22/17 12:15 of Lip/Tongue/Throat codeine AdvReac Nausea Verified 05/22/17 12:15 fluticasone AdvReac Swelling Verified 05/22/17 12:15 [From Advair Diskus] of Lip/Tongue/Throat hydrocodone [From [place]] AdvReac Swelling Verified 05/22/17 12:15 of Lip/Tongue/Throat Pertussis Vaccine,Adsorbed AdvReac Swelling Verified 05/22/17 12:15 of Lip/Tongue/Throat risperidone AdvReac Swelling Verified 05/22/17 12:15 of Lip/Tongue/Throat salmeterol AdvReac Swelling Verified 05/22/17 12:15 [From Advair Diskus] of Lip/Tongue/Throat tiotropium AdvReac Swelling Verified 05/22/17 12:15 [From Spiriva with of HandiHaler] Lip/Tongue/Throat venom-honey bee AdvReac Swelling Verified 05/22/17 12:15 [bee venom (honey bee)] of Lip/Tongue/Throat Review of Systems All systems PM: A 10-system review of systems was performed and is negative for pertinent findings except as documented above in the HPI. General Surgery Exam Initial Vital Signs Temp Pulse Resp BP Pulse Ox 98.2 F 127 20 114/84 97 08/30/17 16:16 08/30/17 16:16 08/30/17 16:16 08/30/17 16:16 08/30/17 16:16 - General physical appearance well developed, no pain, chronically ill, obese - ENT normal pinna, normal nares, normal mucosa, no hearing loss, no congestion - Neck no masses (Short thick neck.Pickwickian habitus), no bruits, trachea midline, no lymphadectomy, no venous distension - Respiratory normal respiratory effort crackles: bilateral, wheezing: bilateral - Abdomen Abdomen general surgery: Present: bowel sounds present, non tender, distended - Integumentary Integumentary general surgery: Present: warm and dry, no abnormal pigmentation - Neurologic Present: CN 2-12 grossly intact, normal coordination, normal sensation - Psychiatric Psychiatric general surgery: Present: appropriate, oriented to person, oriented to place, oriented to time, speech is normal, memory intact Exam Initial Vital Signs Temp Pulse Resp BP Pulse Ox 98.2 F 127 20 114/84 97 08/30/17 16:16 08/30/17 16:16 08/30/17 16:16 08/30/17 16:16 08/30/17 16:16 Results - Labs 08/31/17 04:59 08/31/17 04:59 Abnormal lab results Neutrophils # 9.4 K/mcL (1.6-8.9) H 08/31/17 04:59 Glucose 181 mg/dL (70-105) H 08/31/17 04:59 POC Glucose 133 (58-89) H 08/30/17 23:54 Urine Color Red (Yellow) A 08/30/17 16:55 Urine Clarity Turbid (Clear) A 08/30/17 16:55 Ur Specific [place] > 1.030 (1.010-1.025) H 08/30/17 16:55 Urine Protein 30 mg/dL (Neg-Trace) H 08/30/17 16:55 Urine Bilirubin Small (Negative) H 08/30/17 16:55 Ur Leukocyte Esterase Moderate (Negative) H 08/30/17 16:55 Urine Microscopic WBC 50-100 per hpf (0-3) H 08/30/17 16:55 Ur Squamous Epith Cells Many per lpf (None-Few) H 08/30/17 16:55 Diabetes panel 08/31/17 Range/Units 04:59 Sodium 138 (136-145) mEq/L Potassium 4.1 (3.5-5.1) mEq/L Chloride 105 (98-107) mEq/L Carbon Dioxide 24 (23-29) mEq/L BUN 13 (8-23) mg/dL Creatinine 0.86 (0.60-1.20) mg/dL Glucose 181 H (70-105) mg/dL Calcium 8.9 (8.6-10.3) mg/dL Calcium panel 08/31/17 Range/Units 04:59 Calcium 8.9 (8.6-10.3) mg/dL Phosphorus 4.0 (2.7-4.5) mg/dL Pituitary panel 08/31/17 Range/Units 04:59 Sodium 138 (136-145) mEq/L Potassium 4.1 (3.5-5.1) mEq/L Chloride 105 (98-107) mEq/L Carbon Dioxide 24 (23-29) mEq/L BUN 13 (8-23) mg/dL Creatinine 0.86 (0.60-1.20) mg/dL Glucose 181 H (70-105) mg/dL Calcium 8.9 (8.6-10.3) mg/dL Adrenal panel 08/31/17 Range/Units 04:59 Sodium 138 (136-145) mEq/L Potassium 4.1 (3.5-5.1) mEq/L Chloride 105 (98-107) mEq/L Carbon Dioxide 24 (23-29) mEq/L BUN 13 (8-23) mg/dL Creatinine 0.86 (0.60-1.20) mg/dL Glucose 181 H (70-105) mg/dL Calcium 8.9 (8.6-10.3) mg/dL All other labs normal. Consult Discharge Plan - Plan Referrals: Lisa Brown CNP [Primary Care Provider] -
--- NOTE | 2017-08-31 15:54 | Internal Med Progress Note ---
Date of Encounter: 08/31/17 Time of Encounter: 15:52 - Assessment and plan (1) Partial small bowel obstruction Current Visit: Yes Status: Acute Assessment and plan: Clinically/radiologically has a partial small bowel obstruction. Presently surgical service on the board. We will follow the recommendations from surgery. (2) Acute exacerbation of chronic obstructive airways disease Current Visit: No Status: Acute Assessment and plan: Patient is known to have a chronic obstructive pulmonary disease. Presented with possible exacerbation of her chronic obstructive pulmonary disease. She is presently on antibiotics/intravenous steroids/inhaled bronchodilators. We will aggressively treat her COPD exacerbation. (3) Diabetes Current Visit: No Status: Chronic Assessment and plan: We will try to keep her blood sugar under control. We will follow the recommendations from subcutaneous insulin order set. 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 - Subjective Interval history: Patient seen and examined. Chart reviewed. patient is comfortably lying in the bed. Patient is very anxious to eat. Explained patient at length that she is not able to eat as she has a partial small bowel obstruction. - Constitutional Vitals: Temp Pulse Resp BP Pulse Ox 97.7 F 90 14 107/67 92 08/31/17 15:13 08/31/17 15:13 08/31/17 15:20 08/31/17 15:13 08/31/17 15:20 General appearance: Present: mild distress, A&O X 3, answers questions appropriately - Head Head exam: Present: atraumatic, normocephalic - Eye Eye exam: Present: PERRL, conjuntiva pink, sclera anicteric Pupils: Present: PERRL - Neck Neck exam general surgery: Present: supple, trachea midline. Absent: lymphadenopathy - Respiratory Respiratory exam: Present: CTAB. Absent: accessory muscle use, rales, rhonchi, wheezes - Cardiovascular Cardiovascular exam: Present: RRR, +S1, +S2. Absent: diastolic murmur, gallop, rubs, systolic murmur - GI/Abdominal GI/Abdominal exam: Present: normal bowel sounds, soft, no peritoneal signs. Absent: distended, tenderness - Extremities Exam Extremities exam: Present: warm, radial pulses palpable and symmetrical. Absent : calf tenderness, cyanotic, pedal edema - Neurological Exam Neurological exam: Present: CN II-XII intact, oriented X3, no focal deficits. Absent: pronater drift, facial droop, speech deficit - Skin Skin exam: Present: dry, intact Internal Medicine: Result - Labs CBC & Chem 7: 08/31/17 04:59 08/31/17 04:59 Labs: Short CBC 08/31/17 Range/Units 04:59 WBC 11.0 (4.3-11.1) K/mcL Hgb 13.0 D (11.5-15.4) g/dL Hct 40.5 (35.3-44.9) % Plt Count 367 (140-400) K/mcL Neutrophils # 9.4 H (1.6-8.9) K/mcL BMP 08/31/17 04:59 Sodium 138 Potassium 4.1 Chloride 105 Carbon Dioxide 24 BUN 13 Creatinine 0.86 Glucose 181 H Calcium 8.9 Consult Discharge Plan - Plan Referrals: Lisa Brown CNP [Primary Care Provider] -
[2017-08-31] MEDS: D5% in 0.9% NACL 1,000 ML IVC SCH (17:51)
[2017-08-31] MEDS: *HR* LORazepam 2 MG/ML VIAL IVP PRN (17:52)
[2017-08-31] MEDS: Insulin DETEMIR 100 UNIT/ML X5UNITS SQ SCH ×2 (17:58→22:39)
[2017-09-01] MEDS: methylPREDNISolone 125 MG/2 ML VIAL IVP SCH ×4 (00:35→23:54)
[2017-09-01] MEDS: *HR* LORazepam 2 MG/ML VIAL IVP PRN ×4 (00:38→22:11)
[2017-09-01] MEDS: MetroNIDAZOLE 500 MG/100 ML 500 MG/100 ML BAG IVPB SCH ×4 (00:43→23:54)
[2017-09-01] MEDS: Insulin LISPRO 300 UNITS/3 ML VIAL SQ SCH ×4 (00:44→18:17)
[2017-09-01] MEDS: OXYCODONE Oral CONC 10 MG/0.5 ML ORAL.SYG SL PRN ×4 (00:47→21:04)
[2017-09-01] MEDS: Levalbuterol Neb 1.25 MG/3 ML IH SCH ×5 (03:50→21:32)
[2017-09-01 03:53] LABS: Basophils % 0.1 %; Hematocrit 35.5 % (35.3-44.9); Immature Granulocytes % 0.7 % (0-4); Mean Corpuscular HGB Conc 31.5 g/dL (31.6-35.5); Mean Corpuscular Hemoglobin 27.7 pg (28.0-33.3); Mean Corpuscular Volume 87.7 fL (83.0-100.0); Mean Platelet Volume 10.4 fL (9.4-12.4); Monocytes # 0.5 K/mcL (0.0-1.3); Monocytes % 4.7 %; Neutrophils # 9.3 K/mcL (1.6-8.9); Platelet Count 328 K/mcL (140-400); Red Blood Count 4.05 M/mcL (3.82-4.97); Red Cell Distribution Width 14.6 % (11.5-14.5); Segmented Neutrophils % 85.5 %
[2017-09-01 03:54] LABS: Hemoglobin 11.2 g/dL (11.5-15.4)
[2017-09-01 04:25] LABS: Alanine Aminotransferase 9 Units/L (7-52); Albumin 2.9 g/dL (3.5-5.7); Albumin/Globulin Ratio 1.4 (1.1-2.2); Alkaline Phosphatase 43 Units/L (34-104); Aspartate Amino Transferase 16 Units/L (13-39); BUN/Creatinine Ratio 15 (6-26); Bilirubin,Total 0.2 mg/dL (0.3-1.0); Blood Urea Nitrogen 12 mg/dL (8-23); Calcium 8.6 mg/dL (8.6-10.3); Carbon Dioxide 24 mEq/L (23-29); Chloride 110 mEq/L (98-107); Globulin 2.1 g/dL (2.4-3.5); Glucose 154 mg/dL (70-105); Osmolality,Calculated 293 (280-300); Potassium 3.7 mEq/L (3.5-5.1); Sodium 140 mEq/L (136-145); eGFR For African Americans > 60 (> 60); eGFR For Non-African Americans > 60 (> 60)
[2017-09-01] MEDS: D5% in 0.9% NACL 1,000 ML IVC SCH ×2 (06:18→19:13)
[2017-09-01] MEDS: *HR* Heparin 5,000 UNIT/ML VIAL SQ SCH ×2 (06:20→18:14)
[2017-09-01] MEDS: Budesonide/Formoterol 160/4.5 MDI IH SCH ×2 (11:10→21:32)
--- NOTE | 2017-09-01 12:25 | General Surgery Progress Note ---
<Deann Jose - Last Filed: 09/01/17 12:38> Date of Encounter: 09/01/17 Time of Encounter: 12:23 - Assessment and Plan (1) Partial small bowel obstruction Current Visit: Yes Status: Acute 62 y F presenting with abdominal pain and diarrhea of multiple days Dr. Mixon reviewed CT, found to have ventral hernia likely not involved in any obstruction. Proximal small bowel was dilated compared to the distal small bowel. Presentation may be 2/2 to ileus pattern secondary to gastroenteritis or partial mechanical obstruction. We will continually to follow clinical status. Pt anxious to eat and clear in demanding cessation of NPO status, so advance to clear liquids, and will monitor response. Dr. Mixon counseled on importance of smoking cessation. Pt should refrain from smoking while in hospitaliztion. Subjective Patient reports: no flatus, no bowel movement Narrative: No acute events overnight. No nausea. States that she's giving providers an "ultimatum" : "eat today" or "cut today", referring to patient's request to d/c NPO. Objective Vital Signs - Last 8 Hours Temp Pulse Resp BP Pulse Ox 09/01/17 11:10 20 93 09/01/17 10:33 98.4 F 111 14 104/62 98 09/01/17 06:50 97.8 F 111 15 107/76 98 Intake and Output 08/31/17 09/01/17 09/01/17 23:59 07:59 15:59 Intake Total 100 / 100 1300 / 1300 Output Total 100 / 100 300 / 300 Balance 0 / 0 1000 / 1000 Intake: IV Fluids 100 / 100 1300 / 1300 D5% And 0.9% Nacl 1000 Ml 1,000 1000 / 1000 ML @ 100 mls/hr IVC .Q10H [facility] Rx#:[id number] Cipro Premix 400 MG/200 ML 400 200 / 200 mg In 200 ml @ 200 mls/hr IVPB Q12HR [facility] Rx#:[id number] Flagyl Premix 500 MG/100 ML 500 100 / 100 100 / 100 mg In 100 ml @ 100 mls/hr IVPB Q8HR [facility] Rx#:[id number] Oral 0 / 0 0 / 0 Output: Urine 100 / 100 300 / 300 Other: Meal Dinner Percent of Meal Consumed 0% Blood Glucose* 158 208 137 - General physical appearance no distress - Respiratory normal expansion, normal respiratory effort (equal b/s bilaterally) - Cardiovascular Cardiovascular exam: Present: regular rhythm (+S1, S2.). Absent: tachycardia - Abdomen Abdomen: Present: bowel sounds present (a few BS present), soft, tender (mild) - Labs 09/01/17 02:51 09/01/17 02:51 Diabetes panel 09/01/17 Range/Units 02:51 Sodium 140 (136-145) mEq/L Potassium 3.7 (3.5-5.1) mEq/L Chloride 110 H (98-107) mEq/L Carbon Dioxide 24 (23-29) mEq/L BUN 12 (8-23) mg/dL Creatinine 0.79 (0.60-1.20) mg/dL Glucose 154 H (70-105) mg/dL Calcium 8.6 (8.6-10.3) mg/dL AST 16 (13-39) Units/L ALT 9 (7-52) Units/L Alkaline Phosphatase 43 (34-104) Units/L Albumin 2.9 L (3.5-5.7) g/dL Calcium panel 09/01/17 Range/Units 02:51 Calcium 8.6 (8.6-10.3) mg/dL Albumin 2.9 L (3.5-5.7) g/dL Pituitary panel 09/01/17 Range/Units 02:51 Sodium 140 (136-145) mEq/L Potassium 3.7 (3.5-5.1) mEq/L Chloride 110 H (98-107) mEq/L Carbon Dioxide 24 (23-29) mEq/L BUN 12 (8-23) mg/dL Creatinine 0.79 (0.60-1.20) mg/dL Glucose 154 H (70-105) mg/dL Calcium 8.6 (8.6-10.3) mg/dL Adrenal panel 09/01/17 Range/Units 02:51 Sodium 140 (136-145) mEq/L Potassium 3.7 (3.5-5.1) mEq/L Chloride 110 H (98-107) mEq/L Carbon Dioxide 24 (23-29) mEq/L BUN 12 (8-23) mg/dL Creatinine 0.79 (0.60-1.20) mg/dL Glucose 154 H (70-105) mg/dL Calcium 8.6 (8.6-10.3) mg/dL Total Bilirubin 0.2 L (0.3-1.0) mg/dL AST 16 (13-39) Units/L ALT 9 (7-52) Units/L Alkaline Phosphatase 43 (34-104) Units/L Albumin 2.9 L (3.5-5.7) g/dL Consult Discharge Plan - Plan Referrals: Lisa Brown CNP [Primary Care Provider] - 09/08/17 2:15 pm Chelsey Guzman MD [Partnered Physician] - 09/11/17 2:15 pm Checo Albrecht DO [Partnered Physician] - 09/15/17 9:20 am Fermin Sanderson CNP [Advanced Practice Nurse] - 09/04/17 10:30 am <Jay Mixon - Last Filed: 09/02/17 08:50> Date of Encounter: 09/01/17 - Assessment and Plan (1) Partial small bowel obstruction Current Visit: Yes Status: Acute Objective Vital Signs - Last 8 Hours Temp Pulse Resp BP Pulse Ox 09/02/17 06:31 97.9 F 110 19 129/73 96 09/02/17 04:13 18 97 09/02/17 03:45 97.6 F 111 20 140/96 91 Intake and Output 09/01/17 09/02/17 09/02/17 23:59 07:59 15:59 Intake Total 300 / 300 420 / 420 Output Total 850 / 850 300 / 300 Balance -550 / -550 120 / 120 Intake: IV Fluids 300 / 300 300 / 300 Cipro Premix 400 MG/200 ML 400 200 / 200 200 / 200 mg In 200 ml @ 200 mls/hr IVPB Q12HR [facility] Rx#:[id number] Flagyl Premix 500 MG/100 ML 500 100 / 100 100 / 100 mg In 100 ml @ 100 mls/hr IVPB Q8HR [facility] Rx#:[id number] Oral 0 / 0 120 / 120 Output: Urine 850 / 850 300 / 300 Other: # Voids 0 0 Weight 69.5 kg Blood Glucose* 226 148 Patient Weight 09/02/17 23:59 Weight 69.5 kg - Labs 09/02/17 03:11 09/02/17 03:11 Diabetes panel 09/02/17 Range/Units 03:11 Sodium 142 (136-145) mEq/L Potassium 3.4 L (3.5-5.1) mEq/L Chloride 108 H (98-107) mEq/L Carbon Dioxide 28 (23-29) mEq/L BUN 8 (8-23) mg/dL Creatinine 0.74 (0.60-1.20) mg/dL Glucose 136 H (70-105) mg/dL Calcium 8.4 L (8.6-10.3) mg/dL AST 16 (13-39) Units/L ALT 12 (7-52) Units/L Alkaline Phosphatase 42 (34-104) Units/L Albumin 3.0 L (3.5-5.7) g/dL Calcium panel 09/02/17 Range/Units 03:11 Calcium 8.4 L (8.6-10.3) mg/dL Albumin 3.0 L (3.5-5.7) g/dL Pituitary panel 09/02/17 Range/Units 03:11 Sodium 142 (136-145) mEq/L Potassium 3.4 L (3.5-5.1) mEq/L Chloride 108 H (98-107) mEq/L Carbon Dioxide 28 (23-29) mEq/L BUN 8 (8-23) mg/dL Creatinine 0.74 (0.60-1.20) mg/dL Glucose 136 H (70-105) mg/dL Calcium 8.4 L (8.6-10.3) mg/dL Adrenal panel 09/02/17 Range/Units 03:11 Sodium 142 (136-145) mEq/L Potassium 3.4 L (3.5-5.1) mEq/L Chloride 108 H (98-107) mEq/L Carbon Dioxide 28 (23-29) mEq/L BUN 8 (8-23) mg/dL Creatinine 0.74 (0.60-1.20) mg/dL Glucose 136 H (70-105) mg/dL Calcium 8.4 L (8.6-10.3) mg/dL Total Bilirubin 0.2 L (0.3-1.0) mg/dL AST 16 (13-39) Units/L ALT 12 (7-52) Units/L Alkaline Phosphatase 42 (34-104) Units/L Albumin 3.0 L (3.5-5.7) g/dL - Attending Attestation I examined this patient and my medical decision-making was reviewed with the Resident Physician. I agree with the documented findings, disposition and treatment plan as described except to the extent set forth below. The patient is seen and evaluated on morning rounds with rest. Her abdomen is completely benign. She has good bowel sounds. We will give her dietary trial of clear liquids. If she has any recurrence of her abdominal pain or continues to not have a bowel movement she will require small bowel follow-through Jay Mixon MD FACS
--- NOTE | 2017-09-01 13:25 | Internal Med Progress Note ---
Date of Encounter: 09/01/17 Time of Encounter: 13:22 - Assessment and plan (1) Partial small bowel obstruction Current Visit: Yes Status: Acute Assessment and plan: Clinically/radiologically has a partial small bowel obstruction. Presently surgical service on the board. We will follow the recommendations from surgery. 09/01/2017 patient has improved in terms of pain. noted that her diet is advanced. presently on clear liquid diet. plan will follow recommendations from surgery. (2) Acute exacerbation of chronic obstructive airways disease Current Visit: No Status: Acute Assessment and plan: Patient is known to have a chronic obstructive pulmonary disease. Presented with possible exacerbation of her chronic obstructive pulmonary disease. She is presently on antibiotics/intravenous steroids/inhaled bronchodilators. We will aggressively treat her COPD exacerbation. 09/01/2017 clinically still has polyphonic rhonchi on steroids/abx and BDAs will continue present treatment. (3) Diabetes Current Visit: No Status: Chronic Assessment and plan: We will try to keep her blood sugar under control. We will follow the recommendations from subcutaneous insulin order set. 09/01/2017 keen to have some added sugar and she promised that she will not self administer insulin. plan will add home dose of insulin. will follow recommendations from sub insulin order set. 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 - Subjective Interval history: Patient seen and examined. Chart reviewed. patient is comfortably lying in the bed. Patient is very anxious to eat. Explained patient at length that she is not able to eat as she has a partial small bowel obstruction. 09/01/2017 patient seen and examined. chart reviewed. she is keen to have some sugar added in her food also keen to have some solid food as soon as possible. - Constitutional Vitals: Temp Pulse Resp BP Pulse Ox 98.4 F 111 20 104/62 93 09/01/17 10:33 09/01/17 10:33 09/01/17 11:10 09/01/17 10:33 09/01/17 11:10 General appearance: Present: mild distress, A&O X 3, answers questions appropriately - Head Head exam: Present: atraumatic, normocephalic - Eye Eye exam: Present: PERRL, conjuntiva pink, sclera anicteric Pupils: Present: PERRL - Neck Neck exam general surgery: Present: supple, trachea midline. Absent: lymphadenopathy - Respiratory Respiratory exam: Present: CTAB. Absent: accessory muscle use, rales, rhonchi, wheezes - Cardiovascular Cardiovascular exam: Present: RRR, +S1, +S2. Absent: diastolic murmur, gallop, rubs, systolic murmur - GI/Abdominal GI/Abdominal exam: Present: normal bowel sounds, soft, no peritoneal signs. Absent: distended, tenderness - Extremities Exam Extremities exam: Present: warm, radial pulses palpable and symmetrical. Absent : calf tenderness, cyanotic, pedal edema - Neurological Exam Neurological exam: Present: CN II-XII intact, oriented X3, no focal deficits. Absent: pronater drift, facial droop, speech deficit - Skin Skin exam: Present: dry, intact Internal Medicine: Result - Labs CBC & Chem 7: 09/01/17 02:51 09/01/17 02:51 Labs: Short CBC 09/01/17 Range/Units 02:51 WBC 10.9 (4.3-11.1) K/mcL Hgb 11.2 L D (11.5-15.4) g/dL Hct 35.5 (35.3-44.9) % Plt Count 328 (140-400) K/mcL Neutrophils # 9.3 H (1.6-8.9) K/mcL BMP 09/01/17 02:51 Sodium 140 Potassium 3.7 Chloride 110 H Carbon Dioxide 24 BUN 12 Creatinine 0.79 Glucose 154 H Calcium 8.6 Liver Function 09/01/17 Range/Units 02:51 Total Bilirubin 0.2 L (0.3-1.0) mg/dL AST 16 (13-39) Units/L ALT 9 (7-52) Units/L Alkaline Phosphatase 43 (34-104) Units/L Albumin 2.9 L (3.5-5.7) g/dL Consult Discharge Plan - Plan Referrals: Lisa Brown CNP [Primary Care Provider] - 09/08/17 2:15 pm Chelsey Guzman MD [Partnered Physician] - 09/11/17 2:15 pm Checo Albrecht DO [Partnered Physician] - 09/15/17 9:20 am Fermin Sanderson CNP [Advanced Practice Nurse] - 09/04/17 10:30 am
[2017-09-01] MEDS ORDERED: Benzonatate 100 MG CAPSULE PO PRN (16:25)
[2017-09-01] MEDS: Nystatin POWDER 30 GM BOTTLE TP SCH (18:16)
[2017-09-01] MEDS ORDERED: Furosemide 20 MG/2 ML VIAL IVP ONE ×2 (18:53→18:57)
[2017-09-01] MEDS: Insulin DETEMIR 100 UNIT/ML X5UNITS SQ SCH (20:18)
[2017-09-01] MEDS: *HR* Promethazine 25 MG/ML VIAL IVP PRN (20:18)
[2017-09-02] MEDS ORDERED: D5% in Water 1,000 ML IVC PRN (01:29)
[2017-09-02] MEDS: Insulin LISPRO 300 UNITS/3 ML VIAL SQ SCH ×4 (01:45→16:51)
[2017-09-02] MEDS: OXYCODONE Oral CONC 10 MG/0.5 ML ORAL.SYG SL PRN ×3 (03:53→22:12)
[2017-09-02] MEDS: *HR* LORazepam 2 MG/ML VIAL IVP PRN ×2 (04:00→22:12)
[2017-09-02] MEDS: Levalbuterol Neb 1.25 MG/3 ML IH SCH ×4 (04:12→21:22)
[2017-09-02 04:23] LABS: Basophils % 0.1 %; Hematocrit 38.1 % (35.3-44.9); Hemoglobin 12.1 g/dL (11.5-15.4); Immature Granulocytes % 1.1 % (0-4); Lymphocytes # 1.1 K/mcL (0.6-4.6); Lymphocytes % 7.4 %; Mean Corpuscular HGB Conc 31.8 g/dL (31.6-35.5); Mean Corpuscular Hemoglobin 27.9 pg (28.0-33.3); Mean Platelet Volume 10.7 fL (9.4-12.4); Monocytes # 0.5 K/mcL (0.0-1.3); Monocytes % 3.4 %; Neutrophils # 13.1 K/mcL (1.6-8.9); Platelet Count 351 K/mcL (140-400); Red Blood Count 4.33 M/mcL (3.82-4.97); Red Cell Distribution Width 14.9 % (11.5-14.5)
[2017-09-02 05:03] LABS: Alanine Aminotransferase 12 Units/L (7-52); Albumin/Globulin Ratio 1.4 (1.1-2.2); Alkaline Phosphatase 42 Units/L (34-104); Aspartate Amino Transferase 16 Units/L (13-39); BUN/Creatinine Ratio 11 (6-26); Bilirubin,Total 0.2 mg/dL (0.3-1.0); Blood Urea Nitrogen 8 mg/dL (8-23); Calcium 8.4 mg/dL (8.6-10.3); Carbon Dioxide 28 mEq/L (23-29); Chloride 108 mEq/L (98-107); Globulin 2.1 g/dL (2.4-3.5); Glucose 136 mg/dL (70-105); Osmolality,Calculated 294 (280-300); Potassium 3.4 mEq/L (3.5-5.1); Sodium 142 mEq/L (136-145); Total Protein 5.1 g/dL (6.4-8.9); eGFR For African Americans > 60 (> 60); eGFR For Non-African Americans > 60 (> 60)
[2017-09-02] MEDS ORDERED: *HR* LORazepam 0.5 MG TABLET PO PRN (05:32)
[2017-09-02] MEDS: *HR* Heparin 5,000 UNIT/ML VIAL SQ SCH ×2 (06:14→18:17)
[2017-09-02] MEDS: methylPREDNISolone 125 MG/2 ML VIAL IVP SCH ×2 (08:39→15:33)
[2017-09-02] MEDS: MetroNIDAZOLE 500 MG/100 ML 500 MG/100 ML BAG IVPB SCH ×2 (08:39→15:35)
[2017-09-02] MEDS: Nystatin POWDER 30 GM BOTTLE TP SCH ×2 (08:49→22:16)
[2017-09-02] MEDS: *HR* Promethazine 25 MG/ML VIAL IVP PRN ×3 (11:00→22:26)
[2017-09-02] MEDS: Budesonide/Formoterol 160/4.5 MDI IH SCH ×2 (11:52→21:22)
--- NOTE | 2017-09-02 12:07 | General Surgery Progress Note ---
<Deann Jose - Last Filed: 09/02/17 12:17> Date of Encounter: 09/02/17 Time of Encounter: 12:04 - Assessment and Plan (1) Partial small bowel obstruction Current Visit: Yes Status: Acute 62 y F presenting with abdominal pain and diarrhea of multiple days Dr. Mixon personally reviewed CT, found to have ventral hernia likely not involved in any obstruction. Proximal small bowel was dilated compared to the distal small bowel. Presentation may be 2/2 to ileus pattern secondary to gastroenteritis or partial mechanical obstruction. We will continually to follow clinical status. Pt anxious to eat and clear in demanding cessation of NPO status yesterday. This morning, endorsed that she did not tolerate full liquid diet. She is not amenable to NPO, but agreeable to clear liquid diet. Per RN, patient passed bedside swallow evaluation FT with barium, per Dr. Mixon. Results pending. Dr. Mixon counseled on importance of smoking cessation yesterday. Reiterated to Pt, she should refrain from smoking while in hospitalization. (2) CAD (coronary artery disease) Current Visit: No Status: Chronic Noted episode of Irregular heartbeat <30 seconds, during evaluation. Notified primary on floor. Patient states she has cardiology outpatient appt scheduled this week. Consideration of cardiology consult, per primary. Qualifiers: Coronary Disease-Associated Artery/Lesion type: [place] artery [place] vs. transplanted heart: [place] heart Associated angina: with unspecified angina Qualified Code(s): I25.119 - Atherosclerotic heart disease of [place] coronary artery with unspecified angina pectoris (3) COPD with exacerbation Current Visit: No Status: Acute Per primary. Subjective Narrative: Pt endorsed nausea with full liquid diet. Denies increased abdominal discomfort. Denies flatus, bowel movement. Counseled patient that we had recommended that she remain on NPO. She is amenable only to clear liquid diet. Objective Vital Signs - Last 8 Hours Temp Pulse Resp BP Pulse Ox 09/02/17 06:31 97.9 F 110 19 129/73 96 09/02/17 04:13 18 97 Intake and Output 09/01/17 09/02/17 09/02/17 23:59 07:59 15:59 Intake Total 300 / 300 420 / 420 100 / 100 Output Total 850 / 850 300 / 300 Balance -550 / -550 120 / 120 100 / 100 Intake: IV Fluids 300 / 300 300 / 300 100 / 100 Cipro Premix 400 MG/200 ML 400 200 / 200 200 / 200 mg In 200 ml @ 200 mls/hr IVPB Q12HR [facility] Rx#:[id number] Flagyl Premix 500 MG/100 ML 500 100 / 100 100 / 100 100 / 100 mg In 100 ml @ 100 mls/hr IVPB Q8HR [facility] Rx#:[id number] Oral 0 / 0 120 / 120 Output: Urine 850 / 850 300 / 300 Other: # Voids 0 0 Weight 69.5 kg Blood Glucose* 226 148 Patient Weight 09/02/17 23:59 Weight 69.5 kg - General physical appearance no distress - Respiratory normal respiratory effort wheezing: bilateral - Cardiovascular Cardiovascular exam: Present: irregular rhythm - Abdomen Abdomen: Present: soft (a few bowel sounds present), tender (mild). Absent: guarding, rebound - Labs 09/02/17 03:11 09/02/17 03:11 Diabetes panel 09/02/17 Range/Units 03:11 Sodium 142 (136-145) mEq/L Potassium 3.4 L (3.5-5.1) mEq/L Chloride 108 H (98-107) mEq/L Carbon Dioxide 28 (23-29) mEq/L BUN 8 (8-23) mg/dL Creatinine 0.74 (0.60-1.20) mg/dL Glucose 136 H (70-105) mg/dL Calcium 8.4 L (8.6-10.3) mg/dL AST 16 (13-39) Units/L ALT 12 (7-52) Units/L Alkaline Phosphatase 42 (34-104) Units/L Albumin 3.0 L (3.5-5.7) g/dL Calcium panel 09/02/17 Range/Units 03:11 Calcium 8.4 L (8.6-10.3) mg/dL Albumin 3.0 L (3.5-5.7) g/dL Pituitary panel 09/02/17 Range/Units 03:11 Sodium 142 (136-145) mEq/L Potassium 3.4 L (3.5-5.1) mEq/L Chloride 108 H (98-107) mEq/L Carbon Dioxide 28 (23-29) mEq/L BUN 8 (8-23) mg/dL Creatinine 0.74 (0.60-1.20) mg/dL Glucose 136 H (70-105) mg/dL Calcium 8.4 L (8.6-10.3) mg/dL Adrenal panel 09/02/17 Range/Units 03:11 Sodium 142 (136-145) mEq/L Potassium 3.4 L (3.5-5.1) mEq/L Chloride 108 H (98-107) mEq/L Carbon Dioxide 28 (23-29) mEq/L BUN 8 (8-23) mg/dL Creatinine 0.74 (0.60-1.20) mg/dL Glucose 136 H (70-105) mg/dL Calcium 8.4 L (8.6-10.3) mg/dL Total Bilirubin 0.2 L (0.3-1.0) mg/dL AST 16 (13-39) Units/L ALT 12 (7-52) Units/L Alkaline Phosphatase 42 (34-104) Units/L Albumin 3.0 L (3.5-5.7) g/dL Consult Discharge Plan - Plan Referrals: Lisa Brown CNP [Primary Care Provider] - 09/08/17 2:15 pm Chelsey Guzman MD [Partnered Physician] - 09/11/17 2:15 pm Checo Albrecht DO [Partnered Physician] - 09/15/17 9:20 am Fermin Sanderson CNP [Advanced Practice Nurse] - 09/04/17 10:30 am <Jay Mixon - Last Filed: 09/03/17 16:17> Date of Encounter: 09/02/17 - Assessment and Plan (1) Partial small bowel obstruction Current Visit: Yes Status: Acute Objective Vital Signs - Last 8 Hours Temp Pulse Resp BP Pulse Ox 09/03/17 11:49 98.1 F 97 16 125/76 96 09/03/17 11:18 18 100 Intake and Output 09/03/17 09/03/17 09/03/17 07:59 15:59 23:59 Intake Total 100 / 100 100 / 100 Output Total 225 / 225 Balance -125 / -125 100 / 100 Intake: IV Fluids 100 / 100 100 / 100 Flagyl Premix 500 MG/100 ML 500 100 / 100 100 / 100 mg In 100 ml @ 100 mls/hr IVPB Q8HR [facility] Rx#:[id number] Oral 0 / 0 Output: Wound Drainage 225 / 225 NG Tube 225 / 225 Other: # Voids 0 1 Weight 70 kg Blood Glucose* 81 77 Patient Weight 09/03/17 23:59 Weight 70 kg - Labs 09/03/17 04:40 09/03/17 04:40 Diabetes panel 09/03/17 Range/Units 04:40 Sodium 141 (136-145) mEq/L Potassium 3.8 (3.5-5.1) mEq/L Chloride 102 (98-107) mEq/L Carbon Dioxide 36 H (23-29) mEq/L BUN 11 (8-23) mg/dL Creatinine 0.74 (0.60-1.20) mg/dL Glucose 82 (70-105) mg/dL Calcium 8.4 L (8.6-10.3) mg/dL AST 14 (13-39) Units/L ALT 12 (7-52) Units/L Alkaline Phosphatase 39 (34-104) Units/L Albumin 2.8 L (3.5-5.7) g/dL Calcium panel 09/03/17 Range/Units 04:40 Calcium 8.4 L (8.6-10.3) mg/dL Albumin 2.8 L (3.5-5.7) g/dL Pituitary panel 09/03/17 Range/Units 04:40 Sodium 141 (136-145) mEq/L Potassium 3.8 (3.5-5.1) mEq/L Chloride 102 (98-107) mEq/L Carbon Dioxide 36 H (23-29) mEq/L BUN 11 (8-23) mg/dL Creatinine 0.74 (0.60-1.20) mg/dL Glucose 82 (70-105) mg/dL Calcium 8.4 L (8.6-10.3) mg/dL Adrenal panel 09/03/17 Range/Units 04:40 Sodium 141 (136-145) mEq/L Potassium 3.8 (3.5-5.1) mEq/L Chloride 102 (98-107) mEq/L Carbon Dioxide 36 H (23-29) mEq/L BUN 11 (8-23) mg/dL Creatinine 0.74 (0.60-1.20) mg/dL Glucose 82 (70-105) mg/dL Calcium 8.4 L (8.6-10.3) mg/dL Total Bilirubin 0.3 (0.3-1.0) mg/dL AST 14 (13-39) Units/L ALT 12 (7-52) Units/L Alkaline Phosphatase 39 (34-104) Units/L Albumin 2.8 L (3.5-5.7) g/dL - Attending Attestation I examined this patient and my medical decision-making was reviewed with the Resident Physician. I agree with the documented findings, disposition and treatment plan as described except to the extent set forth below. The patient continues to have crampy abdominal discomfort. Patient was seen and evaluated with retrosternal morning rounds. We will order small bowel follow-through to evaluate the possibility of bowel obstruction. Jay Mixon MD FACS
[2017-09-02] MEDS ORDERED: Potassium Chloride 40 MEQ, Lidocaine 1% 2 ML in D5% in Water 500 ML IVPB ONE (15:25)
--- NOTE | 2017-09-02 16:59 | Internal Med Progress Note ---
<BisiDar Deal - Last Filed: 09/02/17 16:56> Date of Encounter: 09/02/17 Time of Encounter: 13:00 - Assessment and plan (1) Partial small bowel obstruction Current Visit: Yes Status: Acute Assessment and plan: Patient has abdominal distention, tenderness to light palpation, hypoactive bowel sounds, tympanic to palpation, nausea vomiting, absence of flatulence or bowel movements. - Gen. surgery following concerns for small bowel obstruction - Small bowel follow-through concerning for distal SBO - Patient nothing by mouth - Awaiting further recommendations from general surgery (2) Tachycardia Current Visit: Yes Status: Acute Assessment and plan: Patient has a history of tachycardia, current heart rate roughly 130. - Home medication Coreg 3.125 twice a day - Currently not taking beta jose g as she is nothing by mouth prior to potential surgery. - Metoprolol 5 mg IV every 6 hours when necessary with holding parameters. (3) Insulin dependent diabetes mellitus Current Visit: Yes Status: Acute Assessment and plan: Known type 2 diabetes insulin-dependent. - Glucose well controlled, patient is nothing by mouth with possible SBO Plan: - Levemir 36 units subcutaneous at bedtime - Subcutaneous low-dose sliding scale - Before meals at bedtime glucose checks (4) CAD (coronary artery disease) Current Visit: No Status: Chronic Assessment and plan: Coronary artery disease, stable. EKG - sinus tachycardia, with no acute ischemic changes Qualifiers: Coronary Disease-Associated Artery/Lesion type: [place] artery [place] vs. transplanted heart: [place] heart Associated angina: with unspecified angina Qualified Code(s): I25.119 - Atherosclerotic heart disease of [place] coronary artery with unspecified angina pectoris (5) DVT prophylaxis Current Visit: No Status: Acute Assessment and plan: Subcutaneous Heparin. - Subjective Interval history: Ms. Gomez 62 year old female seen and evaluated at patient's bedside. She states that she continues to have abdominal pain and bloating but states that her abdomen is not much more extended usual. She denies any fevers, chills or sweating currently but had them in the past couple days. She denies any bowel movements or flatulence but says that she has had diarrhea leading up to her current admission. Her abdomen she states is very tender to light palpation and she continues to have nausea. - Constitutional Vitals: Temp Pulse Resp BP Pulse Ox 97.9 F 125 16 150/90 96 09/02/17 06:31 09/02/17 15:00 09/02/17 16:33 09/02/17 15:00 09/02/17 16:33 General appearance: Present: mild distress, A&O X 3, answers questions appropriately Exam: General: Patient alert, awake, oriented 3, interactive, in no acute distress HEENT: Normocephalic, atraumatic, pupils equal reactive to light, nasal cavity patent and open septum median position, oral mucosa moist, neck supple trachea midline no palpable lymphadenopathy, no thyromegaly. Chest: Symmetric bilateral correlating with respiratory effort, effort nonlabored. Cardiac: Tachycardia, positive S1 and S2. no bruits appreciated bilateral carotids, Radial pulses 2+ bilateral, posterior tibial and dorsal pedal pulses 2 + bilateral. Respiratory: Clear to auscultation all lung [place] Abdomen: Abdomen distended, tender to light palpation, hypoactive to absent bowel sounds, tympanic, skin examination demonstrates old scars in the right upper quadrant and suprapubic region. Extremities: Symmetric bilateral, bilateral lower extremities without erythema or edema patient moving all 4 extremities spontaneously. Neurologic: No focal deficits appreciated on examination. Face symmetric, muscle strength symmetric bilateral upper and lower extremities. Internal Medicine: Result - Labs CBC & Chem 7: 09/02/17 03:11 09/02/17 03:11 Labs: Short CBC 09/02/17 Range/Units 03:11 WBC 14.9 H (4.3-11.1) K/mcL Hgb 12.1 (11.5-15.4) g/dL Hct 38.1 (35.3-44.9) % Plt Count 351 (140-400) K/mcL Neutrophils # 13.1 H (1.6-8.9) K/mcL BMP 09/02/17 03:11 Sodium 142 Potassium 3.4 L Chloride 108 H Carbon Dioxide 28 BUN 8 Creatinine 0.74 Glucose 136 H Calcium 8.4 L Liver Function 09/02/17 Range/Units 03:11 Total Bilirubin 0.2 L (0.3-1.0) mg/dL AST 16 (13-39) Units/L ALT 12 (7-52) Units/L Alkaline Phosphatase 42 (34-104) Units/L Albumin 3.0 L (3.5-5.7) g/dL - Impressions Impressions Chest X-Ray 09/01/17 18:52 IMPRESSION: Low lung volume study. Increased linear opacities at the bases may reflect atelectasis and less likely infiltrate. D/ / 09/01/2017 20:01:04 Jean-Paul Hanley MD / [email or web address] Interpreting Provider: Jean-Paul Hanley MD Small Bowel X-Ray 09/02/17 10:35 IMPRESSION: Findings consistent with distal small-bowel obstruction. Follow-up KUB in 3 hours may be helpful for further evaluation These results were sent to [employer] communications to be called to a license caregiver D/ / Tobias Mendez MD / Tobias Mendez MD Interpreting Provider: Tobias Mendez MD Consult Discharge Plan - Plan Referrals: Lisa Brown CNP [Primary Care Provider] - 09/08/17 2:15 pm Chelsey Guzman MD [Partnered Physician] - 09/11/17 2:15 pm Checo Albrecht DO [Partnered Physician] - 09/15/17 9:20 am Fermin Sanderson CNP [Advanced Practice Nurse] - 09/04/17 10:30 am <Ej Bertrand - Last Filed: 09/02/17 18:46> Date of Encounter: 09/02/17 - Assessment and plan (1) Partial small bowel obstruction Current Visit: Yes Status: Acute (2) CAD (coronary artery disease) Current Visit: No Status: Chronic Qualifiers: Coronary Disease-Associated Artery/Lesion type: [place] artery [place] vs. transplanted heart: [place] heart Associated angina: with unspecified angina Qualified Code(s): I25.119 - Atherosclerotic heart disease of [place] coronary artery with unspecified angina pectoris (3) CKD (chronic kidney disease) stage 3, GFR 30-59 ml/min Current Visit: No Status: Chronic (4) Chronic respiratory failure Current Visit: No Status: Chronic Qualifiers: Respiratory failure complication: hypoxia Qualified Code(s): J96.11 - Chronic respiratory failure with hypoxia (5) Diabetes Current Visit: No Status: Chronic Qualifiers: Diabetes mellitus type: type 2 Diabetes mellitus complication status: with hyperglycemia Diabetes mellitus prison insulin use: with prison use Qualified Code(s): E11.65 - Type 2 diabetes mellitus with hyperglycemia; 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 - Constitutional Vitals: Temp Pulse Resp BP Pulse Ox 97.9 F 122 16 151/101 96 09/02/17 06:31 09/02/17 18:26 09/02/17 16:33 09/02/17 18:26 09/02/17 16:33 Internal Medicine: Result - Labs CBC & Chem 7: 09/02/17 03:11 09/02/17 03:11 Labs: Short CBC 09/02/17 Range/Units 03:11 WBC 14.9 H (4.3-11.1) K/mcL Hgb 12.1 (11.5-15.4) g/dL Hct 38.1 (35.3-44.9) % Plt Count 351 (140-400) K/mcL Neutrophils # 13.1 H (1.6-8.9) K/mcL BMP 09/02/17 03:11 Sodium 142 Potassium 3.4 L Chloride 108 H Carbon Dioxide 28 BUN 8 Creatinine 0.74 Glucose 136 H Calcium 8.4 L Liver Function 09/02/17 Range/Units 03:11 Total Bilirubin 0.2 L (0.3-1.0) mg/dL AST 16 (13-39) Units/L ALT 12 (7-52) Units/L Alkaline Phosphatase 42 (34-104) Units/L Albumin 3.0 L (3.5-5.7) g/dL - Impressions Impressions Chest X-Ray 09/01/17 18:52 IMPRESSION: Low lung volume study. Increased linear opacities at the bases may reflect atelectasis and less likely infiltrate. D/ / 09/01/2017 20:01:04 Jean-Paul Hanley MD / [email or web address] Interpreting Provider: Jean-Paul Hanley MD Small Bowel X-Ray 09/02/17 10:35 IMPRESSION: Findings consistent with distal small-bowel obstruction. Follow-up KUB in 3 hours may be helpful for further evaluation These results were sent to results communications to be called to a license caregiver D/ / Tobias Mendez MD / Tobias Mendez MD Interpreting Provider: Tobias Mendez MD X-Ray 09/02/17 17:38 IMPRESSION: 1. Nasogastric tube with the distal tip in the proximal duodenum. 2. Distal small bowel obstruction. No transit of oral contrast from the small bowel follow-through earlier today beyond the point of obstruction. D/ / Ramiro Quick MD / Ramiro Quick MD Interpreting Provider: Ramiro Quick MD - Attending Attestation I examined this patient and my medical decision-making was reviewed with the Resident Physician on 09/02/17. I agree with the documented findings, disposition and treatment plan as described except to the extent set forth below. Ms Gomez is currently admitted for acute partial SBO. She remains moderate to high risk due to potential for worsening clinical status. Ms Gomez is having small bowel follow through today. She denies pain at this time. No nausea Exam Alert. Comfortable (at 1600) Mucus membranes dry Heart tachy Lungs diminished Abd distended I/P 1. Partial SBO 2. Tachycardia Further diagnoses and plan as above.
[2017-09-02] MEDS ORDERED: *HR* Metoprolol 5 MG/5 ML VIAL IVP PRN (17:09)
--- NOTE | 2017-09-02 19:46 | Electrocardiograph Report ---
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
[2017-09-02] MEDS ORDERED: Insulin LISPRO 300 UNITS/3 ML VIAL SQ SCH (21:00)
[2017-09-02] MEDS: Insulin DETEMIR 100 UNIT/ML X5UNITS SQ SCH (22:14)
[2017-09-03] MEDS: MetroNIDAZOLE 500 MG/100 ML 500 MG/100 ML BAG IVPB SCH ×3 (01:11→15:35)
[2017-09-03] MEDS: methylPREDNISolone 125 MG/2 ML VIAL IVP SCH ×3 (01:11→15:33)
[2017-09-03] MEDS: Levalbuterol Neb 1.25 MG/3 ML IH SCH ×2 (03:49→11:17)
[2017-09-03] MEDS: OXYCODONE Oral CONC 10 MG/0.5 ML ORAL.SYG SL PRN ×3 (04:31→17:29)
[2017-09-03] MEDS: *HR* LORazepam 2 MG/ML VIAL IVP PRN ×3 (04:33→17:28)
[2017-09-03 05:04] LABS: Basophils % 0.2 %; Hematocrit 38.8 % (35.3-44.9); Hemoglobin 12.5 g/dL (11.5-15.4); Immature Granulocytes % 1.2 % (0-4); Lymphocytes # 1.6 K/mcL (0.6-4.6); Lymphocytes % 14.1 %; Mean Corpuscular HGB Conc 32.2 g/dL (31.6-35.5); Mean Corpuscular Volume 86.8 fL (83.0-100.0); Mean Platelet Volume 10.1 fL (9.4-12.4); Monocytes # 0.6 K/mcL (0.0-1.3); Monocytes % 5.2 %; Neutrophils # 9.2 K/mcL (1.6-8.9); Platelet Count 320 K/mcL (140-400); Red Blood Count 4.47 M/mcL (3.82-4.97); Red Cell Distribution Width 14.7 % (11.5-14.5); Segmented Neutrophils % 79.3 %
[2017-09-03 05:18] LABS: Alanine Aminotransferase 12 Units/L (7-52); Albumin 2.8 g/dL (3.5-5.7); Albumin/Globulin Ratio 1.4 (1.1-2.2); Alkaline Phosphatase 39 Units/L (34-104); Aspartate Amino Transferase 14 Units/L (13-39); BUN/Creatinine Ratio 15 (6-26); Bilirubin,Total 0.3 mg/dL (0.3-1.0); Blood Urea Nitrogen 11 mg/dL (8-23); Calcium 8.4 mg/dL (8.6-10.3); Carbon Dioxide 36 mEq/L (23-29); Chloride 102 mEq/L (98-107); Glucose 82 mg/dL (70-105); Osmolality,Calculated 290 (280-300); Potassium 3.8 mEq/L (3.5-5.1); Sodium 141 mEq/L (136-145); Total Protein 4.8 g/dL (6.4-8.9); eGFR For African Americans > 60 (> 60); eGFR For Non-African Americans > 60 (> 60)
[2017-09-03] MEDS: *HR* Heparin 5,000 UNIT/ML VIAL SQ SCH ×2 (06:32→17:28)
[2017-09-03] MEDS: 0.9 % Sodium Chloride 1,000 ML IVC SCH ×2 (09:37→20:31)
[2017-09-03] MEDS: Pantoprazole 40 MG VIAL IVP SCH (09:37)
[2017-09-03] MEDS: Nystatin POWDER 30 GM BOTTLE TP SCH ×2 (09:38→20:31)
--- NOTE | 2017-09-03 10:21 | General Surgery Progress Note ---
Addendum entered and electronically signed by Susan Peña CNP 09/03/17 15:35: Correction- plan for exploratory laparotomy with possible SBR with Dr. Mixon Original Note: <Susan Peña - Last Filed: 09/03/17 13:19> Date of Encounter: 09/03/17 Time of Encounter: 09:30 - Assessment and Plan (1) Small bowel obstruction Current Visit: Yes Status: Acute SBFT shows no movement of contrast past the obstruction into the large bowel Follow-up KUB today shows no progression of contrast into the large bowel Patient with no flatus of bowel movements Continue bowel rest NG tube to LIWS IF fluids Supportive care and pain control Plan for exploratory laparotomy and possible small bowel resection with Dr. Rubio on 09/04/2017 (2) COPD (chronic obstructive pulmonary disease) Current Visit: Yes Status: Chronic Management per medicine service Qualifiers: COPD type: unspecified COPD Qualified Code(s): J44.9 - Chronic obstructive pulmonary disease, unspecified (3) Tobacco abuse Current Visit: Yes Status: Chronic (4) CAD (coronary artery disease) Current Visit: No Status: Chronic Management per medicine service Qualifiers: Coronary Disease-Associated Artery/Lesion type: [place] artery [place] vs. transplanted heart: [place] heart Associated angina: with unspecified angina Qualified Code(s): I25.119 - Atherosclerotic heart disease of [place] coronary artery with unspecified angina pectoris (5) Insulin dependent diabetes mellitus Current Visit: Yes Status: Chronic Management per medicine service BS- 138 today Subjective Patient reports: no new complaints, feels better (after NG tube placed), still having pain, pain is less, no flatus, no bowel movement, nausea, vomiting (with SBFT last evening (resolved with NG tube placement- 1650ml out)), afebrile Objective Vital Signs - Last 8 Hours Temp Pulse Resp BP Pulse Ox 09/03/17 06:47 98.1 F 103 128/69 94 09/03/17 04:00 98.6 F 98 18 122/70 100 09/03/17 03:49 16 98 Intake and Output 09/02/17 09/03/17 09/03/17 23:59 07:59 15:59 Intake Total 300 / 300 100 / 100 Output Total 1800 / 1800 225 / 225 Balance -1500 / -1500 -125 / -125 Intake: IV Fluids 300 / 300 100 / 100 Cipro Premix 400 MG/200 ML 400 200 / 200 mg In 200 ml @ 200 mls/hr IVPB Q12HR [facility] Rx#:[id number] Flagyl Premix 500 MG/100 ML 500 100 / 100 100 / 100 mg In 100 ml @ 100 mls/hr IVPB Q8HR [facility] Rx#:[id number] Oral 0 / 0 0 / 0 Output: Urine 150 / 150 Wound Drainage 1650 / 1650 225 / 225 NG Tube 1650 / 1650 225 / 225 Other: # Voids 0 0 Weight 70 kg Blood Glucose* 134 81 Patient Weight 09/03/17 23:59 Weight 70 kg - General physical appearance well developed, well nourished, no distress, moderate pain, obese - Eyes normal ocular movement - ENT dry mucosa, atraumatic, normocephalic - Neck Neck exam: trachea midline - Respiratory normal respiratory effort, clear to auscultation, other (diminished bibasilar bases) - Cardiovascular Cardiovascular exam: Present: RRR - Abdomen Abdomen: Present: soft, distended, tender (minimal, generalized tenderness), wound (NG tube to LIWS with bilious drainage noted) - Neurologic CN 2-12 grossly intact - Psychiatric oriented to time, oriented to person, oriented to place, speech is normal, memory intact - Labs 09/03/17 04:40 09/03/17 04:40 Diabetes panel 09/03/17 Range/Units 04:40 Sodium 141 (136-145) mEq/L Potassium 3.8 (3.5-5.1) mEq/L Chloride 102 (98-107) mEq/L Carbon Dioxide 36 H (23-29) mEq/L BUN 11 (8-23) mg/dL Creatinine 0.74 (0.60-1.20) mg/dL Glucose 82 (70-105) mg/dL Calcium 8.4 L (8.6-10.3) mg/dL AST 14 (13-39) Units/L ALT 12 (7-52) Units/L Alkaline Phosphatase 39 (34-104) Units/L Albumin 2.8 L (3.5-5.7) g/dL Calcium panel 09/03/17 Range/Units 04:40 Calcium 8.4 L (8.6-10.3) mg/dL Albumin 2.8 L (3.5-5.7) g/dL Pituitary panel 09/03/17 Range/Units 04:40 Sodium 141 (136-145) mEq/L Potassium 3.8 (3.5-5.1) mEq/L Chloride 102 (98-107) mEq/L Carbon Dioxide 36 H (23-29) mEq/L BUN 11 (8-23) mg/dL Creatinine 0.74 (0.60-1.20) mg/dL Glucose 82 (70-105) mg/dL Calcium 8.4 L (8.6-10.3) mg/dL Adrenal panel 09/03/17 Range/Units 04:40 Sodium 141 (136-145) mEq/L Potassium 3.8 (3.5-5.1) mEq/L Chloride 102 (98-107) mEq/L Carbon Dioxide 36 H (23-29) mEq/L BUN 11 (8-23) mg/dL Creatinine 0.74 (0.60-1.20) mg/dL Glucose 82 (70-105) mg/dL Calcium 8.4 L (8.6-10.3) mg/dL Total Bilirubin 0.3 (0.3-1.0) mg/dL AST 14 (13-39) Units/L ALT 12 (7-52) Units/L Alkaline Phosphatase 39 (34-104) Units/L Albumin 2.8 L (3.5-5.7) g/dL Consult Discharge Plan - Plan Referrals: Lisa Brown CNP [Primary Care Provider] - 09/08/17 2:15 pm Chelsey Guzman MD [Partnered Physician] - 09/11/17 2:15 pm Checo Albrecht DO [Partnered Physician] - 09/15/17 9:20 am Fermin Sanderson CNP [Advanced Practice Nurse] - 09/04/17 10:30 am - Attending Attestation For this encounter, I have reviewed the DYNAMO TENDER or PA documentation, treatment plan, and medical decision making; and I have had face to face time with this patient. <Jay Mixon - Last Filed: 09/03/17 16:27> Date of Encounter: 09/03/17 - Assessment and Plan (1) Partial small bowel obstruction Current Visit: Yes Status: Acute Objective Vital Signs - Last 8 Hours Temp Pulse Resp BP Pulse Ox 09/03/17 11:49 98.1 F 97 16 125/76 96 09/03/17 11:18 18 100 Intake and Output 09/03/17 09/03/17 09/03/17 07:59 15:59 23:59 Intake Total 100 / 100 100 / 100 Output Total 225 / 225 Balance -125 / -125 100 / 100 Intake: IV Fluids 100 / 100 100 / 100 Flagyl Premix 500 MG/100 ML 500 100 / 100 100 / 100 mg In 100 ml @ 100 mls/hr IVPB Q8HR [facility] Rx#:[id number] Oral 0 / 0 Output: Wound Drainage 225 / 225 NG Tube 225 / 225 Other: # Voids 0 1 Weight 70 kg Blood Glucose* 81 77 Patient Weight 09/03/17 23:59 Weight 70 kg - Labs 09/03/17 04:40 09/03/17 04:40 Diabetes panel 09/03/17 Range/Units 04:40 Sodium 141 (136-145) mEq/L Potassium 3.8 (3.5-5.1) mEq/L Chloride 102 (98-107) mEq/L Carbon Dioxide 36 H (23-29) mEq/L BUN 11 (8-23) mg/dL Creatinine 0.74 (0.60-1.20) mg/dL Glucose 82 (70-105) mg/dL Calcium 8.4 L (8.6-10.3) mg/dL AST 14 (13-39) Units/L ALT 12 (7-52) Units/L Alkaline Phosphatase 39 (34-104) Units/L Albumin 2.8 L (3.5-5.7) g/dL Calcium panel 09/03/17 Range/Units 04:40 Calcium 8.4 L (8.6-10.3) mg/dL Albumin 2.8 L (3.5-5.7) g/dL Pituitary panel 09/03/17 Range/Units 04:40 Sodium 141 (136-145) mEq/L Potassium 3.8 (3.5-5.1) mEq/L Chloride 102 (98-107) mEq/L Carbon Dioxide 36 H (23-29) mEq/L BUN 11 (8-23) mg/dL Creatinine 0.74 (0.60-1.20) mg/dL Glucose 82 (70-105) mg/dL Calcium 8.4 L (8.6-10.3) mg/dL Adrenal panel 09/03/17 Range/Units 04:40 Sodium 141 (136-145) mEq/L Potassium 3.8 (3.5-5.1) mEq/L Chloride 102 (98-107) mEq/L Carbon Dioxide 36 H (23-29) mEq/L BUN 11 (8-23) mg/dL Creatinine 0.74 (0.60-1.20) mg/dL Glucose 82 (70-105) mg/dL Calcium 8.4 L (8.6-10.3) mg/dL Total Bilirubin 0.3 (0.3-1.0) mg/dL AST 14 (13-39) Units/L ALT 12 (7-52) Units/L Alkaline Phosphatase 39 (34-104) Units/L Albumin 2.8 L (3.5-5.7) g/dL - Attending Attestation The patient seen and evaluated on afternoon rounds. Small bowel follow-through demonstrates no contrast through the colon even on delayed films. Findings are consistent with obstruction. Her abdomen is soft and nontender. The abdomen was well decompressed. If she does not develop clear evidence of bowel function will proceed with exploratory laparotomy and possible small bowel resection. Jay Mixon MD FACS
[2017-09-03] MEDS: Insulin LISPRO 300 UNITS/3 ML VIAL SQ SCH ×3 (11:04→17:40)
[2017-09-03] MEDS: Budesonide/Formoterol 160/4.5 MDI IH SCH ×2 (11:16→19:43)
[2017-09-03] MEDS ORDERED: Albuterol 2.5 MG/3 ML NEBULIZER IH PRN (15:37)
[2017-09-03] MEDS: *HR* Promethazine 25 MG/ML VIAL IVP PRN (15:39)
--- NOTE | 2017-09-03 16:22 | Internal Med Progress Note ---
<AldothadDar meek - Last Filed: 09/03/17 16:19> Date of Encounter: 09/03/17 Time of Encounter: 09:00 - Assessment and plan (1) Partial small bowel obstruction Current Visit: Yes Status: Acute Assessment and plan: Patient has abdominal distention, tenderness to light palpation, hypoactive bowel sounds, tympanic to palpation, nausea vomiting, absence of flatulence or bowel movements. 09/03/2017: no improvement in abdominal exam. Patient needed an NG tube placement after significant vomiting last evening with distended abdomen. notified general surgery. Plan: - Gen. surgery following concerns for small bowel obstruction - Small bowel follow-through concerning for distal SBO - Patient nothing by mouth - Awaiting further recommendations from general surgery (2) Tachycardia Current Visit: Yes Status: Acute Assessment and plan: Patient has a history of tachycardia, current heart rate roughly 130. - Home medication Coreg 3.125 twice a day - Currently not taking beta jose g as she is nothing by mouth prior to potential surgery. - Metoprolol 5 mg IV every 6 hours Scheduled with holding parameters. (3) Insulin dependent diabetes mellitus Current Visit: Yes Status: Chronic Assessment and plan: Known type 2 diabetes insulin-dependent. - Glucose well controlled, patient is nothing by mouth with possible SBO Plan: - reduced Levemir to 15 units subcutaneous at bedtime - Subcutaneous low-dose sliding scale - Before meals at bedtime glucose checks (4) CAD (coronary artery disease) Current Visit: No Status: Chronic Assessment and plan: Coronary artery disease, stable. EKG - sinus tachycardia, with no acute ischemic changes Qualifiers: Coronary Disease-Associated Artery/Lesion type: [place] artery [place] vs. transplanted heart: [place] heart Associated angina: with unspecified angina Qualified Code(s): I25.119 - Atherosclerotic heart disease of [place] coronary artery with unspecified angina pectoris (5) DVT prophylaxis Current Visit: No Status: Acute Assessment and plan: Subcutaneous Heparin. - Subjective Interval history: Ms. Gomez 62 year old female seen and evaluated at patient's bedside. Feels abdominal pain is slightly improved compared to yesterday after NG tube placement. Diminished vomiting as NG tube is on suction. She feels her abdomen is slightly less distended but continues to be tender, no further bowel movements or flatulence at this time. She is awaiting general surgery recommendations. - Constitutional Vitals: Temp Pulse Resp BP Pulse Ox 98.1 F 97 16 125/76 96 09/03/17 11:49 09/03/17 11:49 09/03/17 11:49 09/03/17 11:49 09/03/17 11:49 General appearance: Present: mild distress, A&O X 3, answers questions appropriately Exam: General: Patient alert, awake, oriented 3, interactive, in no acute distress HEENT: Normocephalic, atraumatic, pupils equal reactive to light, nasal cavity patent with NG tube in place, oral mucosa moist, neck supple trachea midline no palpable lymphadenopathy, no thyromegaly. Chest: Symmetric bilateral correlating with respiratory effort, effort nonlabored. Cardiac: Tachycardia, positive S1 and S2. no bruits appreciated bilateral carotids, Radial pulses 2+ bilateral, posterior tibial and dorsal pedal pulses 2 + bilateral. Respiratory: Clear to auscultation all lung burnham Abdomen: Abdomen distended, tender to light palpation, hypoactive to absent bowel sounds, tympanic, skin examination demonstrates old scars in the right upper quadrant and suprapubic region. Extremities: Symmetric bilateral, bilateral lower extremities without erythema or edema patient moving all 4 extremities spontaneously. Neurologic: No focal deficits appreciated on examination. Face symmetric, muscle strength symmetric bilateral upper and lower extremities. Internal Medicine: Result - Labs CBC & Chem 7: 09/03/17 04:40 09/03/17 04:40 Labs: Short CBC 09/03/17 Range/Units 04:40 WBC 11.5 H (4.3-11.1) K/mcL Hgb 12.5 (11.5-15.4) g/dL Hct 38.8 (35.3-44.9) % Plt Count 320 (140-400) K/mcL Neutrophils # 9.2 H (1.6-8.9) K/mcL BMP 09/03/17 04:40 Sodium 141 Potassium 3.8 Chloride 102 Carbon Dioxide 36 H BUN 11 Creatinine 0.74 Glucose 82 Calcium 8.4 L Liver Function 09/03/17 Range/Units 04:40 Total Bilirubin 0.3 (0.3-1.0) mg/dL AST 14 (13-39) Units/L ALT 12 (7-52) Units/L Alkaline Phosphatase 39 (34-104) Units/L Albumin 2.8 L (3.5-5.7) g/dL - Impressions Impressions KUB X-Ray 09/02/17 17:38 IMPRESSION: 1. Nasogastric tube with the distal tip in the proximal duodenum. 2. Distal small bowel obstruction. No transit of oral contrast from the small bowel follow-through earlier today beyond the point of obstruction. D/ / Ramiro Quick MD / Ramiro Quick MD Interpreting Provider: Ramiro Quick MD X-Ray 09/03/17 09:58 IMPRESSION: Dilated loops of small bowel containing contrast, with no contrast extension into the large bowel consistent with small bowel obstruction. No free air is identified. D/ / Jorge A Conklin MD / Jorge A Conklin MD Interpreting Provider: Jorge A Conklin MD Consult Discharge Plan - Plan Referrals: Lisa Brown CNP [Primary Care Provider] - 09/08/17 2:15 pm Chelsey Guzman MD [Partnered Physician] - 09/11/17 2:15 pm Checo Albrecht DO [Partnered Physician] - 09/15/17 9:20 am Fermin Sanderson CNP [Advanced Practice Nurse] - 09/04/17 10:30 am <Ej Bertrand - Last Filed: 09/03/17 18:39> Date of Encounter: 09/03/17 - Assessment and plan (1) Partial small bowel obstruction Current Visit: Yes Status: Acute (2) CAD (coronary artery disease) Current Visit: No Status: Chronic Qualifiers: Coronary Disease-Associated Artery/Lesion type: [place] artery [place] vs. transplanted heart: [place] heart Associated angina: without angina Qualified Code(s): I25.10 - Atherosclerotic heart disease of [place] coronary artery without angina pectoris (3) CKD (chronic kidney disease) stage 3, GFR 30-59 ml/min Current Visit: No Status: Chronic (4) Chronic respiratory failure Current Visit: No Status: Chronic Qualifiers: Respiratory failure complication: hypoxia Qualified Code(s): J96.11 - Chronic respiratory failure with hypoxia (5) Diabetes Current Visit: No Status: Chronic Qualifiers: Diabetes mellitus type: type 2 Diabetes mellitus complication status: with hyperglycemia Diabetes mellitus snf insulin use: with termite control representative use Qualified Code(s): E11.65 - Type 2 diabetes mellitus with hyperglycemia; Z79.4 - salvage determiner (current) use of insulin - Constitutional Vitals: Temp Pulse Resp BP Pulse Ox 98.1 F 97 16 125/76 96 09/03/17 11:49 09/03/17 11:49 09/03/17 11:49 09/03/17 11:49 09/03/17 11:49 Internal Medicine: Result - Labs CBC & Chem 7: 09/03/17 04:40 09/03/17 04:40 Labs: Short CBC 09/03/17 Range/Units 04:40 WBC 11.5 H (4.3-11.1) K/mcL Hgb 12.5 (11.5-15.4) g/dL Hct 38.8 (35.3-44.9) % Plt Count 320 (140-400) K/mcL Neutrophils # 9.2 H (1.6-8.9) K/mcL BMP 09/03/17 04:40 Sodium 141 Potassium 3.8 Chloride 102 Carbon Dioxide 36 H BUN 11 Creatinine 0.74 Glucose 82 Calcium 8.4 L Liver Function 09/03/17 Range/Units 04:40 Total Bilirubin 0.3 (0.3-1.0) mg/dL AST 14 (13-39) Units/L ALT 12 (7-52) Units/L Alkaline Phosphatase 39 (34-104) Units/L Albumin 2.8 L (3.5-5.7) g/dL - Impressions Impressions KUB X-Ray 09/02/17 17:38 IMPRESSION: 1. Nasogastric tube with the distal tip in the proximal duodenum. 2. Distal small bowel obstruction. No transit of oral contrast from the small bowel follow-through earlier today beyond the point of obstruction. D/ / Ramiro Quick MD / Ramiro Quick MD Interpreting Provider: Ramiro Quick MD X-Ray 09/03/17 09:58 IMPRESSION: Dilated loops of small bowel containing contrast, with no contrast extension into the large bowel consistent with small bowel obstruction. No free air is identified. D/ / Jorge A Conklin MD / Jorge A Conklin MD Interpreting Provider: Jorge A Conklin MD - Attending Attestation I examined this patient and my medical decision-making was reviewed with the Resident Physician on 09/03/17. I agree with the documented findings, disposition and treatment plan as described except to the extent set forth below. Ms Gomez is currently admitted for small bowel obstruction. She remains moderate to high risk due to potential for worsening clinical status. Ms Gomez is hungry. NG has helped her nausea and vomiting. No fever. Pain still present. Exam alert> Comfortable Mucus membranes dry Heart distant Lungs diminished Abd soft and distended I/P 1. Probable SBO - per surgery 2. DM Further diagnoses and plan as above.
[2017-09-03] MEDS ORDERED: OXYCODONE Oral CONC 10 MG/0.5 ML ORAL.SYG SL PRN (17:46)
[2017-09-03] MEDS: *HR* Metoprolol 5 MG/5 ML VIAL IVP SCH (17:47)
--- NOTE | 2017-09-03 19:39 | Anesthesia Evaluation PreOp ---
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 DESIGN ASSISTANT History: Denies Any Significant HX Other Medical History: Hepatic (non-alcoholic fatty liver), Renal (stage 3 CKD) , Diabetes Type II, GERD, Other (anxiety/bipolar depression) Anesthesia History: No Prior Anesthetic Complications, Past Anesthesia Alcohol Use: rarely Drug use: none Medications and Allergies Aspirin [Adult Low Dose Aspirin EC] 81 mg PO DAILY 04/18/15 [History] Budesonide/Formoterol 160/4.5 [Symbicort 160/4.5] 2 puff IH BIDR 04/18/15 [ History] Buspirone HCl [Buspar] 15 mg PO HS 04/18/15 [History] Carvedilol [Coreg] 3.125 mg PO BIDWM 04/18/15 [History] Roflumilast [Daliresp] 500 mcg PO DAILY 04/18/15 [History] Simvastatin [Zocor] 20 mg PO DAILY 04/18/15 [History] Calcium Polycarbophil [Fibercon] 625 mg PO QID PRN 08/02/15 [History] Albuterol Sulfate [Ventolin Hfa] 18 gm IH Q4H PRN 03/26/16 [History] Insulin ASPART [Novolog Flexpen] 2 - 14 unit SQ TID 03/26/16 [History] Ipratropium/Albuterol Neb [Duoneb] 3 ml IH Q4-6H PRN 03/26/16 [History] Oxygen 2 - 3 each NS CONT 03/26/16 [History] Potassium Chloride [Klor-Con] 20 meq PO DAILY 03/26/16 [History] Nitroglycerin [Nitrostat] 0.4 mg SL Q5M PRN 06/27/16 [History] Ranolazine [Ranexa] 1,000 mg PO BID 06/27/16 [History] Rizatriptan Benzoate [Maxalt] 10 mg PO ONCE PRN 09/19/16 [History] Simethicone [Gas-X] 80 mg PO QID 09/19/16 [History] Linagliptin [Tradjenta] 5 mg PO DAILY 04/28/17 [History] Promethazine [Phenergan] 12.5 mg PO Q8HR PRN 04/28/17 [History] Fluticasone Propionate Nasal [Flonase] 50 mcg NS DAILY bottle 04/30/17 [Rx] Escitalopram [Lexapro] 20 mg PO DAILY 09/01/17 [History] Insulin Degludec [Tresiba Flextouch U-100] 36 unit SQ QPM 09/01/17 [History] 3 Allergy/AdvReac Type Severity Reaction Status Date / Time atorvastatin [From Lipitor] Allergy Swelling Verified 05/22/17 12:15 of Lip/Tongue/Throat bupropion [From Wellbutrin] Allergy Swelling Verified 05/22/17 12:15 of Lip/Tongue/Throat glimepiride Allergy Swelling Verified 05/22/17 12:15 of Lip/Tongue/Throat isosorbide [From Imdur] Allergy Swelling Verified 05/22/17 12:15 of Lip/Tongue/Throat lurasidone [From Latuda] Allergy Swelling Verified 05/22/17 12:15 of Lip/Tongue/Throat metformin Allergy Swelling Verified 05/22/17 12:15 of Lip/Tongue/Throat metoclopramide [From Reglan] Allergy Swelling Verified 05/22/17 12:15 of Lip/Tongue/Throat Penicillins Allergy Anaphylaxis Verified 05/22/17 12:15 prednisone Allergy Swelling Verified 05/22/17 12:15 of Lip/Tongue/Throat aspirin AdvReac Nausea Verified 05/22/17 12:15 clopidogrel [From Plavix] AdvReac Swelling Verified 05/22/17 12:15 of Lip/Tongue/Throat codeine AdvReac Nausea Verified 05/22/17 12:15 fluticasone AdvReac Swelling Verified 05/22/17 12:15 [From Advair Diskus] of Lip/Tongue/Throat hydrocodone [From [place]] AdvReac Swelling Verified 05/22/17 12:15 of Lip/Tongue/Throat Pertussis Vaccine,Adsorbed AdvReac Swelling Verified 05/22/17 12:15 of Lip/Tongue/Throat risperidone AdvReac Swelling Verified 05/22/17 12:15 of Lip/Tongue/Throat salmeterol AdvReac Swelling Verified 05/22/17 12:15 [From Advair Diskus] of Lip/Tongue/Throat tiotropium AdvReac Swelling Verified 05/22/17 12:15 [From Spiriva with of HandiHaler] Lip/Tongue/Throat venom-honey bee AdvReac Swelling Verified 05/22/17 12:15 [bee venom (honey bee)] of Lip/Tongue/Throat - Meds/Allergy Pre-op Review Medications Reviewed: Yes Allergies Reviewed: Yes Beta Blockers on Current Med List: Yes Anesthesia Results - Labs 09/03/17 04:40 09/03/17 04:40 - Imaging EKG: report reviewed (08/30/2017 SINUS TACHYCARDIA WITH SHORT MA INTERVAL) Additional studies: 03/26/2016 LEFT HEART CATH IV Doppler BLD Flow 1st Vessel Iliac angiogram Indications: Unstable Angina Impressions: There is moderate one vessel coronary artery disease by FFR. The left ventricle is normal and has normal contractility EF 60% Recommendations: Optimal medical therapy of patient's disease. Aggressive risk factor modification. 04/04/2015 Stress Impressions: Stress ECG was indeterminate for ischemia due to failure to achieve target heart rate. Patient exercised for 2 minutes 40 seconds, achieving 67% MPHR. Exercise capacity was poor, achieving 2.3 METS. No arrhythmias noted with stress. Blunted blood pressure response probably due to deconditioning. Patient had no chest pain with stress. 04/04/2015 Echo Impressions: Limited echo for LV function. LVEF 60-65%. Normal left ventricular size and systolic function. Mildly enlarged left atrial size. Normal right ventricular size and function. Normal right atrial size. Anesthesia Exam Vital Signs/O2 Sat/Glucose, Most Recent Temp Pulse Resp BP Pulse Ox 98.1 F 97 16 125/76 96 09/03/17 11:49 09/03/17 11:49 09/03/17 11:49 09/03/17 11:49 09/03/17 11:49 Blood Glucose* 77 Height: 4'7''/1.4 m Weight: 154 lbs/70 kg NPO (# of Hours): 8 Pain Scale: 9 (abdomen) Pain Scale Used: Numeric (1 - 10) - HEENT Pupil (Motor): EOMI Mallampati: III Teeth: Edentulous Oral Opening: Greater than 3 - GRAPHIC DESIGN ASSISTANT LOC: Oriented GRAPHIC DESIGN ASSISTANT Motor: Normal RUE, Normal LUE, Normal RLE, Normal LLE, Normal Face GRAPHIC DESIGN ASSISTANT Sensory: Normal: RUE, LUE, RLE, LLE, Face - Cardiac Rhythm: Regular Murmur: None - Pulmonary Breath Sounds: bilateral Clear Respiratory Effort: Symmetrical Anesthesia Assess/Plan ASA Score: 4 Modified Leatha Scale for Level of Consciousness: Cooperative, oriented, and tranquil Anesthetic Plan: General Monitoring Plan: Standard Monitors Recovery Plan: PACU
[2017-09-03] MEDS ORDERED: Insulin DETEMIR 100 UNIT/ML X5UNITS SQ SCH (21:00)
[2017-09-04] MEDS: methylPREDNISolone 125 MG/2 ML VIAL IVP SCH ×4 (00:14→23:19)
[2017-09-04] MEDS: Insulin LISPRO 300 UNITS/3 ML VIAL SQ SCH ×3 (00:14→14:37)
[2017-09-04] MEDS: MetroNIDAZOLE 500 MG/100 ML 500 MG/100 ML BAG IVPB SCH ×4 (00:15→23:18)
[2017-09-04] MEDS: *HR* LORazepam 2 MG/ML VIAL IVP PRN ×3 (00:16→23:33)
[2017-09-04] MEDS: OXYCODONE Oral CONC 10 MG/0.5 ML ORAL.SYG SL PRN ×3 (00:16→23:17)
[2017-09-04] MEDS: *HR* Metoprolol 5 MG/5 ML VIAL IVP SCH ×4 (00:37→23:18)
[2017-09-04] MEDS: *HR* Heparin 5,000 UNIT/ML VIAL SQ SCH (06:24)
[2017-09-04 06:56] LABS: Basophils % 0.1 %; Hematocrit 35.7 % (35.3-44.9); Hemoglobin 11.4 g/dL (11.5-15.4); Immature Granulocytes % 1.1 % (0-4); Lymphocytes # 1.1 K/mcL (0.6-4.6); Lymphocytes % 12.2 %; Mean Corpuscular HGB Conc 31.9 g/dL (31.6-35.5); Mean Corpuscular Hemoglobin 28.1 pg (28.0-33.3); Mean Corpuscular Volume 88.1 fL (83.0-100.0); Mean Platelet Volume 10.1 fL (9.4-12.4); Monocytes # 0.4 K/mcL (0.0-1.3); Monocytes % 4.3 %; Neutrophils # 7.5 K/mcL (1.6-8.9); Platelet Count 262 K/mcL (140-400); Red Blood Count 4.05 M/mcL (3.82-4.97); Red Cell Distribution Width 14.8 % (11.5-14.5); Segmented Neutrophils % 82.3 %
[2017-09-04 07:10] LABS: Alanine Aminotransferase 10 Units/L (7-52); Albumin 2.5 g/dL (3.5-5.7); Albumin/Globulin Ratio 1.4 (1.1-2.2); Alkaline Phosphatase 31 Units/L (34-104); Aspartate Amino Transferase 14 Units/L (13-39); BUN/Creatinine Ratio 17 (6-26); Bilirubin,Total 0.2 mg/dL (0.3-1.0); Blood Urea Nitrogen 12 mg/dL (8-23); Calcium 7.5 mg/dL (8.6-10.3); Carbon Dioxide 33 mEq/L (23-29); Chloride 108 mEq/L (98-107); Globulin 1.8 g/dL (2.4-3.5); Glucose 67 mg/dL (70-105); Osmolality,Calculated 296 (280-300); Potassium 3.5 mEq/L (3.5-5.1); Sodium 144 mEq/L (136-145); Total Protein 4.3 g/dL (6.4-8.9); eGFR For African Americans > 60 (> 60); eGFR For Non-African Americans > 60 (> 60)
[2017-09-04] MEDS: Budesonide/Formoterol 160/4.5 MDI IH SCH ×2 (08:10→23:19)
[2017-09-04] MEDS: Nystatin POWDER 30 GM BOTTLE TP SCH ×2 (08:31→22:05)
[2017-09-04] MEDS: Pantoprazole 40 MG VIAL IVP SCH (08:32)
--- NOTE | 2017-09-04 14:49 | Internal Med Progress Note ---
<AldothadfantasmaDar Deal - Last Filed: 09/04/17 14:47> Date of Encounter: 09/04/17 Time of Encounter: 07:30 - Assessment and plan (1) Partial small bowel obstruction Current Visit: Yes Status: Acute Assessment and plan: Patient has abdominal distention, tenderness to light palpation, hypoactive bowel sounds, tympanic to palpation, nausea vomiting, absence of flatulence or bowel movements. 09/03/2017: no improvement in abdominal exam. Patient needed an NG tube placement after significant vomiting last evening with distended abdomen. notified general surgery. 09/04: No improvement or change in belly exam, plans for surgery today. Plan: - Gen. surgery following concerns for small bowel obstruction - Small bowel follow-through concerning for distal SBO - Patient nothing by mouth - Plans for abdominal surgery today. (2) Tachycardia Current Visit: Yes Status: Acute Assessment and plan: Patient has a history of tachycardia, current heart rate roughly 130. - Home medication Coreg 3.125 twice a day - Currently not taking beta jose g as she is nothing by mouth prior to potential surgery. - Metoprolol 5 mg IV every 6 hours Scheduled with holding parameters. (3) Insulin dependent diabetes mellitus Current Visit: Yes Status: Chronic Assessment and plan: Known type 2 diabetes insulin-dependent. - Glucose well controlled, patient is nothing by mouth with possible SBO Plan: - reduced Levemir to 15 units subcutaneous at bedtime - Subcutaneous low-dose sliding scale - Before meals at bedtime glucose checks (4) CAD (coronary artery disease) Current Visit: No Status: Chronic Assessment and plan: Coronary artery disease, stable. EKG - sinus tachycardia, with no acute ischemic changes Qualifiers: Coronary Disease-Associated Artery/Lesion type: [place] artery [place] vs. transplanted heart: [place] heart Associated angina: without angina Qualified Code(s): I25.10 - Atherosclerotic heart disease of [place] coronary artery without angina pectoris (5) DVT prophylaxis Current Visit: No Status: Acute Assessment and plan: Subcutaneous Heparin. - Subjective Interval history: Ms. Gomez 62 year old female seen and evaluated at patient's bedside. She states that she is feeling hungry would like to take in oral food understand that she is going to have surgery today and needs to be nothing by mouth. Had long discussion regarding not taking her home insulin as we need to monitor her glucose and correct accordingly. She is agreeable. She has no other concerns at this time and looking forward to surgery. - Constitutional Vitals: Temp Pulse Resp BP Pulse Ox 97.8 F 81 18 139/80 86 09/04/17 14:43 09/04/17 14:43 09/04/17 14:43 09/04/17 14:43 09/04/17 11:00 General appearance: Present: mild distress, A&O X 3, answers questions appropriately Exam: General: Patient alert, awake, oriented 3, interactive, in no acute distress HEENT: Normocephalic, atraumatic, pupils equal reactive to light, nasal cavity patent with NG tube in place, oral mucosa moist, neck supple trachea midline no palpable lymphadenopathy, no thyromegaly. Chest: Symmetric bilateral correlating with respiratory effort, effort nonlabored. Cardiac: Tachycardia, positive S1 and S2. no bruits appreciated bilateral carotids, Radial pulses 2+ bilateral, posterior tibial and dorsal pedal pulses 2 + bilateral. Respiratory: Clear to auscultation all lung burnham Abdomen: Abdomen distended, tender to light palpation, hypoactive to absent bowel sounds, tympanic, skin examination demonstrates old scars in the right upper quadrant and suprapubic region. Extremities: Symmetric bilateral, bilateral lower extremities without erythema or edema patient moving all 4 extremities spontaneously. Neurologic: No focal deficits appreciated on examination. Face symmetric, muscle strength symmetric bilateral upper and lower extremities. Internal Medicine: Result - Labs CBC & Chem 7: 09/04/17 06:35 09/04/17 06:35 Labs: Short CBC 09/04/17 Range/Units 06:35 WBC 9.1 (4.3-11.1) K/mcL Hgb 11.4 L (11.5-15.4) g/dL Hct 35.7 (35.3-44.9) % Plt Count 262 (140-400) K/mcL Neutrophils # 7.5 (1.6-8.9) K/mcL BMP 09/04/17 06:35 Sodium 144 Potassium 3.5 Chloride 108 H Carbon Dioxide 33 H BUN 12 Creatinine 0.72 Glucose 67 L Calcium 7.5 L Liver Function 09/04/17 Range/Units 06:35 Total Bilirubin 0.2 L (0.3-1.0) mg/dL AST 14 (13-39) Units/L ALT 10 (7-52) Units/L Alkaline Phosphatase 31 L (34-104) Units/L Albumin 2.5 L (3.5-5.7) g/dL Consult Discharge Plan - Plan Referrals: Lisa Brown CNP [Primary Care Provider] - 09/08/17 2:15 pm Chelsey Guzman MD [Partnered Physician] - 09/11/17 2:15 pm Checo Albrecht DO [Partnered Physician] - 09/15/17 9:20 am Fermin Sanderson CNP [Advanced Practice Nurse] - 09/04/17 10:30 am <Ej Bertrand - Last Filed: 09/04/17 16:47> Date of Encounter: 09/04/17 - Assessment and plan (1) Partial small bowel obstruction Current Visit: Yes Status: Acute (2) CAD (coronary artery disease) Current Visit: No Status: Chronic Qualifiers: Coronary Disease-Associated Artery/Lesion type: [place] artery [place] vs. transplanted heart: [place] heart Associated angina: without angina Qualified Code(s): I25.10 - Atherosclerotic heart disease of [place] coronary artery without angina pectoris (3) CKD (chronic kidney disease) stage 3, GFR 30-59 ml/min Current Visit: No Status: Chronic (4) Chronic respiratory failure Current Visit: No Status: Chronic Qualifiers: Respiratory failure complication: hypoxia Qualified Code(s): J96.11 - Chronic respiratory failure with hypoxia (5) Diabetes Current Visit: No Status: Chronic Qualifiers: Diabetes mellitus type: type 2 Diabetes mellitus complication status: with hyperglycemia Diabetes mellitus talent solutions manager insulin use: with skilled nursing use Qualified Code(s): E11.65 - Type 2 diabetes mellitus with hyperglycemia; Z79.4 - shot blaster (current) use of insulin - Constitutional Vitals: Temp Pulse Resp BP Pulse Ox 97.8 F 81 18 139/80 86 09/04/17 14:43 09/04/17 14:43 09/04/17 14:43 09/04/17 14:43 09/04/17 11:00 Internal Medicine: Result - Labs CBC & Chem 7: 09/04/17 06:35 09/04/17 06:35 Labs: Short CBC 09/04/17 Range/Units 06:35 WBC 9.1 (4.3-11.1) K/mcL Hgb 11.4 L (11.5-15.4) g/dL Hct 35.7 (35.3-44.9) % Plt Count 262 (140-400) K/mcL Neutrophils # 7.5 (1.6-8.9) K/mcL BMP 09/04/17 06:35 Sodium 144 Potassium 3.5 Chloride 108 H Carbon Dioxide 33 H BUN 12 Creatinine 0.72 Glucose 67 L Calcium 7.5 L Liver Function 09/04/17 Range/Units 06:35 Total Bilirubin 0.2 L (0.3-1.0) mg/dL AST 14 (13-39) Units/L ALT 10 (7-52) Units/L Alkaline Phosphatase 31 L (34-104) Units/L Albumin 2.5 L (3.5-5.7) g/dL - Attending Attestation I examined this patient and my medical decision-making was reviewed with the Resident Physician on 09/04/17. I agree with the documented findings, disposition and treatment plan as described except to the extent set forth below. Ms Gomez is currently admitted for presumed SBO. She is to go to OR today. She remains moderate to high risk due to potential for worsening clinical status. Ms Gomez feels OK at this time. No fever. Blood sugar has been up and down. Has had some tachycardic episodes as well. Exam Alert> Comfortable at this time Mucus membranes dry Heart tachy but regular Lungs clear Abd distended I/P 1. Probable SBO 2. DM Anticipate surgery later today. Further diagnoses and plan as above.
[2017-09-04] MEDS ORDERED: *HR* FentaNYL (PF) 100 MCG/2 ML VIAL ONE (16:09)
[2017-09-04] MEDS ORDERED: *HR* Rocuronium Bromide 50 MG/5 ML VIAL ONE (16:10)
[2017-09-04] MEDS ORDERED: *HR* Succinylcholine 200 MG/10 ML VIAL IVP ONE (16:10)
[2017-09-04] MEDS ORDERED: *HR* Midazolam HCl 2 MG/2 ML VIAL ONE (16:10)
[2017-09-04] MEDS ORDERED: *HR* Propofol 200 MG/20 ML VIAL IVP ONE (16:10)
[2017-09-04] MEDS ORDERED: Lidocaine -MPF 2% 2 ML VIAL ONE (16:10)
[2017-09-04] MEDS ORDERED: CefOXitin 1,000 MG VIAL ONE (16:36)
[2017-09-04] MEDS ORDERED: Clindamycin 900 MG/50 ML 900 MG/50 ML IV.SOLN IVPB ONE (16:49)
[2017-09-04] MEDS ORDERED: Ondansetron 4 MG/2 ML VIAL IVP ONE ×2 (17:22→19:29)
[2017-09-04] MEDS ORDERED: *HR* OxyCODONE Immed Rel 5 MG TABLET PO PRN (17:22)
[2017-09-04] MEDS ORDERED: Acetaminophen IV 1,000 MG/100 ML INFUS..BTL IVPB ONE ×2 (17:22→19:29)
[2017-09-04] MEDS ORDERED: Neostigmine Methylsulfate 3 MG/3 ML SYRINGE ONE (17:27)
--- NOTE | 2017-09-04 17:35 | Operative Note ---
Date of procedure: 09/04/17 Pre-op diagnosis: Small bowel obstruction, adhesions Post-op diagnosis: same Procedure: Exploratory laparotomy lysis of adhesions Anesthesia: TERRELL Surgeon: Jay Mixon Was there an commercial assistant present: Yes Dye Lab Technician: Kami Almanzar Estimated blood loss (cc): 20 Specimen: None Condition: stable Disposition: PACU Procedure in Detail: After informed consent patient was taken to the major operative suite placed in supine position given adequate general endotracheal anesthesia. Timeout was taken. The patient was identified. A vertical midline incision in the abdomen. The patient had 2 major areas of adhesions. The first area was to the anterior abdominal wall residential between the umbilicus and the pubis. His adhesions were lysed. The second group of adhesions were the right lower quadrant. There were 2-3 loops of small bowel adhesed for the cecum. I lysed these adhesions. Or in the small bowel from ligament of Treitz to the cecum there were no areas of obstruction. I ran second time area and there was no areas of injury. The obstruction was relieved. Abdomen was irrigated with copious amounts en bloc containing solution. Midline was closed with 0 PDS. Skin was closed with interrupted Vicryl and skin clips
[2017-09-04] MEDS ORDERED: Ketamine *HR* 500 MG/10 ML MDV ONE (17:56)
[2017-09-04] MEDS: *HR* Promethazine 25 MG/ML VIAL IVP PRN ×2 (17:57→18:13)
[2017-09-04] MEDS: MORPHINE SUL Oral CONC 10 MG/0.5 ML ORAL.SYG SL PRN ×2 (18:21→18:26)
[2017-09-04] MEDS ORDERED: *HR* Ropivacaine/PF 0.5% 20 ML VIAL ONE (18:44)
--- NOTE | 2017-09-04 19:21 | Anesthesia Evaluation Post Op ---
Date of Encounter: 09/04/17 Time of Encounter: 19:20 - Vital Signs Vital Signs: Last Vital Signs Temp 98.5 F 09/04/17 18:42 Pulse 80 09/04/17 18:57 Resp 24 09/04/17 18:57 BP 135/93 09/04/17 18:57 Pulse Ox 91 09/04/17 18:57 - Lungs Lungs: Clear Ascult./Percussion - Airway Airway: Non-obstructed - Cardiovascular Regular Rate - Mental Status Mental Status: Alert & Oriented, Answers Appropriately - Pain Pain Scale: 4 - Nausea Vomiting Nausea Vomiting: Responds to treatment with IV Meds - Hydration Hydration: NPO - Discharge PostOp Status: Transfer Patient to floor
--- NOTE | 2017-09-04 19:27 | Anesthesia Procedures ---
Date of Encounter: 09/04/17 Time of Encounter: 19:25 Procedures: Anesthesia - Nerve Block Procedure Date: 09/04/17 Time: : Checklist: Correct Patient Identifier, Correct procedure, History checked Supplemental Oxygen via Nasal Cannula (L/min): 3 Indication: Post Op Analgesia Pre-op Neuro Deficits: No Block Type: Other (Bilateral mid-axillary line TAP block; R sided subcostal TAP block) Catheter placed: No Sterile Technique: Yes Ultrasound used: Yes Anatomy identified: Yes Visual spread of Local: Yes Neuro Stimulation: No Blood on Needle Aspiration: No Smooth Injection of Local: Yes Prep: Chlorhexadine Needle: 21 x 100 mm Stimuplex Local: Ropivacaine (60mL of 0.25% ropivicaine ) Number of Attempts: 1 Complications: None/effective block Vitals: Please see Anabel CAMACHO's electronic records for VS entry
[2017-09-04] MEDS ORDERED: Dextrose Gel 15 GM/37.5 ML TUBE PO PRN ×2 (19:29)
[2017-09-04] MEDS ORDERED: *HR* Dextrose 50 % in Water (Syg) 50 ML SYRINGE IVP PRN (19:29)
[2017-09-04] MEDS ORDERED: Naloxone 0.4 MG/ML INJ IVP PRN (19:29)
[2017-09-04] MEDS ORDERED: Benzonatate 100 MG CAPSULE PO PRN (19:29)
[2017-09-04] MEDS ORDERED: D5% in Water 1,000 ML IVC PRN (19:29)
[2017-09-05] MEDS: Insulin LISPRO 300 UNITS/3 ML VIAL SQ SCH ×3 (01:07→12:17)
[2017-09-05] MEDS: *HR* Heparin 5,000 UNIT/ML VIAL SQ SCH ×2 (06:46→18:36)
[2017-09-05] MEDS: *HR* LORazepam 2 MG/ML VIAL IVP PRN ×3 (06:46→23:49)
[2017-09-05] MEDS: *HR* Metoprolol 5 MG/5 ML VIAL IVP SCH ×4 (06:47→23:49)
[2017-09-05] MEDS: Pantoprazole 40 MG VIAL IVP SCH (06:47)
[2017-09-05] MEDS: OXYCODONE Oral CONC 10 MG/0.5 ML ORAL.SYG SL PRN ×4 (06:47→20:14)
[2017-09-05] MEDS: Budesonide/Formoterol 160/4.5 MDI IH SCH ×2 (08:10→21:42)
--- NOTE | 2017-09-05 09:03 | Internal Med Progress Note ---
<AldothadfantasmaDar Deal - Last Filed: 09/05/17 17:24> Date of Encounter: 09/05/17 Time of Encounter: 09:02 - Assessment and plan (1) Partial small bowel obstruction Current Visit: Yes Status: Acute Assessment and plan: Patient has abdominal distention, tenderness to light palpation, hypoactive bowel sounds, tympanic to palpation, nausea vomiting, absence of flatulence or bowel movements. 09/03/2017: no improvement in abdominal exam. Patient needed an NG tube placement after significant vomiting last evening with distended abdomen. notified general surgery. 09/04: No improvement or change in belly exam, plans for surgery today. 09/05: Post op day, lysing of adhesions. Patient stable. Plan: - Gen. surgery following appreciate recommendations on advancing diet and post surgical care. (2) Tachycardia Current Visit: Yes Status: Acute Assessment and plan: Patient has a history of tachycardia, current heart rate roughly 130. - Home medication Coreg 3.125 twice a day - Currently not taking beta jose g as she is nothing by mouth prior to potential surgery. - Metoprolol 5 mg IV every 6 hours Scheduled with holding parameters. (3) Insulin dependent diabetes mellitus Current Visit: Yes Status: Chronic Assessment and plan: Known type 2 diabetes insulin-dependent. - Glucose well controlled, patient is nothing by mouth with possible SBO Plan: - Held Levemir - Subcutaneous low-dose sliding scale - Before meals at bedtime glucose checks (4) CAD (coronary artery disease) Current Visit: No Status: Chronic Assessment and plan: Coronary artery disease, stable. EKG - sinus tachycardia, with no acute ischemic changes Qualifiers: Coronary Disease-Associated Artery/Lesion type: [place] artery [place] vs. transplanted heart: [place] heart Associated angina: without angina Qualified Code(s): I25.10 - Atherosclerotic heart disease of [place] coronary artery without angina pectoris (5) DVT prophylaxis Current Visit: No Status: Acute Assessment and plan: Subcutaneous Heparin. - Subjective Interval history: Ms. Gomez 62 year old female seen and evaluated at patient's bedside. She tolerated her surgery yesterday and tolerating her NG tube. No BM or flatulents as of yet. No new complaints at this time. - Constitutional Vitals: Temp Pulse Resp BP Pulse Ox 98.9 F 101 18 132/85 100 09/05/17 07:18 09/05/17 07:18 09/05/17 08:10 09/05/17 07:18 09/05/17 08:10 General appearance: Present: mild distress, A&O X 3, answers questions appropriately Exam: General: Patient alert, awake, oriented 3, interactive, in no acute distress HEENT: Normocephalic, atraumatic, pupils equal reactive to light, nasal cavity patent with NG tube in place, oral mucosa moist, neck supple trachea midline no palpable lymphadenopathy, no thyromegaly. Chest: Symmetric bilateral correlating with respiratory effort, effort nonlabored. Cardiac: Tachycardia, positive S1 and S2. no bruits appreciated bilateral carotids, Radial pulses 2+ bilateral, posterior tibial and dorsal pedal pulses 2 + bilateral. Respiratory: Clear to auscultation all lung [place] Abdomen: Abdomen distended, mild tenderness to light palpation, absent bowel sounds, tympanic, post surgical sites healing well without drainage. Extremities: Symmetric bilateral, bilateral lower extremities without erythema or edema patient moving all 4 extremities spontaneously. Neurologic: No focal deficits appreciated on examination. Face symmetric, muscle strength symmetric bilateral upper and lower extremities. Internal Medicine: Result - Labs CBC & Chem 7: 09/04/17 06:35 09/04/17 06:35 - VTE Documentation of Mechanical Device: Intermittent pneumatic compression device Consult Discharge Plan - Plan Referrals: Lisa Brown CNP [Primary Care Provider] - 09/08/17 2:15 pm Chelsey Guzman MD [Partnered Physician] - 09/11/17 2:15 pm Checo Albrecht DO [Partnered Physician] - 09/15/17 9:20 am Fermin Sanderson CNP [Advanced Practice Nurse] - 09/04/17 10:30 am <Ej Bertrand - Last Filed: 09/05/17 17:56> Date of Encounter: 09/05/17 - Assessment and plan (1) Small bowel obstruction due to postoperative adhesions Current Visit: Yes Status: Acute (2) Adhesion of intestine Current Visit: Yes Status: Acute (3) CAD (coronary artery disease) Current Visit: No Status: Chronic Qualifiers: Coronary Disease-Associated Artery/Lesion type: [place] artery [place] vs. transplanted heart: [place] heart Associated angina: without angina Qualified Code(s): I25.10 - Atherosclerotic heart disease of [place] coronary artery without angina pectoris (4) CKD (chronic kidney disease) stage 3, GFR 30-59 ml/min Current Visit: No Status: Chronic (5) Chronic respiratory failure Current Visit: No Status: Chronic Qualifiers: Respiratory failure complication: hypoxia Qualified Code(s): J96.11 - Chronic respiratory failure with hypoxia (6) Diabetes Current Visit: No Status: Chronic Qualifiers: Diabetes mellitus type: type 2 Diabetes mellitus complication status: with hyperglycemia Diabetes mellitus 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 I agree with the documented findings, disposition and treatment plan as described except to the extent set forth below. Ms Gomez is currently admitted due to acute SBO due to adhesions. She is s/p surgery yesterday. She remains moderate to high risk due to potential for worsening clinical status. Ms Gomez is resting. She is tolerating NG. No BM yet. No fever or chills. Exam alert Comfortable Mucus membranes dry Heart reg Lungs clear anteriorly I/P 1. SBO due to adhesions s/p surgery 2. DM Further diagnoses and plan as above.
[2017-09-05] MEDS: methylPREDNISolone 125 MG/2 ML VIAL IVP SCH ×3 (09:58→23:48)
[2017-09-05] MEDS: MetroNIDAZOLE 500 MG/100 ML 500 MG/100 ML BAG IVPB SCH ×3 (09:59→23:48)
[2017-09-05] MEDS: Chloraseptic Spray 177 ML BOTTLE MM PRN ×3 (09:59→19:28)
--- NOTE | 2017-09-05 12:16 | General Surgery Progress Note ---
<Makenzie Pereira - Last Filed: 09/05/17 12:13> Date of Encounter: 09/05/17 Time of Encounter: 07:00 - Assessment and Plan (1) Small bowel obstruction Current Visit: Yes Status: Acute Date of procedure: 09/04/17 Pre-op diagnosis: Small bowel obstruction, adhesions Post-op diagnosis: same Procedure: Exploratory laparotomy lysis of adhesions Anesthesia: LUHA Surgeon: Jay Mixon POD #1 as above; abdominal exam is as expected. She has had 550 ML's out in her NG tube since surgery. Her surgical dressing is within normal limits. Plan: supportive care and discomfort management while awaiting the return of bowel function NPO except ice chips for pleasure NG tube though intermittent wall suction IV fluid management per primary team continue G.I. and DVT prophylaxis consult PT/OT for mobilization as patient is reluctant to get out of bed today. She is encouraged to get out of bed and reminded that activity is vital to return of bowel function which would permit the DC of NG tube. 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 Qualified Code(s): E11.65 - Type 2 diabetes mellitus with hyperglycemia; Z79.4 - nursing home (current) use of insulin (4) CKD (chronic kidney disease) stage 3, GFR 30-59 ml/min Current Visit: No Status: Chronic Management per primary team Subjective Patient reports: still having pain, voiding w/o difficulty, no flatus, no bowel movement, afebrile Objective Vital Signs - Last 8 Hours Temp Pulse Resp BP Pulse Ox 09/05/17 12:00 99.3 F 104 18 135/82 100 09/05/17 08:10 18 100 09/05/17 07:18 98.9 F 101 18 132/85 100 Intake and Output 09/04/17 09/05/17 09/05/17 23:59 07:59 15:59 Intake Total 100 / 100 Output Total 20 / 20 150 / 150 Balance -20 / -20 -50 / -50 Intake: IV Fluids 100 / 100 Flagyl Premix 500 MG/100 ML 500 100 / 100 mg In 100 ml @ 100 mls/hr IVPB Q8HR [facility] Rx#:[id number] Oral 0 / 0 Output: Urine 150 / 150 Estimated Blood Loss 20 / 20 Other: Blood Glucose* 81 138 131 - General physical appearance no distress, no pain - Eyes normal ocular movement - ENT atraumatic, normocephalic - Neck Neck exam: trachea midline, no venous distension - Respiratory other (Decreased bilateral breath sounds) - Cardiovascular Cardiovascular exam: Present: distant heart sounds - Abdomen Abdomen: Present: soft, tender (Expected postoperative). Absent: bowel sounds present (Absent) Hernia: none - Incision Incision: Present: clean and dry, intact - Integumentary no rash - Neurologic normal coordination, normal sensation - Musculoskeletal normal posture - Psychiatric oriented to time, oriented to person, oriented to place, memory intact - Labs 09/04/17 06:35 09/04/17 06:35 - VTE Documentation of Mechanical Device: Intermittent pneumatic compression device Consult Discharge Plan - Plan Additional Instructions: Please shower as he regularly do, daily. No tub baths for 2 weeks. Wash incisions with soap and water and pat dry daily. No lifting, pushing, or pulling more than 15 pounds for 6 weeks[address] until off narcotics and safely able to react in the vehicle. Continue regular diet as tolerated. May ambulate and climb stairs as tolerated. Referrals: Lisa Brown CNP [Primary Care Provider] - 09/08/17 2:15 pm Chelsey Guzman MD [Partnered Physician] - 09/11/17 2:15 pm Checo Albrecht DO [Partnered Physician] - 09/15/17 9:20 am Fermin Sanderson CNP [Advanced Practice Nurse] - 09/04/17 10:30 am Makenzie Pereira CNP [Advanced Practice Nurse] - 09/23/17 1:00 pm <Jay Mixon - Last Filed: 09/09/17 14:12> Date of Encounter: 09/05/17 - Assessment and Plan (1) Partial small bowel obstruction Current Visit: Yes Status: Acute Objective Vital Signs - Last 8 Hours Temp Pulse Resp BP Pulse Ox 09/09/17 11:17 18 91 09/09/17 10:38 98.1 F 98 14 129/86 93 09/09/17 06:23 97.9 F 85 14 149/80 99 Intake and Output 09/08/17 09/09/17 09/09/17 23:59 07:59 15:59 Intake Total 1190 / 1190 100 / 100 460 / 460 Output Total 365 / 365 150 / 150 300 / 300 Balance 825 / 825 -50 / -50 160 / 160 Intake: IV Fluids 200 / 200 100 / 100 100 / 100 Cipro Premix 400 MG/200 ML 400 200 / 200 mg In 200 ml @ 200 mls/hr IVPB Q12HR [facility] Rx#:[id number] Flagyl Premix 500 MG/100 ML 500 100 / 100 mg In 100 ml @ 100 mls/hr IVPB Q8H [facility] Rx#:[id number] Potassium Chloride 10 mEq/100mL 100 / 100 10 meq In 100 ml @ 100 mls/hr IVPB Q1H [facility] Rx#:[id number] Oral 990 / 990 360 / 360 Output: Urine 365 / 365 150 / 150 300 / 300 Other: Meal Dinner Breakfast Percent of Meal Consumed 0% 0% # Voids 1 Weight 70.1 kg Blood Glucose* 280 234 339 Patient Weight 09/09/17 23:59 Weight 70.1 kg - Labs 09/09/17 07:26 09/09/17 07:26 Diabetes panel 09/09/17 Range/Units 07:26 Sodium 144 (136-145) mEq/L Potassium 3.1 L (3.5-5.1) mEq/L Chloride 104 (98-107) mEq/L Carbon Dioxide 33 H (23-29) mEq/L BUN 11 (8-23) mg/dL Creatinine 0.45 L (0.60-1.20) mg/dL Glucose 237 H (70-105) mg/dL Calcium 8.2 L (8.6-10.3) mg/dL Calcium panel 09/09/17 Range/Units 07:26 Calcium 8.2 L (8.6-10.3) mg/dL Pituitary panel 09/09/17 Range/Units 07:26 Sodium 144 (136-145) mEq/L Potassium 3.1 L (3.5-5.1) mEq/L Chloride 104 (98-107) mEq/L Carbon Dioxide 33 H (23-29) mEq/L BUN 11 (8-23) mg/dL Creatinine 0.45 L (0.60-1.20) mg/dL Glucose 237 H (70-105) mg/dL Calcium 8.2 L (8.6-10.3) mg/dL Adrenal panel 09/09/17 Range/Units 07:26 Sodium 144 (136-145) mEq/L Potassium 3.1 L (3.5-5.1) mEq/L Chloride 104 (98-107) mEq/L Carbon Dioxide 33 H (23-29) mEq/L BUN 11 (8-23) mg/dL Creatinine 0.45 L (0.60-1.20) mg/dL Glucose 237 H (70-105) mg/dL Calcium 8.2 L (8.6-10.3) mg/dL - Attending Attestation I have personally performed a face to face evaluation on this patient. I have reviewed and agree with the care plan. History and Exam by me shows: The patient seen and evaluated on morning rounds. The clinical information shared and discussed with the clinical nurse practitioner. We will continue with nasogastric tube drainage until she has evidence of bowel function. She had successful lysis of adhesions without small bowel resection. Jay Mixon MD FACS
[2017-09-05] MEDS: Nystatin POWDER 30 GM BOTTLE TP SCH ×2 (14:40→22:36)
[2017-09-06] MEDS: *HR* Metoprolol 5 MG/5 ML VIAL IVP SCH ×4 (00:01→17:50)
[2017-09-06] MEDS: Insulin LISPRO 300 UNITS/3 ML VIAL SQ SCH ×4 (00:01→18:56)
[2017-09-06] MEDS: OXYCODONE Oral CONC 10 MG/0.5 ML ORAL.SYG SL PRN ×4 (00:57→20:58)
[2017-09-06] MEDS: Pantoprazole 40 MG VIAL IVP SCH (05:19)
[2017-09-06] MEDS: *HR* Heparin 5,000 UNIT/ML VIAL SQ SCH ×2 (05:19→17:56)
[2017-09-06] MEDS: Chloraseptic Spray 177 ML BOTTLE MM PRN ×4 (05:39→21:00)
[2017-09-06] MEDS: *HR* LORazepam 2 MG/ML VIAL IVP PRN ×2 (06:41→20:31)
[2017-09-06] MEDS: Budesonide/Formoterol 160/4.5 MDI IH SCH ×2 (07:44→21:14)
[2017-09-06] MEDS: Albuterol 2.5 MG/3 ML NEBULIZER IH PRN (07:45)
[2017-09-06 08:23] LABS: Basophils % 0.1 %; Hematocrit 38.6 % (35.3-44.9); Immature Granulocytes % 0.8 % (0-4); Lymphocytes # 1.5 K/mcL (0.6-4.6); Lymphocytes % 8.5 %; Mean Corpuscular HGB Conc 31.1 g/dL (31.6-35.5); Mean Corpuscular Hemoglobin 27.5 pg (28.0-33.3); Mean Corpuscular Volume 88.5 fL (83.0-100.0); Mean Platelet Volume 10.2 fL (9.4-12.4); Monocytes # 0.8 K/mcL (0.0-1.3); Monocytes % 4.7 %; Neutrophils # 14.7 K/mcL (1.6-8.9); Platelet Count 238 K/mcL (140-400); Red Blood Count 4.36 M/mcL (3.82-4.97); Red Cell Distribution Width 14.6 % (11.5-14.5); Segmented Neutrophils % 85.9 %
[2017-09-06] MEDS: methylPREDNISolone 125 MG/2 ML VIAL IVP SCH ×2 (08:27→17:48)
[2017-09-06] MEDS: MetroNIDAZOLE 500 MG/100 ML 500 MG/100 ML BAG IVPB SCH ×2 (08:30→17:52)
[2017-09-06] MEDS: Nystatin POWDER 30 GM BOTTLE TP SCH ×2 (08:33→21:01)
[2017-09-06 09:00] LABS: BUN/Creatinine Ratio 25 (6-26); Blood Urea Nitrogen 17 mg/dL (8-23); Calcium 8.1 mg/dL (8.6-10.3); Carbon Dioxide 32 mEq/L (23-29); Chloride 103 mEq/L (98-107); Glucose 198 mg/dL (70-105); Magnesium 1.9 mg/dL (1.6-2.6); Osmolality,Calculated 301 (280-300); Phosphorous 2.5 mg/dL (2.7-4.5); Potassium 3.2 mEq/L (3.5-5.1); Sodium 142 mEq/L (136-145); eGFR For African Americans > 60 (> 60); eGFR For Non-African Americans > 60 (> 60)
--- NOTE | 2017-09-06 17:09 | Internal Med Progress Note ---
Date of Encounter: 09/06/17 Time of Encounter: 14:00 - Assessment and plan (1) Leukocytosis Current Visit: No Status: Acute Assessment and plan: She has increased WBC from yesterday. No clear source of infection noted. Monitor temperature curve and recheck lab in AM. Cultures if develops fever. Qualifiers: Leukocytosis type: unspecified Qualified Code(s): D72.829 - Elevated white blood cell count, unspecified (2) Hypokalemia Current Visit: Yes Status: Acute Assessment and plan: Replace today. (3) Small bowel obstruction due to postoperative adhesions Current Visit: Yes Status: Acute Assessment and plan: Continues NPO except ice chips. IV fluids ordered Other plan per surgical service. (4) Adhesion of intestine Current Visit: Yes Status: Acute Assessment and plan: As above. (5) CAD (coronary artery disease) Current Visit: No Status: Chronic Assessment and plan: Coronary artery disease, stable. Qualifiers: Coronary Disease-Associated Artery/Lesion type: [place] artery [place] vs. transplanted heart: [place] heart Associated angina: without angina Qualified Code(s): I25.10 - Atherosclerotic heart disease of [place] coronary artery without angina pectoris (6) CKD (chronic kidney disease) stage 3, GFR 30-59 ml/min Current Visit: No Status: Chronic Assessment and plan: Avoid nephrotoxins. (7) Chronic respiratory failure Current Visit: No Status: Chronic Assessment and plan: Continue oxygen supplement. Qualifiers: Respiratory failure complication: hypoxia Qualified Code(s): J96.11 - Chronic respiratory failure with hypoxia (8) Diabetes Current Visit: No Status: Chronic Assessment and plan: Blood sugars being monitored. 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 Gomez is currently admitted for SBO related to adhesions. She remains moderate to high risk due to potential for worsening clinical status. Ms. Gomez is very upset because she cannot eat. She has not passed gas yet. No fever or chills. She is tolerating ice chips. - Constitutional Vitals: Temp Pulse Resp BP Pulse Ox 97.8 F 101 17 123/87 100 09/06/17 15:00 09/06/17 15:09 09/06/17 15:09 09/06/17 15:09 09/06/17 15:09 General appearance: Present: A&O X 3, answers questions appropriately - Head Head exam: Present: normocephalic - Eye Eye exam: Present: EOMI, conjuntiva pink - ENT ENT exam: Present: mucous membranes dry - Respiratory Respiratory exam: Present: CTAB. Absent: rales, rhonchi, wheezes - Cardiovascular Cardiovascular exam: Present: RRR. Absent: tachycardia - GI/Abdominal GI/Abdominal exam: Present: diminished bowel sounds, soft - Extremities Exam Extremities exam: Present: warm. Absent: tenderness - Neurological Exam Neurological exam: Present: alert, oriented X3 - Skin Skin exam: Present: warm. Absent: rash Internal Medicine: Result - Labs CBC & Chem 7: 09/06/17 08:06 09/06/17 08:06 Labs: Short CBC 09/06/17 Range/Units 08:06 WBC 17.1 H D (4.3-11.1) K/mcL Hgb 12.0 (11.5-15.4) g/dL Hct 38.6 (35.3-44.9) % Plt Count 238 (140-400) K/mcL Neutrophils # 14.7 H (1.6-8.9) K/mcL BMP 09/06/17 08:06 Sodium 142 Potassium 3.2 L Chloride 103 Carbon Dioxide 32 H BUN 17 Creatinine 0.67 Glucose 198 H Calcium 8.1 L - VTE Documentation of Mechanical Device: Intermittent pneumatic compression device Consult Discharge Plan - Plan Referrals: Lisa Brown CNP [Primary Care Provider] - 09/08/17 2:15 pm Chelsey Guzman MD [Partnered Physician] - 09/11/17 2:15 pm Checo Albrecht DO [Partnered Physician] - 09/15/17 9:20 am Fermin Sanderson CNP [Advanced Practice Nurse] - 09/04/17 10:30 am
[2017-09-06] MEDS ORDERED: Potassium Chloride 20 MEQ, Lidocaine 1% 2 ML in D5% in Water 250 ML IVPB ONE (17:18)
--- NOTE | 2017-09-06 17:46 | General Surgery Progress Note ---
Date of Encounter: 09/06/17 Time of Encounter: 17:44 - Assessment and Plan (1) Partial small bowel obstruction Current Visit: Yes Status: Acute Continue the NG tube for now. Patient will require a follow-up study in the next 48 hours if she does not open up. Subjective Patient reports: other (Patient reports no flatus, however she does have an appetite and would like something to eat.) Objective Vital Signs - Last 8 Hours Temp Pulse Resp BP Pulse Ox 09/06/17 15:09 101 17 123/87 100 09/06/17 15:00 97.8 F 101 17 123/87 100 09/06/17 10:55 98.4 F 109 20 119/69 98 Intake and Output 09/06/17 09/06/17 09/06/17 07:59 15:59 23:59 Intake Total 300 / 300 100 / 100 Output Total 350 / 350 150 / 150 250 / 250 Balance -50 / -50 -50 / -50 -250 / -250 Intake: IV Fluids 300 / 300 100 / 100 Cipro Premix 400 MG/200 ML 400 200 / 200 mg In 200 ml @ 200 mls/hr IVPB Q12HR [facility] Rx#:[id number] Flagyl Premix 500 MG/100 ML 500 100 / 100 100 / 100 mg In 100 ml @ 100 mls/hr IVPB Q8HR [facility] Rx#:[id number] Oral 0 / 0 0 / 0 Output: Urine 350 / 350 150 / 150 Gastric Tube Lavage Amount 250 / 250 Left Nare 250 / 250 Other: Meal Lunch Percent of Meal Consumed 0% Weight 67.585 kg Blood Glucose* 194 156 Patient Weight 09/06/17 23:59 Weight 67.585 kg - General physical appearance well developed, well nourished - Eyes PERRL, normal ocular movement - ENT normal pinna - Neck Neck exam: no masses, trachea midline - Respiratory normal expansion, normal respiratory effort - Cardiovascular Cardiovascular exam: Present: RRR - Abdomen Abdomen: Present: soft Additional Comments: Patient has an NG tube in place with continued output. - Labs 09/06/17 08:06 09/06/17 08:06 Diabetes panel 09/06/17 Range/Units 08:06 Sodium 142 (136-145) mEq/L Potassium 3.2 L (3.5-5.1) mEq/L Chloride 103 (98-107) mEq/L Carbon Dioxide 32 H (23-29) mEq/L BUN 17 (8-23) mg/dL Creatinine 0.67 (0.60-1.20) mg/dL Glucose 198 H (70-105) mg/dL Calcium 8.1 L (8.6-10.3) mg/dL Calcium panel 09/06/17 Range/Units 08:06 Calcium 8.1 L (8.6-10.3) mg/dL Phosphorus 2.5 L (2.7-4.5) mg/dL Pituitary panel 09/06/17 Range/Units 08:06 Sodium 142 (136-145) mEq/L Potassium 3.2 L (3.5-5.1) mEq/L Chloride 103 (98-107) mEq/L Carbon Dioxide 32 H (23-29) mEq/L BUN 17 (8-23) mg/dL Creatinine 0.67 (0.60-1.20) mg/dL Glucose 198 H (70-105) mg/dL Calcium 8.1 L (8.6-10.3) mg/dL Adrenal panel 09/06/17 Range/Units 08:06 Sodium 142 (136-145) mEq/L Potassium 3.2 L (3.5-5.1) mEq/L Chloride 103 (98-107) mEq/L Carbon Dioxide 32 H (23-29) mEq/L BUN 17 (8-23) mg/dL Creatinine 0.67 (0.60-1.20) mg/dL Glucose 198 H (70-105) mg/dL Calcium 8.1 L (8.6-10.3) mg/dL - VTE Documentation of Mechanical Device: Intermittent pneumatic compression device Consult Discharge Plan - Plan Referrals: Lisa Brown CNP [Primary Care Provider] - 09/08/17 2:15 pm Chelsey Guzman MD [Partnered Physician] - 09/11/17 2:15 pm Checo Albrecht DO [Partnered Physician] - 09/15/17 9:20 am Fermin Sanderson CNP [Advanced Practice Nurse] - 09/04/17 10:30 am
[2017-09-06] MEDS: 0.9 % Sodium Chloride 1,000 ML IVC SCH (19:16)
[2017-09-07] MEDS: MetroNIDAZOLE 500 MG/100 ML 500 MG/100 ML BAG IVPB SCH ×3 (01:27→16:16)
[2017-09-07] MEDS: *HR* Metoprolol 5 MG/5 ML VIAL IVP SCH ×5 (01:27→17:52)
[2017-09-07] MEDS: Insulin LISPRO 300 UNITS/3 ML VIAL SQ SCH ×4 (01:37→18:00)
[2017-09-07] MEDS: *HR* Heparin 5,000 UNIT/ML VIAL SQ SCH ×2 (06:36→17:51)
[2017-09-07] MEDS: methylPREDNISolone 125 MG/2 ML VIAL IVP SCH ×2 (06:36→17:52)
[2017-09-07] MEDS: Pantoprazole 40 MG VIAL IVP SCH ×2 (06:37→22:04)
[2017-09-07] MEDS: Nystatin POWDER 30 GM BOTTLE TP SCH ×2 (07:40→22:22)
[2017-09-07] MEDS: Budesonide/Formoterol 160/4.5 MDI IH SCH ×2 (07:57→20:40)
[2017-09-07 08:07] LABS: Basophils % 0.2 %; Hematocrit 36.8 % (35.3-44.9); Hemoglobin 11.2 g/dL (11.5-15.4); Immature Granulocytes % 0.7 % (0-4); Lymphocytes # 1.3 K/mcL (0.6-4.6); Lymphocytes % 9.9 %; Mean Corpuscular HGB Conc 30.4 g/dL (31.6-35.5); Mean Corpuscular Hemoglobin 27.7 pg (28.0-33.3); Mean Corpuscular Volume 91.1 fL (83.0-100.0); Mean Platelet Volume 10.7 fL (9.4-12.4); Monocytes # 0.7 K/mcL (0.0-1.3); Monocytes % 5.1 %; Neutrophils # 10.7 K/mcL (1.6-8.9); Platelet Count 170 K/mcL (140-400); Red Blood Count 4.04 M/mcL (3.82-4.97); Red Cell Distribution Width 14.6 % (11.5-14.5); Segmented Neutrophils % 84.1 %
[2017-09-07 08:45] LABS: BUN/Creatinine Ratio 30 (6-26); Blood Urea Nitrogen 16 mg/dL (8-23); Calcium 7.8 mg/dL (8.6-10.3); Carbon Dioxide 34 mEq/L (23-29); Chloride 104 mEq/L (98-107); Glucose 202 mg/dL (70-105); Osmolality,Calculated 305 (280-300); Phosphorous 1.7 mg/dL (2.7-4.5); Potassium 3.2 mEq/L (3.5-5.1); Sodium 144 mEq/L (136-145); eGFR For African Americans > 60 (> 60); eGFR For Non-African Americans > 60 (> 60)
[2017-09-07] MEDS ORDERED: Potassium Chloride 40 MEQ, Lidocaine 1% 2 ML in D5% in Water 500 ML IVPB ONE (12:24)
--- NOTE | 2017-09-07 12:28 | Internal Med Progress Note ---
<Dar Mathews - Last Filed: 09/07/17 16:00> Date of Encounter: 09/07/17 Time of Encounter: 12:26 - Assessment and plan (1) Partial small bowel obstruction Current Visit: Yes Status: Acute Assessment and plan: Patient has abdominal distention, tenderness to light palpation, hypoactive bowel sounds, tympanic to palpation, nausea vomiting, absence of flatulence or bowel movements. 09/03/2017: no improvement in abdominal exam. Patient needed an NG tube placement after significant vomiting last evening with distended abdomen. notified general surgery. 09/04: No improvement or change in belly exam, plans for surgery today. 09/05: Post op day, lysing of adhesions. Patient stable. 09/07: NG tube still in place, advance diet when surgery deems stable to do so. Plan: - Gen. surgery following appreciate recommendations on advancing diet and post surgical care. (2) Tachycardia Current Visit: Yes Status: Acute Assessment and plan: Patient has a history of tachycardia, Rate controlled - Home medication Coreg 3.125 twice a day - Currently not taking beta jose g as she is nothing by mouth prior to potential surgery. - Metoprolol 5 mg IV every 6 hours Scheduled with holding parameters. (3) Insulin dependent diabetes mellitus Current Visit: Yes Status: Chronic Assessment and plan: Known type 2 diabetes insulin-dependent. - Glucose slowly elevating. Levemir held. Patient putting sugar on her ice cubes when she is NPO with NG tube Plan: - Hold Levemir - Subcutaneous medium-dose sliding scale Q6hrs. - Before meals at bedtime glucose checks (4) CAD (coronary artery disease) Current Visit: No Status: Chronic Assessment and plan: Coronary artery disease, stable. Qualifiers: Coronary Disease-Associated Artery/Lesion type: [place] artery [place] vs. transplanted heart: [place] heart Associated angina: without angina Qualified Code(s): I25.10 - Atherosclerotic heart disease of [place] coronary artery without angina pectoris (5) DVT prophylaxis Current Visit: No Status: Acute Assessment and plan: Subcutaneous Heparin. - Subjective Interval history: Ms. Gomez 62 year old female seen and evaluated at patient's bedside. She is resting comfortably and would like to eat. She has not had a bowel movement or flatulents. Discomfort with the NG tube. No other concerns at this time. - Constitutional Vitals: Temp Pulse Resp BP Pulse Ox 99.0 F 107 15 131/76 93 09/07/17 11:34 09/07/17 11:34 09/07/17 11:34 09/07/17 11:34 09/07/17 11:34 General appearance: Present: A&O X 3, answers questions appropriately Exam: General: Patient alert, awake, oriented 3, interactive, in no acute distress HEENT: Normocephalic, atraumatic, pupils equal reactive to light, nasal cavity patent with NG tube in place, oral mucosa moist, neck supple trachea midline no palpable lymphadenopathy, no thyromegaly. Chest: Symmetric bilateral correlating with respiratory effort, effort nonlabored. Cardiac: Tachycardia, positive S1 and S2. no bruits appreciated bilateral carotids, Radial pulses 2+ bilateral, posterior tibial and dorsal pedal pulses 2 + bilateral. Respiratory: Clear to auscultation all lung [place] Abdomen: Abdomen distended, mild tenderness to light palpation, absent bowel sounds, tympanic, post surgical sites healing well without drainage. Extremities: Symmetric bilateral, bilateral lower extremities without erythema or edema patient moving all 4 extremities spontaneously. Neurologic: No focal deficits appreciated on examination. Face symmetric, muscle strength symmetric bilateral upper and lower extremities. Internal Medicine: Result - Labs CBC & Chem 7: 09/07/17 07:38 09/07/17 07:38 Labs: Short CBC 09/07/17 Range/Units 07:38 WBC 12.8 H (4.3-11.1) K/mcL Hgb 11.2 L (11.5-15.4) g/dL Hct 36.8 (35.3-44.9) % Plt Count 170 (140-400) K/mcL Neutrophils # 10.7 H (1.6-8.9) K/mcL BMP 09/07/17 07:38 Sodium 144 Potassium 3.2 L Chloride 104 Carbon Dioxide 34 H BUN 16 Creatinine 0.53 L Glucose 202 H Calcium 7.8 L - VTE Documentation of Mechanical Device: Intermittent pneumatic compression device Consult Discharge Plan - Plan Referrals: Lisa Brown CNP [Primary Care Provider] - 09/08/17 2:15 pm Chelsey Guzman MD [Partnered Physician] - 09/11/17 2:15 pm Checo Albrecht DO [Partnered Physician] - 09/15/17 9:20 am Fermin Sanderson, ROLLER HAND [Advanced Practice Nurse] - 09/04/17 10:30 am <Ej Bertrand - Last Filed: 09/07/17 18:20> Date of Encounter: 09/07/17 - Assessment and plan (1) Hematemesis Current Visit: Yes Status: Acute Qualifiers: Nausea presence: with nausea Qualified Code(s): K92.0 - Hematemesis (2) Leukocytosis Current Visit: No Status: Acute Qualifiers: Leukocytosis type: unspecified Qualified Code(s): D72.829 - Elevated white blood cell count, unspecified (3) Hypokalemia Current Visit: Yes Status: Acute (4) Small bowel obstruction due to postoperative adhesions Current Visit: Yes Status: Acute (5) Adhesion of intestine Current Visit: Yes Status: Acute (6) CAD (coronary artery disease) Current Visit: No Status: Chronic Qualifiers: Coronary Disease-Associated Artery/Lesion type: [place] artery [place] vs. transplanted heart: [place] heart Associated angina: without angina Qualified Code(s): I25.10 - Atherosclerotic heart disease of [place] coronary artery without angina pectoris (7) CKD (chronic kidney disease) stage 3, GFR 30-59 ml/min Current Visit: No Status: Chronic (8) Chronic respiratory failure Current Visit: No Status: Chronic Qualifiers: Respiratory failure complication: hypoxia Qualified Code(s): J96.11 - Chronic respiratory failure with hypoxia (9) Diabetes Current Visit: No Status: Chronic Qualifiers: Diabetes mellitus type: type 2 Diabetes mellitus complication status: with hyperglycemia Diabetes mellitus intermediate project manager insulin use: with intermediate project manager use Qualified Code(s): E11.65 - Type 2 diabetes mellitus with hyperglycemia; Z79.4 - senior care (current) use of insulin - Constitutional Vitals: Temp Pulse Resp BP Pulse Ox 100 F H 116 15 128/81 93 09/07/17 16:02 09/07/17 16:02 09/07/17 16:02 09/07/17 16:02 09/07/17 16:02 Internal Medicine: Result - Labs CBC & Chem 7: 09/07/17 07:38 09/07/17 07:38 Labs: Short CBC 09/07/17 Range/Units 07:38 WBC 12.8 H (4.3-11.1) K/mcL Hgb 11.2 L (11.5-15.4) g/dL Hct 36.8 (35.3-44.9) % Plt Count 170 (140-400) K/mcL Neutrophils # 10.7 H (1.6-8.9) K/mcL BMP 09/07/17 07:38 Sodium 144 Potassium 3.2 L Chloride 104 Carbon Dioxide 34 H BUN 16 Creatinine 0.53 L Glucose 202 H Calcium 7.8 L - Impressions Impressions Chest/Abdomen X-ray 09/07/17 13:45 IMPRESSION: 1. No dilated loops of bowel are identified on today's exam. Contrast is present throughout the colon which appears predominantly collapsed. 2. Likely trace left pleural effusion and bibasilar atelectasis. 3. Enteric tube present with side port over the gastric body and tip at the level of the gastric antrum/pylorus. D/ / Tobias James MD / Tobias James MD Interpreting Provider: Tobias James MD - Attending Attestation I examined this patient and my medical decision-making was reviewed with the Resident Physician on 09/07/17. I agree with the documented findings, disposition and treatment plan as described except to the extent set forth below. Ms Gomez is currently admitted for acute SBO s/p adhesion lysis. She remains moderate to high risk due to potential for worsening clinical status. Ms Gomez is wanting to eat and get the NG out. No fever or chills but has noticed some bright red blood in NG. No BM yet. Exam alert Mod distress Mucus membranes dry Heart reg and tachy Some rhonchi heard I/P 1. SBO 2. DM Further diagnoses and plan as above.
[2017-09-07] MEDS ORDERED: Potassium Phosphate 44 MEQ in 0.9 % Sodium Chloride 250 ML IVPB ONE (12:40)
[2017-09-07] MEDS ORDERED: Furosemide 40 MG/4 ML VIAL IVP ONE (13:23)
[2017-09-07] MEDS: Chloraseptic Spray 177 ML BOTTLE MM PRN ×2 (13:38→16:17)
[2017-09-07] MEDS: *HR* LORazepam 2 MG/ML VIAL IVP PRN ×2 (13:41→21:53)
[2017-09-07] MEDS: *HR* Promethazine 25 MG/ML VIAL IVP PRN (16:14)
[2017-09-07] MEDS: OXYCODONE Oral CONC 10 MG/0.5 ML ORAL.SYG SL PRN ×2 (16:46→22:02)
[2017-09-08] MEDS: *HR* Metoprolol 5 MG/5 ML VIAL IVP SCH ×4 (01:05→18:18)
[2017-09-08] MEDS: Chloraseptic Spray 177 ML BOTTLE MM PRN ×2 (01:05→18:40)
[2017-09-08] MEDS: *HR* Promethazine 25 MG/ML VIAL IVP PRN (01:05)
[2017-09-08] MEDS: MetroNIDAZOLE 500 MG/100 ML 500 MG/100 ML BAG IVPB SCH ×3 (01:06→18:24)
[2017-09-08] MEDS: Insulin LISPRO 300 UNITS/3 ML VIAL SQ SCH ×4 (01:18→18:34)
[2017-09-08] MEDS: methylPREDNISolone 125 MG/2 ML VIAL IVP SCH (06:40)
[2017-09-08] MEDS: *HR* Heparin 5,000 UNIT/ML VIAL SQ SCH ×2 (06:40→18:22)
[2017-09-08 06:48] LABS: Basophils % 0.2 %; Hematocrit 35.1 % (35.3-44.9); Lymphocytes % 8.1 %; Mean Corpuscular HGB Conc 31.3 g/dL (31.6-35.5); Mean Corpuscular Hemoglobin 27.8 pg (28.0-33.3); Mean Corpuscular Volume 88.6 fL (83.0-100.0); Mean Platelet Volume 11.6 fL (9.4-12.4); Monocytes # 0.7 K/mcL (0.0-1.3); Monocytes % 5.1 %; Platelet Count 194 K/mcL (140-400); Red Blood Count 3.96 M/mcL (3.82-4.97); Red Cell Distribution Width 14.7 % (11.5-14.5); Segmented Neutrophils % 85.6 %
[2017-09-08] MEDS: Budesonide/Formoterol 160/4.5 MDI IH SCH ×2 (08:18→20:14)
[2017-09-08 09:50] LABS: Alanine Aminotransferase 13 Units/L (7-52); Albumin 2.4 g/dL (3.5-5.7); Albumin/Globulin Ratio 1.1 (1.1-2.2); Alkaline Phosphatase 26 Units/L (34-104); Aspartate Amino Transferase 12 Units/L (13-39); BUN/Creatinine Ratio 34 (6-26); Bilirubin,Total 0.3 mg/dL (0.3-1.0); Blood Urea Nitrogen 15 mg/dL (8-23); Calcium 7.6 mg/dL (8.6-10.3); Carbon Dioxide 34 mEq/L (23-29); Chloride 104 mEq/L (98-107); Globulin 2.1 g/dL (2.4-3.5); Glucose 211 mg/dL (70-105); Magnesium 1.8 mg/dL (1.6-2.6); Osmolality,Calculated 305 (280-300); Phosphorous 2.3 mg/dL (2.7-4.5); Potassium 3.3 mEq/L (3.5-5.1); Sodium 144 mEq/L (136-145); Total Protein 4.5 g/dL (6.4-8.9); eGFR For African Americans > 60 (> 60); eGFR For Non-African Americans > 60 (> 60)
--- NOTE | 2017-09-08 10:06 | Internal Med Progress Note ---
<Ej Bertrand - Last Filed: 09/08/17 14:17> Date of Encounter: 09/08/17 - Assessment and plan (1) Hematemesis Current Visit: Yes Status: Resolved Qualifiers: Nausea presence: with nausea Qualified Code(s): K92.0 - Hematemesis (2) Leukocytosis Current Visit: No Status: Acute Qualifiers: Leukocytosis type: unspecified Qualified Code(s): D72.829 - Elevated white blood cell count, unspecified (3) Hypokalemia Current Visit: Yes Status: Acute (4) Small bowel obstruction due to postoperative adhesions Current Visit: Yes Status: Acute (5) Adhesion of intestine Current Visit: Yes Status: Acute (6) CAD (coronary artery disease) Current Visit: No Status: Chronic Qualifiers: Coronary Disease-Associated Artery/Lesion type: [place] artery [place] vs. transplanted heart: [place] heart Associated angina: without angina Qualified Code(s): I25.10 - Atherosclerotic heart disease of [place] coronary artery without angina pectoris (7) CKD (chronic kidney disease) stage 3, GFR 30-59 ml/min Current Visit: No Status: Chronic (8) Chronic respiratory failure Current Visit: No Status: Chronic Qualifiers: Respiratory failure complication: hypoxia Qualified Code(s): J96.11 - Chronic respiratory failure with hypoxia (9) Diabetes Current Visit: No Status: Chronic Qualifiers: Diabetes mellitus type: type 2 Diabetes mellitus complication status: with hyperglycemia Diabetes mellitus [facility] insulin use: with keno terminal operator use Qualified Code(s): E11.65 - Type 2 diabetes mellitus with hyperglycemia; Z79.4 - shelter (current) use of insulin - Constitutional Vitals: Temp Pulse Resp BP Pulse Ox 98.2 F 92 15 105/90 97 09/08/17 10:50 09/08/17 10:50 09/08/17 10:50 09/08/17 10:50 09/08/17 10:50 Internal Medicine: Result - Labs CBC & Chem 7: 09/08/17 06:13 09/08/17 08:11 Labs: Short CBC 09/08/17 Range/Units 06:13 WBC 12.9 H (4.3-11.1) K/mcL Hgb 11.0 L (11.5-15.4) g/dL Hct 35.1 L (35.3-44.9) % Plt Count 194 (140-400) K/mcL Neutrophils # 11.0 H (1.6-8.9) K/mcL BMP 09/08/17 08:11 Sodium 144 Potassium 3.3 L Chloride 104 Carbon Dioxide 34 H BUN 15 Creatinine 0.44 L Glucose 211 H Calcium 7.6 L Liver Function 09/08/17 Range/Units 08:11 Total Bilirubin 0.3 (0.3-1.0) mg/dL AST 12 L (13-39) Units/L ALT 13 (7-52) Units/L Alkaline Phosphatase 26 L (34-104) Units/L Albumin 2.4 L (3.5-5.7) g/dL - Impressions Impressions Chest/Abdomen X-ray 09/07/17 13:45 IMPRESSION: 1. No dilated loops of bowel are identified on today's exam. Contrast is present throughout the colon which appears predominantly collapsed. 2. Likely trace left pleural effusion and bibasilar atelectasis. 3. Enteric tube present with side port over the gastric body and tip at the level of the gastric antrum/pylorus. D/ / Tobias James MD / Tobias James MD Interpreting Provider: Tobias James MD Consult Discharge Plan - Plan Referrals: Lisa Brown CNP [Primary Care Provider] - 09/08/17 2:15 pm Chelsey Guzman MD [Partnered Physician] - 09/11/17 2:15 pm Checo Albrecht DO [Partnered Physician] - 09/15/17 9:20 am Fermin Sanderson CNP [Advanced Practice Nurse] - 09/04/17 10:30 am - Attending Attestation I examined this patient and my medical decision-making was reviewed with the Resident Physician on 09/08/17. I agree with the documented findings, disposition and treatment plan as described except to the extent set forth below. Ms Gomez is currently admitted for SBO due to adhesions s/p laparotomy. She remains moderate to high risk due to potential for worsening clinical status. Ms Gomez is resting. She is allowed to have some clear liquids today. Had low grade temp this AM. WBC stable. H/H stable despite some blood in NG last night. K still low due to NG suction. No other issues. Weaning steroids. Exam alert. Comfortable Mucus membranes dry Heart not tachy No wheeze No edema I/P 1. SBO s/p laparotomy 2. DM Further diagnoses and plan as above. <Cali Johnson - Last Filed: 09/08/17 15:34> Date of Encounter: 09/08/17 Time of Encounter: 08:35 - Assessment and plan (1) Partial small bowel obstruction Current Visit: Yes Status: Acute Assessment and plan: s/p abdominal surgery for lysis of adhesions on 09/04/17. Patient has abdominal distention, tenderness palpation, hypoactive bowel sounds , absence of flatulence or bowel movements. NG tube in place. Diet advanced to limited clear liquids. Gen Surgery following, appreciated continued recommendation of advancing diet and post surgical care. Spoke with Isela (Surgery resident), plan to continue abx for 10 days post surgery. Patient on ciprofloxacin and flagyl. Update: Patient noted to have BM today. (2) Tachycardia Current Visit: Yes Status: Acute Assessment and plan: Patient has a history of tachycardia, Rate controlled - Home medication Coreg 3.125 twice a day - Currently not taking beta jose g as she is nothing by mouth prior to potential surgery. - Metoprolol 5 mg IV every 6 hours Scheduled with holding parameters. (3) Insulin dependent diabetes mellitus Current Visit: Yes Status: Chronic Assessment and plan: Known type 2 diabetes insulin-dependent. Patient noted to be taking glucose tablets/sugar. - Hold Levemir - Subcutaneous medium-dose sliding scale Q6hrs. - Before meals at bedtime glucose checks. Diet advanced to limited clear liquids. (4) CAD (coronary artery disease) Current Visit: No Status: Chronic Assessment and plan: Coronary artery disease, stable. Qualifiers: Coronary Disease-Associated Artery/Lesion type: [place] artery [place] vs. transplanted heart: [place] heart Associated angina: without angina Qualified Code(s): I25.10 - Atherosclerotic heart disease of [place] coronary artery without angina pectoris (5) DVT prophylaxis Current Visit: No Status: Acute Assessment and plan: Subcutaneous Heparin. (6) COPD with exacerbation Current Visit: Yes Status: Resolved Assessment and plan: Previously started on steroids for AECOPD. No acute respiratory issues currently , will work to taper steroids. - Time Spent With Patient less than 15 minutes - Subjective Interval history: Patient asleep upon entering room, woken easily, though notes fatigue. Denies flatus or BM. NG in place, with small amount of dark thick secretions in canister. Tmax of 100F. Requesting ice. - Constitutional Vitals: Temp Pulse Resp BP Pulse Ox 97.7 F 88 14 124/75 91 09/08/17 06:30 09/08/17 06:30 09/08/17 08:21 09/08/17 06:30 09/08/17 08:21 General appearance: Present: A&O X 3, answers questions appropriately - Head Head exam: Present: atraumatic, normocephalic - Eye Eye exam: Present: conjuntiva pink - ENT ENT exam: Present: mucous membranes moist Additional comments: NG tube in place. - Neck Neck exam general surgery: Present: supple - Respiratory Respiratory exam: Present: decreased breath sounds, CTAB. Absent: stridor, wheezes - Cardiovascular Cardiovascular exam: Present: tachycardia. Absent: diastolic murmur, systolic murmur - GI/Abdominal GI/Abdominal exam: Present: soft. Absent: normal bowel sounds Additional comments: post-surgical site healing well. - Extremities Exam Extremities exam: Present: warm. Absent: cyanotic, tenderness - Neurological Exam Neurological exam: Present: alert, oriented X3 Internal Medicine: Result - Labs CBC & Chem 7: 09/08/17 06:13 09/08/17 08:11 Labs: Short CBC 09/08/17 Range/Units 06:13 WBC 12.9 H (4.3-11.1) K/mcL Hgb 11.0 L (11.5-15.4) g/dL Hct 35.1 L (35.3-44.9) % Plt Count 194 (140-400) K/mcL Neutrophils # 11.0 H (1.6-8.9) K/mcL BMP 09/08/17 08:11 Sodium 144 Potassium 3.3 L Chloride 104 Carbon Dioxide 34 H BUN 15 Creatinine 0.44 L Glucose 211 H Calcium 7.6 L Liver Function 09/08/17 Range/Units 08:11 Total Bilirubin 0.3 (0.3-1.0) mg/dL AST 12 L (13-39) Units/L ALT 13 (7-52) Units/L Alkaline Phosphatase 26 L (34-104) Units/L Albumin 2.4 L (3.5-5.7) g/dL - Impressions Impressions Chest/Abdomen X-ray 09/07/17 13:45 IMPRESSION: 1. No dilated loops of bowel are identified on today's exam. Contrast is present throughout the colon which appears predominantly collapsed. 2. Likely trace left pleural effusion and bibasilar atelectasis. 3. Enteric tube present with side port over the gastric body and tip at the level of the gastric antrum/pylorus. D/ / Tobias James MD / Tobias James MD Interpreting Provider: Tobias James MD - VTE Documentation of Mechanical Device: Intermittent pneumatic compression device
[2017-09-08] MEDS: 0.9 % Sodium Chloride 1,000 ML IVC SCH (10:48)
[2017-09-08] MEDS: Pantoprazole 40 MG VIAL IVP SCH ×2 (11:44→19:41)
[2017-09-08] MEDS: *HR* LORazepam 2 MG/ML VIAL IVP PRN ×2 (11:56→19:41)
[2017-09-08] MEDS: Metoclopramide 10 MG/2 ML VIAL IVP SCH ×2 (11:57→18:22)
[2017-09-08] MEDS: Nystatin POWDER 30 GM BOTTLE TP SCH ×2 (12:14→19:42)
--- NOTE | 2017-09-08 13:49 | General Surgery Progress Note ---
<Isela Smith Sandrine - Last Filed: 09/08/17 14:27> Date of Encounter: 09/08/17 Time of Encounter: 07:30 - Assessment and Plan (1) Partial small bowel obstruction Current Visit: Yes Status: Acute POD #4 ex-laparotomy with lysis of adhesions. Patient resting comfortably this morning. -Patient had a bowel movement today. -Continue reglan today. Will d/c tomorrow. -NG to gravity -300 CLD per shift. -Will continue to advance diet as tolerated tomorrow. Subjective Patient reports: no new complaints, voiding w/o difficulty, bowel movement, afebrile Objective Vital Signs - Last 8 Hours Temp Pulse Resp BP Pulse Ox 09/08/17 10:50 98.2 F 92 15 105/90 97 09/08/17 08:21 14 91 09/08/17 06:30 97.7 F 88 14 124/75 91 Intake and Output 09/07/17 09/08/17 09/08/17 23:59 07:59 15:59 Intake Total 320 / 320 320 / 320 0 / 0 Output Total 450 / 450 750 / 750 100 / 100 Balance -130 / -130 -430 / -430 -100 / -100 Intake: IV Fluids 300 / 300 100 / 100 Cipro Premix 400 MG/200 ML 400 200 / 200 mg In 200 ml @ 200 mls/hr IVPB Q12HR [facility] Rx#:[id number] Flagyl Premix 500 MG/100 ML 500 100 / 100 100 / 100 mg In 100 ml @ 100 mls/hr IVPB Q8HR [facility] Rx#:[id number] Oral 20 / 20 220 / 220 0 / 0 Output: Urine 0 / 0 0 / 0 100 / 100 Gastric Drainage 450 / 450 Wound Drainage 750 / 750 NG Tube 750 / 750 Other: Meal Lunch Percent of Meal Consumed 0% Stool Size Small Stool Consistency soft # Bowel Movements 1 Weight 69.2 kg Blood Glucose* 212 181 189 Patient Weight 09/08/17 23:59 Weight 69.2 kg - General physical appearance well developed, well nourished, no distress - Eyes PERRL, normal ocular movement - Neck Neck exam: trachea midline - Respiratory other (rhonchi auscultated bilaterally) - Cardiovascular Cardiovascular exam: Present: RRR, no murmurs/rubs/gallops - Abdomen Abdomen: Present: bowel sounds present, distended. Absent: rebound, rigid Hernia: none - Incision Incision: Present: clean and dry, intact - Integumentary no rash - Psychiatric oriented to time, oriented to person, oriented to place, speech is normal, memory intact - Labs 09/08/17 06:13 09/08/17 08:11 Diabetes panel 09/08/17 Range/Units 08:11 Sodium 144 (136-145) mEq/L Potassium 3.3 L (3.5-5.1) mEq/L Chloride 104 (98-107) mEq/L Carbon Dioxide 34 H (23-29) mEq/L BUN 15 (8-23) mg/dL Creatinine 0.44 L (0.60-1.20) mg/dL Glucose 211 H (70-105) mg/dL Calcium 7.6 L (8.6-10.3) mg/dL AST 12 L (13-39) Units/L ALT 13 (7-52) Units/L Alkaline Phosphatase 26 L (34-104) Units/L Albumin 2.4 L (3.5-5.7) g/dL Calcium panel 09/08/17 Range/Units 08:11 Calcium 7.6 L (8.6-10.3) mg/dL Phosphorus 2.3 L (2.7-4.5) mg/dL Albumin 2.4 L (3.5-5.7) g/dL Pituitary panel 09/08/17 Range/Units 08:11 Sodium 144 (136-145) mEq/L Potassium 3.3 L (3.5-5.1) mEq/L Chloride 104 (98-107) mEq/L Carbon Dioxide 34 H (23-29) mEq/L BUN 15 (8-23) mg/dL Creatinine 0.44 L (0.60-1.20) mg/dL Glucose 211 H (70-105) mg/dL Calcium 7.6 L (8.6-10.3) mg/dL Adrenal panel 09/08/17 Range/Units 08:11 Sodium 144 (136-145) mEq/L Potassium 3.3 L (3.5-5.1) mEq/L Chloride 104 (98-107) mEq/L Carbon Dioxide 34 H (23-29) mEq/L BUN 15 (8-23) mg/dL Creatinine 0.44 L (0.60-1.20) mg/dL Glucose 211 H (70-105) mg/dL Calcium 7.6 L (8.6-10.3) mg/dL Total Bilirubin 0.3 (0.3-1.0) mg/dL AST 12 L (13-39) Units/L ALT 13 (7-52) Units/L Alkaline Phosphatase 26 L (34-104) Units/L Albumin 2.4 L (3.5-5.7) g/dL - VTE Documentation of Mechanical Device: Intermittent pneumatic compression device Consult Discharge Plan - Plan Additional Instructions: Please shower as he regularly do, daily. No tub baths for 2 weeks. Wash incisions with soap and water and pat dry daily. No lifting, pushing, or pulling more than 15 pounds for 6 [address] until off narcotics and safely able to react in the vehicle. Continue regular diet as tolerated. May ambulate and climb stairs as tolerated. Referrals: Lisa Brown CNP [Primary Care Provider] - 09/08/17 2:15 pm Chelsey Guzman MD [Partnered Physician] - 09/11/17 2:15 pm Checo Albrecht DO [Partnered Physician] - 09/15/17 9:20 am Fermin Sanderson CNP [Advanced Practice Nurse] - 09/04/17 10:30 am Makenzie Pereira CNP [Advanced Practice Nurse] - 09/23/17 1:00 pm <Jay Mixon - Last Filed: 09/09/17 14:24> Date of Encounter: 09/08/17 - Assessment and Plan (1) Partial small bowel obstruction Current Visit: Yes Status: Acute Objective Vital Signs - Last 8 Hours Temp Pulse Resp BP Pulse Ox 09/09/17 11:17 18 91 09/09/17 10:38 98.1 F 98 14 129/86 93 Intake and Output 09/08/17 09/09/17 09/09/17 23:59 07:59 15:59 Intake Total 1190 / 1190 100 / 100 940 / 940 Output Total 365 / 365 150 / 150 400 / 400 Balance 825 / 825 -50 / -50 540 / 540 Intake: IV Fluids 200 / 200 100 / 100 100 / 100 Cipro Premix 400 MG/200 ML 400 200 / 200 mg In 200 ml @ 200 mls/hr IVPB Q12HR [facility] Rx#:[id number] Flagyl Premix 500 MG/100 ML 500 100 / 100 mg In 100 ml @ 100 mls/hr IVPB Q8H [facility] Rx#:[id number] Potassium Chloride 10 mEq/100mL 100 / 100 10 meq In 100 ml @ 100 mls/hr IVPB Q1H [facility] Rx#:[id number] Oral 990 / 990 840 / 840 Output: Urine 365 / 365 150 / 150 400 / 400 Other: Meal Dinner Lunch Percent of Meal Consumed 0% 95% # Voids 1 Weight 70.1 kg Blood Glucose* 280 234 339 Patient Weight 09/09/17 23:59 Weight 70.1 kg - Labs 09/09/17 07:26 09/09/17 07:26 Diabetes panel 09/09/17 Range/Units 07:26 Sodium 144 (136-145) mEq/L Potassium 3.1 L (3.5-5.1) mEq/L Chloride 104 (98-107) mEq/L Carbon Dioxide 33 H (23-29) mEq/L BUN 11 (8-23) mg/dL Creatinine 0.45 L (0.60-1.20) mg/dL Glucose 237 H (70-105) mg/dL Calcium 8.2 L (8.6-10.3) mg/dL Calcium panel 09/09/17 Range/Units 07:26 Calcium 8.2 L (8.6-10.3) mg/dL Pituitary panel 09/09/17 Range/Units 07:26 Sodium 144 (136-145) mEq/L Potassium 3.1 L (3.5-5.1) mEq/L Chloride 104 (98-107) mEq/L Carbon Dioxide 33 H (23-29) mEq/L BUN 11 (8-23) mg/dL Creatinine 0.45 L (0.60-1.20) mg/dL Glucose 237 H (70-105) mg/dL Calcium 8.2 L (8.6-10.3) mg/dL Adrenal panel 09/09/17 Range/Units 07:26 Sodium 144 (136-145) mEq/L Potassium 3.1 L (3.5-5.1) mEq/L Chloride 104 (98-107) mEq/L Carbon Dioxide 33 H (23-29) mEq/L BUN 11 (8-23) mg/dL Creatinine 0.45 L (0.60-1.20) mg/dL Glucose 237 H (70-105) mg/dL Calcium 8.2 L (8.6-10.3) mg/dL - Attending Attestation I examined this patient and my medical decision-making was reviewed with the Resident Physician. I agree with the documented findings, disposition and treatment plan as described except to the extent set forth below. The patient was seen and evaluated with the resident morning rounds and the clinical information is discussed and reviewed with the clinical nurse practitioner. The patient is doing well and developing bowel sounds. We should be able to get the nasogastric tube out later today if the patient has evidence of bowel activity. Incision is in good condition. Jay Mixon MD FACS
[2017-09-08] MEDS: MethylPREDNISolone 40 MG/ML VIAL IVP SCH (18:23)
[2017-09-08] MEDS: OXYCODONE Oral CONC 10 MG/0.5 ML ORAL.SYG SL PRN ×2 (18:40→23:13)
[2017-09-08] MEDS: Albuterol 2.5 MG/3 ML NEBULIZER IH PRN (20:14)
[2017-09-09] MEDS: *HR* Metoprolol 5 MG/5 ML VIAL IVP SCH ×3 (00:09→11:14)
[2017-09-09] MEDS: Insulin LISPRO 300 UNITS/3 ML VIAL SQ SCH ×4 (00:19→18:42)
[2017-09-09] MEDS: Metoclopramide 10 MG/2 ML VIAL IVP SCH (00:20)
[2017-09-09] MEDS: *HR* Promethazine 25 MG/ML VIAL IVP PRN ×2 (00:24→05:58)
[2017-09-09] MEDS: MetroNIDAZOLE 500 MG/100 ML 500 MG/100 ML BAG IVPB SCH ×3 (02:17→18:36)
[2017-09-09] MEDS: *HR* Heparin 5,000 UNIT/ML VIAL SQ SCH ×2 (05:07→18:34)
[2017-09-09] MEDS: MethylPREDNISolone 40 MG/ML VIAL IVP SCH (05:07)
[2017-09-09] MEDS ORDERED: Erythromycin Lactobionate 250 MG in 0.9 % Sodium Chloride 100 ML IVPB SCH (06:00)
[2017-09-09 07:57] LABS: Basophils % 0.1 %; Hematocrit 35.2 % (35.3-44.9); Hemoglobin 10.7 g/dL (11.5-15.4); Immature Granulocytes % 1.2 % (0-4); Lymphocytes # 0.7 K/mcL (0.6-4.6); Lymphocytes % 7.9 %; Mean Corpuscular HGB Conc 30.4 g/dL (31.6-35.5); Mean Corpuscular Hemoglobin 27.4 pg (28.0-33.3); Mean Corpuscular Volume 90.3 fL (83.0-100.0); Mean Platelet Volume 11.2 fL (9.4-12.4); Monocytes # 0.4 K/mcL (0.0-1.3); Monocytes % 4.4 %; Neutrophils # 7.1 K/mcL (1.6-8.9); Platelet Count 205 K/mcL (140-400); Red Cell Distribution Width 14.7 % (11.5-14.5); Segmented Neutrophils % 86.4 %
[2017-09-09] MEDS: OXYCODONE Oral CONC 10 MG/0.5 ML ORAL.SYG SL PRN ×3 (08:22→18:35)
[2017-09-09] MEDS: *HR* LORazepam 2 MG/ML VIAL IVP PRN ×2 (08:22→18:35)
[2017-09-09] MEDS: Pantoprazole 40 MG VIAL IVP SCH (08:22)
[2017-09-09] MEDS: Erythromycin Susp 200 MG/5 ML UDC PO SCH ×4 (08:25→21:52)
[2017-09-09] MEDS: Nystatin POWDER 30 GM BOTTLE TP SCH ×2 (08:26→21:17)
[2017-09-09 08:54] LABS: BUN/Creatinine Ratio 24 (6-26); Blood Urea Nitrogen 11 mg/dL (8-23); Calcium 8.2 mg/dL (8.6-10.3); Carbon Dioxide 33 mEq/L (23-29); Chloride 104 mEq/L (98-107); Glucose 237 mg/dL (70-105); Osmolality,Calculated 305 (280-300); Potassium 3.1 mEq/L (3.5-5.1); Sodium 144 mEq/L (136-145); eGFR For African Americans > 60 (> 60); eGFR For Non-African Americans > 60 (> 60)
--- NOTE | 2017-09-09 10:43 | Internal Med Progress Note ---
<Cali Johnson - Last Filed: 09/09/17 10:40> Date of Encounter: 09/09/17 Time of Encounter: 07:50 - Assessment and plan (1) Partial small bowel obstruction Current Visit: Yes Status: Acute Assessment and plan: s/p abdominal surgery for lysis of adhesions on 09/04/17. Patient has abdominal distention, tenderness palpation, hypoactive bowel sounds , absence of flatulence or bowel movements. NG tube in place. Diet advanced to limited clear liquids. Gen Surgery following, appreciated continued recommendation of advancing diet and post surgical care. Spoke with Isela (Surgery resident), plan to continue abx for 10 days post surgery. Patient on ciprofloxacin and flagyl. Update: Patient noted to have BM yesterday and today. Continue to advance diet. (2) Tachycardia Current Visit: Yes Status: Acute Assessment and plan: Patient has a history of tachycardia, Rate controlled - Home medication Coreg 3.125 twice a day - Currently not taking beta jose g as she is nothing by mouth prior to potential surgery. - Metoprolol 5 mg IV every 6 hours Scheduled with holding parameters. (3) Insulin dependent diabetes mellitus Current Visit: Yes Status: Chronic Assessment and plan: Known type 2 diabetes insulin-dependent. Patient noted to be taking glucose tablets/sugar. - Hold Levemir - Subcutaneous medium-dose sliding scale Q6hrs. - Before meals at bedtime glucose checks. Diet advanced to limited clear liquids, tolerating well. Advance diet per surgery recommendations. (4) CAD (coronary artery disease) Current Visit: No Status: Chronic Assessment and plan: Coronary artery disease, stable. Qualifiers: Coronary Disease-Associated Artery/Lesion type: [place] artery [place] vs. transplanted heart: [place] heart Associated angina: without angina Qualified Code(s): I25.10 - Atherosclerotic heart disease of [place] coronary artery without angina pectoris (5) DVT prophylaxis Current Visit: No Status: Acute Assessment and plan: Subcutaneous Heparin. (6) COPD with exacerbation Current Visit: Yes Status: Resolved Assessment and plan: Previously started on steroids for AECOPD. No acute respiratory issues currently , will work to taper steroids. - Time Spent With Patient less than 15 minutes - Subjective Interval history: Patient awake in bed, drinking tea. Notes BM last night and continued flatulence. or BM. NG in place, with small amount of dark thick secretions in canister. Diet advanced to limited clear liquids yesterday; patient denies nausea, vomiting, worsening abd pain. No acute distress. - Constitutional Vitals: Temp Pulse Resp BP Pulse Ox 97.9 F 85 14 149/80 99 09/09/17 06:23 09/09/17 06:23 09/09/17 06:23 09/09/17 06:23 09/09/17 06:23 General appearance: Present: cooperative, A&O X 3, pleasant, answers questions appropriately - Head Head exam: Present: atraumatic, normocephalic - Eye Eye exam: Present: EOMI, conjuntiva pink - Neck Neck exam general surgery: Present: full ROM, supple, trachea midline. Absent: lymphadenopathy - Respiratory Respiratory exam: Present: decreased breath sounds, CTAB. Absent: accessory muscle use, rales, rhonchi, wheezes - Cardiovascular Cardiovascular exam: Present: RRR, +S1, +S2. Absent: diastolic murmur, gallop, rubs, systolic murmur - GI/Abdominal GI/Abdominal exam: Present: hypoactive bowel sounds, soft, no peritoneal signs. Absent: distended, tenderness - Extremities Exam Extremities exam: Present: warm. Absent: calf tenderness, cyanotic, pedal edema - Neurological Exam Neurological exam: Present: alert, oriented X3, no focal deficits. Absent: facial droop, speech deficit - Skin Skin exam: Present: dry, intact Internal Medicine: Result - Labs CBC & Chem 7: 09/09/17 07:26 09/09/17 07:26 Labs: Short CBC 09/09/17 Range/Units 07:26 WBC 8.3 (4.3-11.1) K/mcL Hgb 10.7 L (11.5-15.4) g/dL Hct 35.2 L (35.3-44.9) % Plt Count 205 (140-400) K/mcL Neutrophils # 7.1 (1.6-8.9) K/mcL BMP 09/09/17 07:26 Sodium 144 Potassium 3.1 L Chloride 104 Carbon Dioxide 33 H BUN 11 Creatinine 0.45 L Glucose 237 H Calcium 8.2 L - VTE Documentation of Mechanical Device: Intermittent pneumatic compression device Consult Discharge Plan - Plan Additional Instructions: Please shower as he regularly do, daily. No tub baths for 2 weeks. Wash incisions with soap and water and pat dry daily. No lifting, pushing, or pulling more than 15 pounds for 6 weeks. [address] driving until off narcotics and safely able to react in the vehicle. Continue regular diet as tolerated. May ambulate and climb stairs as tolerated. Referrals: Lisa Brown CNP [Primary Care Provider] - 09/08/17 2:15 pm Chelsey Guzman MD [Partnered Physician] - 09/11/17 2:15 pm Checo Albrecht DO [Partnered Physician] - 09/15/17 9:20 am Fermin Sanderson CNP [Advanced Practice Nurse] - 09/04/17 10:30 am Makenzie Pereira CNP [Advanced Practice Nurse] - 09/23/17 1:00 pm <Srinath Gannon - Last Filed: 09/09/17 16:42> Date of Encounter: 09/09/17 - Constitutional Vitals: Temp Pulse Resp BP Pulse Ox 97.6 F 96 14 140/94 93 09/09/17 14:25 09/09/17 14:25 09/09/17 14:25 09/09/17 14:25 09/09/17 14:25 Internal Medicine: Result - Labs CBC & Chem 7: 09/09/17 07:26 09/09/17 07:26 Labs: Short CBC 09/09/17 Range/Units 07:26 WBC 8.3 (4.3-11.1) K/mcL Hgb 10.7 L (11.5-15.4) g/dL Hct 35.2 L (35.3-44.9) % Plt Count 205 (140-400) K/mcL Neutrophils # 7.1 (1.6-8.9) K/mcL BMP 09/09/17 07:26 Sodium 144 Potassium 3.1 L Chloride 104 Carbon Dioxide 33 H BUN 11 Creatinine 0.45 L Glucose 237 H Calcium 8.2 L - Attending Attestation Resume oral medications Start oral Solu-Medrol, oral beta jose g Consider discharge as stable and tolerating diet in the morning Patient requesting Ativan and oxycodone oral as needed I examined this patient and my medical decision-making was reviewed with the Resident Physician. I agree with the documented findings, disposition and treatment plan as described except to the extent set forth below.
--- NOTE | 2017-09-09 10:45 | General Surgery Progress Note ---
<Isela Smith H - Last Filed: 09/09/17 10:48> Date of Encounter: 09/09/17 Time of Encounter: 10:43 - Assessment and Plan (1) Partial small bowel obstruction Current Visit: Yes Status: Acute POD # 5 ex-laparotomy with lysis of adhesions. Patient resting comfortably this morning. -Patient had a bowel movement yesterday. Good flatus. -DC'd reglan -Patient ordered some mupirocin ointment for nasal irritation status post NG tube removal. -Advanced diet today. Advance to soft diet/full liquid diet with ensure high- protein for lunch. Regular cardiac diet for dinner. Patient was instructed to avoid carbonation. -Patient stable for discharge from a surgical standpoint tomorrow. Discharge planning per primary team. Please surgical instruction upon discharge. Subjective Patient reports: no new complaints, feels better, pain is less, tolerating liquids well, voiding w/o difficulty, bowel movement, shortness of breath, afebrile Objective Vital Signs - Last 8 Hours Temp Pulse Resp BP Pulse Ox 09/09/17 06:23 97.9 F 85 14 149/80 99 09/09/17 05:00 98.1 F 88 18 128/85 98 09/09/17 03:36 13 98 Intake and Output 09/08/17 09/09/17 09/09/17 23:59 07:59 15:59 Intake Total 1190 / 1190 460 / 460 Output Total 365 / 365 150 / 150 100 / 100 Balance 825 / 825 -150 / -150 360 / 360 Intake: IV Fluids 200 / 200 100 / 100 Cipro Premix 400 MG/200 ML 400 200 / 200 mg In 200 ml @ 200 mls/hr IVPB Q12HR [facility] Rx#:[id number] Potassium Chloride 10 mEq/100mL 100 / 100 10 meq In 100 ml @ 100 mls/hr IVPB Q1H [facility] Rx#:[id number] Oral 990 / 990 360 / 360 Output: Urine 365 / 365 150 / 150 100 / 100 Other: Meal Dinner Breakfast Percent of Meal Consumed 0% 0% # Voids 1 Weight 70.1 kg Blood Glucose* 280 234 Patient Weight 09/09/17 23:59 Weight 70.1 kg - General physical appearance well developed, well nourished, no distress - ENT atraumatic, normocephalic - Neck Neck exam: no venous distension - Respiratory normal expansion, other (diminished air movement at bilateral bases) - Cardiovascular Cardiovascular exam: Present: RRR, no murmurs/rubs/gallops - Abdomen Abdomen: Present: bowel sounds present, soft, non tender. Absent: distended, tender, guarding, rebound, rigid Hernia: none - Incision Incision: Present: clean and dry, intact - Psychiatric oriented to time, oriented to person, oriented to place, speech is normal, memory intact - Labs 09/09/17 07:26 09/09/17 07:26 Diabetes panel 09/09/17 Range/Units 07:26 Sodium 144 (136-145) mEq/L Potassium 3.1 L (3.5-5.1) mEq/L Chloride 104 (98-107) mEq/L Carbon Dioxide 33 H (23-29) mEq/L BUN 11 (8-23) mg/dL Creatinine 0.45 L (0.60-1.20) mg/dL Glucose 237 H (70-105) mg/dL Calcium 8.2 L (8.6-10.3) mg/dL Calcium panel 09/09/17 Range/Units 07:26 Calcium 8.2 L (8.6-10.3) mg/dL Pituitary panel 09/09/17 Range/Units 07:26 Sodium 144 (136-145) mEq/L Potassium 3.1 L (3.5-5.1) mEq/L Chloride 104 (98-107) mEq/L Carbon Dioxide 33 H (23-29) mEq/L BUN 11 (8-23) mg/dL Creatinine 0.45 L (0.60-1.20) mg/dL Glucose 237 H (70-105) mg/dL Calcium 8.2 L (8.6-10.3) mg/dL Adrenal panel 09/09/17 Range/Units 07:26 Sodium 144 (136-145) mEq/L Potassium 3.1 L (3.5-5.1) mEq/L Chloride 104 (98-107) mEq/L Carbon Dioxide 33 H (23-29) mEq/L BUN 11 (8-23) mg/dL Creatinine 0.45 L (0.60-1.20) mg/dL Glucose 237 H (70-105) mg/dL Calcium 8.2 L (8.6-10.3) mg/dL - VTE Documentation of Mechanical Device: Intermittent pneumatic compression device Consult Discharge Plan - Plan Additional Instructions: Please shower as he regularly do, daily. No tub baths for 2 weeks. Wash incisions with soap and water and pat dry daily. No lifting, pushing, or pulling more than 15 pounds for 6 weeks. No [address] until off narcotics and safely able to react in the vehicle. Continue regular diet as tolerated. May ambulate and climb stairs as tolerated. Referrals: Lisa Brown CNP [Primary Care Provider] - 09/08/17 2:15 pm Chelsey Guzman MD [Partnered Physician] - 09/11/17 2:15 pm Checo Albrecht DO [Partnered Physician] - 09/15/17 9:20 am Fermin Sanderson CNP [Advanced Practice Nurse] - 09/04/17 10:30 am Makenzie Pereira CNP [Advanced Practice Nurse] - 09/23/17 1:00 pm <Jay Mixon - Last Filed: 09/09/17 14:35> Date of Encounter: 09/09/17 - Assessment and Plan (1) Partial small bowel obstruction Current Visit: Yes Status: Acute Objective Vital Signs - Last 8 Hours Temp Pulse Resp BP Pulse Ox 09/09/17 14:25 97.6 F 96 14 140/94 93 09/09/17 11:17 18 91 09/09/17 10:38 98.1 F 98 14 129/86 93 Intake and Output 09/08/17 09/09/17 09/09/17 23:59 07:59 15:59 Intake Total 1190 / 1190 100 / 100 940 / 940 Output Total 365 / 365 150 / 150 400 / 400 Balance 825 / 825 -50 / -50 540 / 540 Intake: IV Fluids 200 / 200 100 / 100 100 / 100 Cipro Premix 400 MG/200 ML 400 200 / 200 mg In 200 ml @ 200 mls/hr IVPB Q12HR [facility] Rx#:[id number] Flagyl Premix 500 MG/100 ML 500 100 / 100 mg In 100 ml @ 100 mls/hr IVPB Q8H [facility] Rx#:[id number] Potassium Chloride 10 mEq/100mL 100 / 100 10 meq In 100 ml @ 100 mls/hr IVPB Q1H [facility] Rx#:[id number] Oral 990 / 990 840 / 840 Output: Urine 365 / 365 150 / 150 400 / 400 Other: Meal Dinner Lunch Percent of Meal Consumed 0% 95% # Voids 1 Weight 70.1 kg Blood Glucose* 280 234 339 Patient Weight 09/09/17 23:59 Weight 70.1 kg - Labs 09/09/17 07:26 09/09/17 07:26 Diabetes panel 09/09/17 Range/Units 07:26 Sodium 144 (136-145) mEq/L Potassium 3.1 L (3.5-5.1) mEq/L Chloride 104 (98-107) mEq/L Carbon Dioxide 33 H (23-29) mEq/L BUN 11 (8-23) mg/dL Creatinine 0.45 L (0.60-1.20) mg/dL Glucose 237 H (70-105) mg/dL Calcium 8.2 L (8.6-10.3) mg/dL Calcium panel 09/09/17 Range/Units 07:26 Calcium 8.2 L (8.6-10.3) mg/dL Pituitary panel 09/09/17 Range/Units 07:26 Sodium 144 (136-145) mEq/L Potassium 3.1 L (3.5-5.1) mEq/L Chloride 104 (98-107) mEq/L Carbon Dioxide 33 H (23-29) mEq/L BUN 11 (8-23) mg/dL Creatinine 0.45 L (0.60-1.20) mg/dL Glucose 237 H (70-105) mg/dL Calcium 8.2 L (8.6-10.3) mg/dL Adrenal panel 09/09/17 Range/Units 07:26 Sodium 144 (136-145) mEq/L Potassium 3.1 L (3.5-5.1) mEq/L Chloride 104 (98-107) mEq/L Carbon Dioxide 33 H (23-29) mEq/L BUN 11 (8-23) mg/dL Creatinine 0.45 L (0.60-1.20) mg/dL Glucose 237 H (70-105) mg/dL Calcium 8.2 L (8.6-10.3) mg/dL - Attending Attestation I examined this patient and my medical decision-making was reviewed with the Resident Physician. I agree with the documented findings, disposition and treatment plan as described except to the extent set forth below. The patient is seen and evaluated with the clinical nurse practitioner and the resident on morning rounds. She is tolerating clear liquids. She has had multiple bowel movements. I am very pleased with her overall clinical course. We will advance to full liquids. She may be discharged home when tolerating regular diet. Jay Mixon MD FACS
[2017-09-09] MEDS: Budesonide/Formoterol 160/4.5 MDI IH SCH ×2 (11:17→22:34)
[2017-09-09] MEDS: methylPREDNISolone 4 MG TABLET PO SCH (18:35)
[2017-09-09] MEDS ORDERED: Insulin LISPRO 300 UNITS/3 ML VIAL SQ SCH (21:00)
[2017-09-09] MEDS: Ranolazine 500 MG TAB.ER.12H PO SCH (21:17)
[2017-09-10] MEDS: OXYCODONE Oral CONC 10 MG/0.5 ML ORAL.SYG SL PRN ×3 (00:52→09:28)
[2017-09-10] MEDS: *HR* LORazepam 2 MG/ML VIAL IVP PRN (00:52)
[2017-09-10 03:35] LABS: Basophils % 0.3 %; Hematocrit 34.5 % (35.3-44.9); Hemoglobin 10.8 g/dL (11.5-15.4); Immature Granulocytes % 2.1 % (0-4); Lymphocytes # 0.8 K/mcL (0.6-4.6); Lymphocytes % 8.1 %; Mean Corpuscular HGB Conc 31.3 g/dL (31.6-35.5); Mean Corpuscular Hemoglobin 27.8 pg (28.0-33.3); Mean Corpuscular Volume 88.9 fL (83.0-100.0); Mean Platelet Volume 11.3 fL (9.4-12.4); Monocytes # 0.6 K/mcL (0.0-1.3); Monocytes % 5.6 %; Neutrophils # 8.4 K/mcL (1.6-8.9); Platelet Count 200 K/mcL (140-400); Red Blood Count 3.88 M/mcL (3.82-4.97); Red Cell Distribution Width 14.6 % (11.5-14.5); Segmented Neutrophils % 83.9 %
[2017-09-10 04:06] LABS: BUN/Creatinine Ratio 17 (6-26); Blood Urea Nitrogen 9 mg/dL (8-23); Calcium 8.5 mg/dL (8.6-10.3); Carbon Dioxide 31 mEq/L (23-29); Chloride 104 mEq/L (98-107); Glucose 332 mg/dL (70-105); Osmolality,Calculated 304 (280-300); Potassium 3.4 mEq/L (3.5-5.1); Sodium 141 mEq/L (136-145); eGFR For African Americans > 60 (> 60); eGFR For Non-African Americans > 60 (> 60)
[2017-09-10] MEDS: *HR* Heparin 5,000 UNIT/ML VIAL SQ SCH ×2 (04:54→17:14)
[2017-09-10] MEDS: *HR* Promethazine 25 MG/ML VIAL IVP PRN (05:01)
[2017-09-10] MEDS: Budesonide/Formoterol 160/4.5 MDI IH SCH ×2 (07:45→19:45)
--- NOTE | 2017-09-10 08:29 | General Surgery Progress Note ---
<DavidnoheliaIsela cunha - Last Filed: 09/10/17 10:24> Date of Encounter: 09/10/17 Time of Encounter: 08:27 - Assessment and Plan (1) Partial small bowel obstruction Status: Acute POD # 6 ex-laparotomy with lysis of adhesions. Patient resting comfortably this morning. -Bowel movements Good flatus. Benign abdominal exam. -Overnight patient abdominal incision started draining sanguinous fluid which soaked two ABD pads. Drainage has stopped. This morning there is an abdominal binder in place. Surgical incision site is clean, dry, and intact. There is no surrounding erythema or induration to indicate infection. Suspect drainage of underlying seroma. Will leave chanell in place, and will continue to monitor. -Patient tolerating cardiac diet. Patient has instructions to avoid carbonation. -We will continue to follow. -Please see surgical instructions upon discharge. Subjective Patient reports: no new complaints, pain is less, tolerating a regular diet, voiding w/o difficulty, flatus, bowel movement, shortness of breath, afebrile Objective Vital Signs - Last 8 Hours Temp Pulse Resp BP Pulse Ox 09/10/17 07:45 16 94 09/10/17 06:49 98.1 F 98 15 117/92 94 09/10/17 03:57 97.7 F 99 18 112/75 95 Intake and Output 09/09/17 09/10/17 09/10/17 23:59 07:59 15:59 Intake Total 240 / 240 120 / 120 Output Total 425 / 425 Balance 240 / 240 -305 / -305 Intake: Oral 240 / 240 120 / 120 Output: Urine 425 / 425 Other: Meal Dinner Percent of Meal Consumed 100% # Voids 0 Weight 71.4 kg Blood Glucose* 269 376 Patient Weight 09/10/17 23:59 Weight 71.4 kg - General physical appearance well developed, well nourished, chronically ill - Eyes PERRL, normal ocular movement - Neck Neck exam: trachea midline - Respiratory normal expansion, normal respiratory effort, other (Diminished air movement at the bilateral bases.) - Cardiovascular Cardiovascular exam: Present: RRR, no murmurs/rubs/gallops - Abdomen Abdomen: Present: bowel sounds present, soft, non tender - Incision Incision: Present: draining, serous (Serosanguineous fluid draining from the inferior aspect of the surgical incision.) - Neurologic CN 2-12 grossly intact, normal coordination, normal sensation - Psychiatric oriented to time, oriented to person, oriented to place, speech is normal, memory intact - Labs 09/10/17 03:22 09/10/17 03:22 Diabetes panel 09/09/17 09/10/17 Range/Units 07:26 03:22 Sodium 144 141 (136-145) mEq/L Potassium 3.1 L 3.4 L (3.5-5.1) mEq/L Chloride 104 104 (98-107) mEq/L Carbon Dioxide 33 H 31 H (23-29) mEq/L BUN 11 9 (8-23) mg/dL Creatinine 0.45 L 0.52 L (0.60-1.20) mg/dL Glucose 237 H 332 H (70-105) mg/dL Calcium 8.2 L 8.5 L (8.6-10.3) mg/dL Calcium panel 09/09/17 09/10/17 Range/Units 07:26 03:22 Calcium 8.2 L 8.5 L (8.6-10.3) mg/dL Pituitary panel 09/09/17 09/10/17 Range/Units 07:26 03:22 Sodium 144 141 (136-145) mEq/L Potassium 3.1 L 3.4 L (3.5-5.1) mEq/L Chloride 104 104 (98-107) mEq/L Carbon Dioxide 33 H 31 H (23-29) mEq/L BUN 11 9 (8-23) mg/dL Creatinine 0.45 L 0.52 L (0.60-1.20) mg/dL Glucose 237 H 332 H (70-105) mg/dL Calcium 8.2 L 8.5 L (8.6-10.3) mg/dL Adrenal panel 09/09/17 09/10/17 Range/Units 07:26 03:22 Sodium 144 141 (136-145) mEq/L Potassium 3.1 L 3.4 L (3.5-5.1) mEq/L Chloride 104 104 (98-107) mEq/L Carbon Dioxide 33 H 31 H (23-29) mEq/L BUN 11 9 (8-23) mg/dL Creatinine 0.45 L 0.52 L (0.60-1.20) mg/dL Glucose 237 H 332 H (70-105) mg/dL Calcium 8.2 L 8.5 L (8.6-10.3) mg/dL - VTE Documentation of Mechanical Device: Intermittent pneumatic compression device Consult Discharge Plan - Plan Additional Instructions: Please shower as he regularly do, daily. No tub baths for 2 weeks. Wash incisions with soap and water and pat dry daily. No lifting, pushing, or pulling more than 15 pounds for 6 weeks. No driving until off narcotics and safely able to react in the vehicle. Continue regular diet as tolerated. May ambulate and climb stairs as tolerated. -Please follow up with Surgery as outpatient. -Please follow up with PCP after released from rehab. -Plan to complete inpatient rehab to build strength. Referrals: Lisa Brown CNP [Primary Care Provider] - 09/16/17 2:15 pm Chelsey Guzman MD [Partnered Physician] - 09/11/17 2:15 pm Checo Albrecht DO [Partnered Physician] - 09/15/17 9:20 am Makenzie Pereira CNP [Advanced Practice Nurse] - 09/23/17 1:00 pm Prescriptions: OxyCODONE Immed Rel [Roxicodone 5 MG] 5 mg PO Q6HR PRN 3 Days #12 tablet PRN Reason: moderate to severe pain Omeprazole [PriLOSEC] 40 mg PO DAILY@0730 #30 capsule.Jay Alfaro - Last Filed: 09/15/17 08:36> Date of Encounter: 09/10/17 - Assessment and Plan (1) Partial small bowel obstruction Status: Acute Objective - Labs 09/12/17 05:49 09/12/17 05:49 - Attending Attestation I examined this patient and my medical decision-making was reviewed with the Resident Physician. I agree with the documented findings, disposition and treatment plan as described except to the extent set forth below. The patient is seen and evaluated on morning rounds with the resident. She continues to make excellent progress. We will discontinue the nasogastric tube and advance her diet as she develops bowel activity. Jay Mixon MD FACS
[2017-09-10] MEDS ORDERED: 0.9 % Sodium Chloride 250 ML ONE (09:22)
[2017-09-10] MEDS: methylPREDNISolone 4 MG TABLET PO SCH ×2 (09:27→17:14)
[2017-09-10] MEDS: Erythromycin Susp 200 MG/5 ML UDC PO SCH (09:27)
[2017-09-10] MEDS: Aspirin Enteric Coated 81 MG Tablet PO SCH (09:27)
[2017-09-10] MEDS: Ranolazine 500 MG TAB.ER.12H PO SCH ×2 (09:27→22:56)
[2017-09-10] MEDS: Insulin LISPRO 300 UNITS/3 ML VIAL SQ SCH ×4 (09:37→22:59)
[2017-09-10] MEDS: (Roflumilast [Daliresp] 500 MCG) PO SCH (09:39)
[2017-09-10] MEDS: Nystatin POWDER 30 GM BOTTLE TP SCH ×2 (09:39→22:57)
[2017-09-10] MEDS ORDERED: Acetaminophen 325 MG TABLET PO PRN (15:47)
--- NOTE | 2017-09-10 15:57 | Internal Med Progress Note ---
<Ramirez Mccall - Last Filed: 09/10/17 15:52> Date of Encounter: 09/10/17 Time of Encounter: 15:52 - Assessment and plan (1) Partial small bowel obstruction Current Visit: Yes Status: Acute Assessment and plan: Postop day 6 status post small bowel resection. Patient seems to be doing well. She did have some drainage from her surgical site that surgery feels is related to an underlying seroma, this is seemed to decrease. Patient is tolerating her diet well. Possible discharge tomorrow. (2) Insulin dependent diabetes mellitus Current Visit: Yes Status: Chronic Assessment and plan: Blood sugars elevated, likely related to steroid use. We will increase sliding scale to high dose and continue to monitor. Adjust insulin off readings. (3) COPD with exacerbation Current Visit: Yes Status: Resolved Assessment and plan: Previously started on steroids for acute exacerbation. Currently stable, will continue taper steroids. - Subjective Interval history: Patient seen and examined at bedside. Patient states that she feels pretty good today. She feels worn out and has been sleeping a lot lately. Otherwise she is tolerating diet well, states the drainage from her abdominal incision since morning has resolved. She had no other complaints. - Constitutional Vitals: Temp Pulse Resp BP Pulse Ox 98 F 118 16 118/94 97 09/10/17 11:02 09/10/17 11:02 09/10/17 07:45 09/10/17 11:02 09/10/17 11:02 General appearance: Present: cooperative, A&O X 3, pleasant, answers questions appropriately - Respiratory Respiratory exam: Present: CTAB. Absent: rales, rhonchi, wheezes - Cardiovascular Cardiovascular exam: Present: RRR. Absent: gallop, rubs, systolic murmur - GI/Abdominal GI/Abdominal exam: Present: normal bowel sounds, soft. Absent: distended, tenderness - Extremities Exam Extremities exam: Present: pedal edema (trace). Absent: warm - Neurological Exam Neurological exam: Present: no focal deficits Internal Medicine: Result - Labs CBC & Chem 7: 09/10/17 03:22 09/10/17 03:22 Labs: Short CBC 09/10/17 Range/Units 03:22 WBC 10.0 (4.3-11.1) K/mcL Hgb 10.8 L (11.5-15.4) g/dL Hct 34.5 L (35.3-44.9) % Plt Count 200 (140-400) K/mcL Neutrophils # 8.4 (1.6-8.9) K/mcL BMP 09/10/17 03:22 Sodium 141 Potassium 3.4 L Chloride 104 Carbon Dioxide 31 H BUN 9 Creatinine 0.52 L Glucose 332 H Calcium 8.5 L - VTE Documentation of Mechanical Device: Intermittent pneumatic compression device Consult Discharge Plan - Plan Additional Instructions: Please shower as he regularly do, daily. No tub baths for 2 weeks. Wash incisions with soap and water and pat dry daily. No lifting, pushing, or pulling more than 15 pounds for 6 weeks. No driving until off narcotics and safely able to react in the vehicle. Continue regular diet as tolerated. May ambulate and climb stairs as tolerated. Referrals: Lisa Brown CNP [Primary Care Provider] - 09/08/17 2:15 pm Chelsey Guzman MD [Partnered Physician] - 09/11/17 2:15 pm Checo Albrecht DO [Partnered Physician] - 09/15/17 9:20 am Makenzie Pereira CNP [Advanced Practice Nurse] - 09/23/17 1:00 pm <Srinath Gannon H - Last Filed: 09/10/17 16:26> Date of Encounter: 09/10/17 - Constitutional Vitals: Temp Pulse Resp BP Pulse Ox 98 F 118 16 118/94 97 09/10/17 11:02 09/10/17 11:02 09/10/17 07:45 09/10/17 11:02 09/10/17 11:02 Internal Medicine: Result - Labs CBC & Chem 7: 09/10/17 03:22 09/10/17 03:22 Labs: Short CBC 09/10/17 Range/Units 03:22 WBC 10.0 (4.3-11.1) K/mcL Hgb 10.8 L (11.5-15.4) g/dL Hct 34.5 L (35.3-44.9) % Plt Count 200 (140-400) K/mcL Neutrophils # 8.4 (1.6-8.9) K/mcL [facility] 09/10/17 03:22 Sodium 141 Potassium 3.4 L Chloride 104 Carbon Dioxide 31 H BUN 9 Creatinine 0.52 L Glucose 332 H Calcium 8.5 L - Attending Attestation Titrate oral Solu-Medrol Tachycardia, consider increasing dose of Coreg History of CAD, stable I examined this patient and my medical decision-making was reviewed with the Resident Physician. I agree with the documented findings, disposition and treatment plan as described except to the extent set forth below.
[2017-09-10] MEDS: *HR* OxyCODONE Immed Rel 5 MG TABLET PO PRN (23:53)
[2017-09-11 04:10] LABS: Basophils # 0.1 K/mcL (0.0-0.2); Basophils % 0.5 %; Eosinophils % 0.2 %; Hematocrit 35.8 % (35.3-44.9); Hemoglobin 11.1 g/dL (11.5-15.4); Immature Granulocytes % 2.5 % (0-4); Lymphocytes # 1.2 K/mcL (0.6-4.6); Lymphocytes % 9.9 %; Mean Corpuscular Hemoglobin 27.9 pg (28.0-33.3); Mean Corpuscular Volume 89.9 fL (83.0-100.0); Mean Platelet Volume 12.5 fL (9.4-12.4); Monocytes # 0.7 K/mcL (0.0-1.3); Monocytes % 5.3 %; Nucleated Red Blood Cells 0.5 /100 WBC (0); Platelet Count 151 K/mcL (140-400); Red Blood Count 3.98 M/mcL (3.82-4.97); Red Cell Distribution Width 14.4 % (11.5-14.5); Segmented Neutrophils % 81.6 %
[2017-09-11 04:42] LABS: BUN/Creatinine Ratio 25 (6-26); Blood Urea Nitrogen 15 mg/dL (8-23); Calcium 8.3 mg/dL (8.6-10.3); Carbon Dioxide 28 mEq/L (23-29); Chloride 101 mEq/L (98-107); Glucose 387 mg/dL (70-105); Magnesium 1.5 mg/dL (1.6-2.6); Osmolality,Calculated 297 (280-300); Potassium 4.4 mEq/L (3.5-5.1); Sodium 135 mEq/L (136-145); eGFR For African Americans > 60 (> 60); eGFR For Non-African Americans > 60 (> 60)
[2017-09-11] MEDS: *HR* Heparin 5,000 UNIT/ML VIAL SQ SCH ×2 (05:40→16:35)
[2017-09-11] MEDS: *HR* OxyCODONE Immed Rel 5 MG TABLET PO PRN ×3 (05:44→21:38)
--- NOTE | 2017-09-11 08:00 | General Surgery Progress Note ---
<Makenzie Pereira Manolo - Last Filed: 09/11/17 07:57> Date of Encounter: 09/11/17 Time of Encounter: 07:45 - Assessment and Plan (1) Small bowel obstruction Status: Acute Date of procedure: 09/04/17 Pre-op diagnosis: Small bowel obstruction, adhesions Post-op diagnosis: same Procedure: Exploratory laparotomy lysis of adhesions Anesthesia: TERRELL Surgeon: Jay Mixon POD #7 as above. She states she is having multiple bowel movements, tolerating her soft diet without nausea or vomiting, abdominal discomfort is overall controlled. Her incisions are predominantly intact. There is too small areas inferior to the umbilicus that are slightly open and draining serous material. There is no surrounding errythema, induration, or notable purulent drainage. Plan: continue ABD pads and tape for serous drainage. May keep abdominal binder in place for comfort. There is no indication to remove chanell or place packing at this time. If drainage changes then will consider additional intervention if indicated. DC planning per primary team. Of note, the patient states she does not feel strong enough to transfer herself to or from the bedside commode, but notably refuses ECF/rehab placement. She informs this end P this a.m. that her stepson can stay with her but she will not be able to have 24-hour care and will require Meals on Wheels to be delivered. She states she does not feel she can take care of herself by refuses rehab placement at this time. Given her current reports of weakness, inability to care for herself, and recent open laparotomy, I did recommend to this patient that she adhered to the recommendations of the primary team for rehab/ECF placement. I do not feel that she is safe to care for herself at home without 24-hour availability of assistance. If she is able to d/c today, please see d/c planning from surgical perspective. Surgery will sign off at this time. Please call or reconsult if needs arise. Thank for allowing us to participate in Ms. Dela Cruz's care. Subjective Patient reports: no new complaints, feels better, still having pain, pain is less, tolerating a regular diet, voiding w/o difficulty, flatus, bowel movement , shortness of breath (chronic), afebrile, other (feelings of weakness and inability to transfer herself to and from [facility] Objective Vital Signs - Last 8 Hours Temp Pulse Resp BP Pulse Ox 09/11/17 06:59 97.7 F 96 17 130/79 100 09/11/17 00:30 122/84 09/11/17 00:25 112/82 96 Intake and Output 09/10/17 09/10/17 09/11/17 15:59 23:59 07:59 Intake Total 340 / 340 0 / 0 0 / 0 Balance 340 / 340 0 / 0 0 / 0 Intake: IV Fluids 100 / 100 Potassium Chloride 10 mEq/100mL 100 / 100 10 meq In 100 ml @ 100 mls/hr IVPB Q1H [facility] Rx#:[id number] Oral 240 / 240 0 / 0 0 / 0 Other: Meal Breakfast Percent of Meal Consumed 100% # Voids 0 0 Weight 72.3 kg Blood Glucose* 242 117 305 Patient Weight 09/11/17 23:59 Weight 72.3 kg - General physical appearance well nourished, no distress, no pain - Eyes normal ocular movement - ENT atraumatic, normocephalic - Neck Neck exam: trachea midline, no venous distension - Respiratory other (Decreaed; rhonchi; conversational dyspnea) - Cardiovascular Cardiovascular exam: Present: murmurs, no murmurs/rubs/gallops - Abdomen Abdomen: Present: bowel sounds present, soft, tender (Expected postoperative tenderness) - Incision Incision: Present: intact, serous (No surrounding erythema, cellulitis, or purulent drainage.) - Integumentary no growths, other (Multiple areas of ecchymosis on bilateral arms and abdomen.) - Neurologic normal sensation - Musculoskeletal normal posture, other (States generalized weakness) - Psychiatric oriented to time, oriented to person, oriented to place, speech is normal, memory intact - Labs 09/11/17 03:35 09/11/17 03:35 Diabetes panel 09/11/17 Range/Units 03:35 Sodium 135 L (136-145) mEq/L Potassium 4.4 (3.5-5.1) mEq/L Chloride 101 (98-107) mEq/L Carbon Dioxide 28 (23-29) mEq/L BUN 15 (8-23) mg/dL Creatinine 0.60 (0.60-1.20) mg/dL Glucose 387 H (70-105) mg/dL Calcium 8.3 L (8.6-10.3) mg/dL Calcium panel 09/11/17 Range/Units 03:35 Calcium 8.3 L (8.6-10.3) mg/dL Pituitary panel 09/11/17 Range/Units 03:35 Sodium 135 L (136-145) mEq/L Potassium 4.4 (3.5-5.1) mEq/L Chloride 101 (98-107) mEq/L Carbon Dioxide 28 (23-29) mEq/L BUN 15 (8-23) mg/dL Creatinine 0.60 (0.60-1.20) mg/dL Glucose 387 H (70-105) mg/dL Calcium 8.3 L (8.6-10.3) mg/dL Adrenal panel 09/11/17 Range/Units 03:35 Sodium 135 L (136-145) mEq/L Potassium 4.4 (3.5-5.1) mEq/L Chloride 101 (98-107) mEq/L Carbon Dioxide 28 (23-29) mEq/L BUN 15 (8-23) mg/dL Creatinine 0.60 (0.60-1.20) mg/dL Glucose 387 H (70-105) mg/dL Calcium 8.3 L (8.6-10.3) mg/dL - VTE Documentation of Mechanical Device: Intermittent pneumatic compression device Consult Discharge Plan - Plan Additional Instructions: Please shower as he regularly do, daily. No tub baths for 2 weeks. Wash incisions with soap and water and pat dry daily. No lifting, pushing, or pulling more than 15 pounds for 6 weeks. No driving until off narcotics and safely able to react in the vehicle. Continue regular diet as tolerated. May ambulate and climb stairs as tolerated. -Please follow up with Surgery as outpatient. -Please follow up with PCP after released from rehab. -Plan to complete inpatient rehab to build strength. Referrals: Lisa Brown CNP [Primary Care Provider] - 09/16/17 2:15 pm Chelsey Guzman MD [Partnered Physician] - 09/11/17 2:15 pm Checo Albrecht DO [Partnered Physician] - 09/15/17 9:20 am Makenzie Pereira CNP [Advanced Practice Nurse] - 09/23/17 1:00 pm Prescriptions: OxyCODONE Immed Rel [Roxicodone 5 MG] 5 mg PO Q6HR PRN 3 Days #12 tablet PRN Reason: moderate to severe pain Omeprazole [PriLOSEC] 40 mg PO DAILY@729 #30 capsule. <Jay Mixon - Last Filed: 09/15/17 08:45> Date of Encounter: 09/11/17 - Assessment and Plan (1) Partial small bowel obstruction Status: Acute Objective - Labs 09/12/17 05:49 09/12/17 05:49 - Attending Attestation I I have personally performed a face to face evaluation on this patient. I have reviewed and agree with the care plan. History and Exam by me shows: I evaluated the patient on morning rounds ensure the information with the clinical nurse practitioner. The patient is having multiple bowel movements and can advance her diet. I am very pleased with her overall clinical course. Jay Mixon MD FACS
[2017-09-11] MEDS: Budesonide/Formoterol 160/4.5 MDI IH SCH ×2 (08:09→20:13)
[2017-09-11] MEDS: Aspirin Enteric Coated 81 MG Tablet PO SCH (09:21)
[2017-09-11] MEDS: methylPREDNISolone 4 MG TABLET PO SCH ×2 (09:21→16:35)
[2017-09-11] MEDS: Ranolazine 500 MG TAB.ER.12H PO SCH ×2 (09:21→21:13)
[2017-09-11] MEDS: (Roflumilast [Daliresp] 500 MCG) PO SCH (09:22)
[2017-09-11] MEDS: *HR* LORazepam 2 MG/ML VIAL IVP PRN (09:25)
[2017-09-11] MEDS: Insulin LISPRO 300 UNITS/3 ML VIAL SQ SCH ×4 (09:37→21:15)
[2017-09-11] MEDS: Nystatin POWDER 30 GM BOTTLE TP SCH ×2 (09:54→21:14)
--- NOTE | 2017-09-11 10:48 | Internal Med Progress Note ---
<Cali Johnson - Last Filed: 09/11/17 11:33> Date of Encounter: 09/11/17 Time of Encounter: 08:15 - Assessment and plan (1) Partial small bowel obstruction Current Visit: Yes Status: Acute Assessment and plan: Postop day 7 status post small bowel resection. Patient seems to be doing well. She did have some drainage from her surgical site that surgery feels is related to an underlying seroma, this is seemed to decrease. Patient is tolerating her diet well. Considered discharge today, however concern for weakness and fall risk, pending assessment by PT. Possible discharge tomorrow. (2) Tachycardia Current Visit: Yes Status: Acute Assessment and plan: Patient has a history of tachycardia, Rate controlled - Home medication Coreg 3.125 twice a day -Home orl medication held prior to surgery, consider restarting. - Currently on Metoprolol 5 mg IV every 6 hours Scheduled with holding parameters. (3) Insulin dependent diabetes mellitus Current Visit: Yes Status: Chronic Assessment and plan: Blood sugars elevated, likely related to steroid use. We will increase sliding scale to high dose and continue to monitor. Adjust insulin off readings. (4) CAD (coronary artery disease) Current Visit: No Status: Chronic Assessment and plan: Coronary artery disease, stable. Qualifiers: Coronary Disease-Associated Artery/Lesion type: [place] artery [place] vs. transplanted heart: [place] heart Associated angina: without angina Qualified Code(s): I25.10 - Atherosclerotic heart disease of [place] coronary artery without angina pectoris (5) DVT prophylaxis Current Visit: No Status: Acute Assessment and plan: Subcutaneous Heparin. (6) COPD with exacerbation Current Visit: Yes Status: Resolved Assessment and plan: Previously started on steroids for acute exacerbation. Currently stable, will continue taper steroids. (7) Physical deconditioning Current Visit: Yes Status: Acute Assessment and plan: Patient notes she is having great difficulty transitioning herself from bed to toilet, concern for patient to be discharged home. Notes history of falls from feeling weak at home and not having support or supervision. Requesting physical therapy re-evaluate patient today for updated recommendations. - Time Spent With Patient 25 - 35 minutes - Subjective Interval history: Patient awake in bed, drinking soda. Notes regular BMs. Notes drainage from surgical slight, less today compared to yesterday. No acute distress. States difficulty and weakness transferring to chair or toilet. Refusing inpatient rehab at this time. Notes if she went home today there would be noone there to assist or monitor her and that she relies on "meals of wheels". - Constitutional Vitals: Temp Pulse Resp BP Pulse Ox 97.7 F 96 17 130/79 97 09/11/17 06:59 09/11/17 06:59 09/11/17 08:11 09/11/17 06:59 09/11/17 08:11 General appearance: Present: cooperative, A&O X 3, answers questions appropriately - Head Head exam: Present: atraumatic, normocephalic - Eye Eye exam: Present: EOMI - Neck Neck exam general surgery: Present: supple, trachea midline - Respiratory Respiratory exam: Present: CTAB. Absent: accessory muscle use, rales, rhonchi, wheezes - Cardiovascular Cardiovascular exam: Present: RRR, +S1, +S2. Absent: diastolic murmur, gallop, rubs, systolic murmur - GI/Abdominal GI/Abdominal exam: Present: normal bowel sounds, soft. Absent: distended, tenderness - Extremities Exam Extremities exam: Present: warm. Absent: calf tenderness, cyanotic - Neurological Exam Neurological exam: Present: alert, oriented X3, no focal deficits. Absent: facial droop, speech deficit - Skin Skin exam: Present: dry, intact Internal Medicine: Result - Labs CBC & Chem 7: 09/11/17 03:35 09/11/17 03:35 Labs: Short CBC 09/11/17 Range/Units 03:35 WBC 12.3 H (4.3-11.1) K/mcL Hgb 11.1 L (11.5-15.4) g/dL Hct 35.8 (35.3-44.9) % Plt Count 151 (140-400) K/mcL Neutrophils # 10.0 H (1.6-8.9) K/mcL BMP 09/11/17 03:35 Sodium 135 L Potassium 4.4 Chloride 101 Carbon Dioxide 28 BUN 15 Creatinine 0.60 Glucose 387 H Calcium 8.3 L - VTE Documentation of Mechanical Device: Intermittent pneumatic compression device Consult Discharge Plan - Plan Additional Instructions: Please shower as he regularly do, daily. No tub baths for 2 weeks. Wash incisions with soap and water and pat dry daily. No lifting, pushing, or pulling more than 15 pounds for 6 weeks. No driving until off narcotics and safely able to react in the vehicle. Continue regular diet as tolerated. May ambulate and climb stairs as tolerated. Referrals: Lisa Brown CNP [Primary Care Provider] - 09/16/17 2:15 pm Chelsey Guzman MD [Partnered Physician] - 09/11/17 2:15 pm Checo Albrecht DO [Partnered Physician] - 09/15/17 9:20 am Makenzie Pereira CNP [Advanced Practice Nurse] - 09/23/17 1:00 pm <Srinath Gannon H - Last Filed: 09/11/17 15:15> Date of Encounter: 09/11/17 - Constitutional Vitals: Temp Pulse Resp BP Pulse Ox 97.7 F 96 17 130/79 97 09/11/17 06:59 09/11/17 06:59 09/11/17 08:11 09/11/17 06:59 09/11/17 08:11 Internal Medicine: Result - Labs CBC & Chem 7: 09/11/17 03:35 09/11/17 03:35 Labs: Short CBC 09/11/17 Range/Units 03:35 WBC 12.3 H (4.3-11.1) K/mcL Hgb 11.1 L (11.5-15.4) g/dL Hct 35.8 (35.3-44.9) % Plt Count 151 (140-400) K/mcL Neutrophils # 10.0 H (1.6-8.9) K/mcL BMP 09/11/17 03:35 Sodium 135 L Potassium 4.4 Chloride 101 Carbon Dioxide 28 BUN 15 Creatinine 0.60 Glucose 387 H Calcium 8.3 L - Attending Attestation The patient is refusing to go to an ECF. Mentions that she prefers to go home. Risks of falling were explained We will reassess in the morning I examined this patient and my medical decision-making was reviewed with the Resident Physician. I agree with the documented findings, disposition and treatment plan as described except to the extent set forth below.
[2017-09-12] MEDS: *HR* LORazepam 2 MG/ML VIAL IVP PRN ×3 (00:54→15:20)
[2017-09-12] MEDS: *HR* Heparin 5,000 UNIT/ML VIAL SQ SCH (06:02)
[2017-09-12] MEDS: *HR* OxyCODONE Immed Rel 5 MG TABLET PO PRN ×2 (06:02→12:02)
[2017-09-12 06:04] LABS: Basophils % 0.4 %; Eosinophils % 0.3 %; Hematocrit 33.4 % (35.3-44.9); Hemoglobin 10.6 g/dL (11.5-15.4); Immature Granulocytes % 2.3 % (0-4); Lymphocytes # 1.4 K/mcL (0.6-4.6); Lymphocytes % 12.3 %; Mean Corpuscular HGB Conc 31.7 g/dL (31.6-35.5); Mean Corpuscular Hemoglobin 27.8 pg (28.0-33.3); Mean Corpuscular Volume 87.7 fL (83.0-100.0); Mean Platelet Volume 11.2 fL (9.4-12.4); Monocytes # 0.5 K/mcL (0.0-1.3); Monocytes % 4.2 %; Neutrophils # 8.9 K/mcL (1.6-8.9); Platelet Count 191 K/mcL (140-400); Red Blood Count 3.81 M/mcL (3.82-4.97); Red Cell Distribution Width 14.5 % (11.5-14.5); Segmented Neutrophils % 80.5 %
[2017-09-12 06:25] LABS: BUN/Creatinine Ratio 20 (6-26); Blood Urea Nitrogen 10 mg/dL (8-23); Calcium 8.5 mg/dL (8.6-10.3); Carbon Dioxide 33 mEq/L (23-29); Chloride 98 mEq/L (98-107); Glucose 366 mg/dL (70-105); Magnesium 1.4 mg/dL (1.6-2.6); Osmolality,Calculated 298 (280-300); Potassium 3.6 mEq/L (3.5-5.1); Sodium 137 mEq/L (136-145); eGFR For African Americans > 60 (> 60); eGFR For Non-African Americans > 60 (> 60)
[2017-09-12 07:04] VITALS: BP 107/73
[2017-09-12] MEDS: Budesonide/Formoterol 160/4.5 MDI IH SCH (08:15)
--- NOTE | 2017-09-12 08:51 | Discharge Summary ---
<Cali Johnson - Last Filed: 09/12/17 09:31> Date of Encounter: 09/12/17 Time of Encounter: 09:25 - Discharge Diagnosis (1) Partial small bowel obstruction Priority: Primary Status: Acute (2) Tachycardia Priority: Secondary Status: Acute (3) Insulin dependent diabetes mellitus Priority: Secondary Status: Chronic (4) CAD (coronary artery disease) Priority: Secondary Status: Chronic Qualifiers: Coronary Disease-Associated Artery/Lesion type: [place] artery [place] vs. transplanted heart: [place] heart Associated angina: without angina Qualified Code(s): I25.10 - Atherosclerotic heart disease of [place] coronary artery without angina pectoris (5) DVT prophylaxis Priority: Secondary Status: Acute (6) COPD with exacerbation Priority: Secondary Status: Resolved (7) Physical deconditioning Priority: Secondary Status: Acute - Discharge Medications Prescriptions: OxyCODONE Immed Rel [Roxicodone 5 MG] 5 mg PO Q6HR PRN 3 Days #12 tablet PRN Reason: moderate to severe pain Omeprazole [PriLOSEC] 40 mg PO DAILY@07 #30 capsule.dr Home Medications: Aspirin [Adult Low Dose Aspirin EC] 81 mg PO DAILY 04/18/15 [History] Budesonide/Formoterol 160/4.5 [Symbicort 160/4.5] 2 puff IH BIDR 04/18/15 [ History] Buspirone HCl [Buspar] 15 mg PO HS 04/18/15 [History] Carvedilol [Coreg] 3.125 mg PO BIDWM 04/18/15 [History] Roflumilast [Daliresp] 500 mcg PO DAILY 04/18/15 [History] Simvastatin [Zocor] 20 mg PO DAILY 04/18/15 [History] Calcium Polycarbophil [Fibercon] 625 mg PO QID PRN 08/02/15 [History] Albuterol Sulfate [Ventolin Hfa] 18 gm IH Q4H PRN 03/26/16 [History] Insulin ASPART [Novolog Flexpen] 2 - 14 unit SQ TID 03/26/16 [History] Ipratropium/Albuterol Neb [Duoneb] 3 ml IH Q4-6H PRN 03/26/16 [History] Oxygen 2 - 3 each NS CONT 03/26/16 [History] Potassium Chloride [Klor-Con] 20 meq PO DAILY 03/26/16 [History] Nitroglycerin [Nitrostat] 0.4 mg SL Q5M PRN 06/27/16 [History] Ranolazine [Ranexa] 1,000 mg PO BID 06/27/16 [History] Rizatriptan Benzoate [Maxalt] 10 mg PO ONCE PRN 09/19/16 [History] Simethicone [Gas-X] 80 mg PO QID 09/19/16 [History] Linagliptin [Tradjenta] 5 mg PO DAILY 04/28/17 [History] Promethazine [Phenergan] 12.5 mg PO Q8HR PRN 04/28/17 [History] Fluticasone Propionate Nasal [Flonase] 50 mcg NS DAILY bottle 04/30/17 [Rx] Escitalopram [Lexapro] 20 mg PO DAILY 09/01/17 [History] Insulin Degludec [Tresiba Flextouch U-100] 36 unit SQ QPM 09/01/17 [History] Omeprazole [PriLOSEC] 40 mg PO DAILY@0730 #30 capsule. 09/12/17 [Rx] OxyCODONE Immed Rel [Roxicodone 5 MG] 5 mg PO Q6HR PRN 3 Days #12 tablet [Rx] Allergies/Adverse Reactions: 3 Allergy/AdvReac Type Severity Reaction Status Date / Time atorvastatin [From Lipitor] Allergy Swelling Verified 05/22/17 12:15 of Lip/Tongue/Throat bupropion [From Wellbutrin] Allergy Swelling Verified 05/22/17 12:15 of Lip/Tongue/Throat glimepiride Allergy Swelling Verified 05/22/17 12:15 of Lip/Tongue/Throat isosorbide [From Imdur] Allergy Swelling Verified 05/22/17 12:15 of Lip/Tongue/Throat lurasidone [From Latuda] Allergy Swelling Verified 05/22/17 12:15 of Lip/Tongue/Throat metformin Allergy Swelling Verified 05/22/17 12:15 of Lip/Tongue/Throat metoclopramide [From Reglan] Allergy Swelling Verified 05/22/17 12:15 of Lip/Tongue/Throat Penicillins Allergy Anaphylaxis Verified 05/22/17 12:15 prednisone Allergy Swelling Verified 05/22/17 12:15 of Lip/Tongue/Throat aspirin AdvReac Nausea Verified 05/22/17 12:15 clopidogrel [From Plavix] AdvReac Swelling Verified 05/22/17 12:15 of Lip/Tongue/Throat codeine AdvReac Nausea Verified 05/22/17 12:15 fluticasone AdvReac Swelling Verified 05/22/17 12:15 [From Advair Diskus] of Lip/Tongue/Throat hydrocodone [From [place]] AdvReac Swelling Verified 05/22/17 12:15 of Lip/Tongue/Throat Pertussis Vaccine,Adsorbed AdvReac Swelling Verified 05/22/17 12:15 of Lip/Tongue/Throat risperidone AdvReac Swelling Verified 05/22/17 12:15 of Lip/Tongue/Throat salmeterol AdvReac Swelling Verified 05/22/17 12:15 [From Advair Diskus] of Lip/Tongue/Throat tiotropium AdvReac Swelling Verified 05/22/17 12:15 [From Spiriva with of HandiHaler] Lip/Tongue/Throat venom-honey bee AdvReac Swelling Verified 05/22/17 12:15 [bee venom (honey bee)] of Lip/Tongue/Throat Date of admission: 08/30/17 21:14 Primary care physician: Lisa Brown, Consults: 08/30/17 22:34 Consult to Nutrition [CONS] Routine Comment: Consulting Provider: NUTRITION Reason for Dietary Consult: MST Score Consult to [employer] [CONS] Routine Reason for SW Consult: Home health follow up 09/05/17 08:28 Consult to Occupational Therapy [CONS] Routine Comment: Evaluate, develop and implement POC Reason for Consult: Mobilization and d/c planning Consult to Physical Therapy [CONS] Routine Comment: Evaluate, develop and implement POC Reason for Consult: Mobilization and d/c planning Discharging clinician: Srinath Gannon Anticipated date of discharge: 09/12/17 - Patient Status Disposition: Transfer Inpatient Rehab Fac Condition: Fair Functional capacity at discharge: uses cane/walker (needs assistance) Overall status at discharge: patient is progressing back to baseline - Discharge Instructions Follow Up With: Lisa Brown CNP [Primary Care Provider] - 09/16/17 2:15 pm Chelsey Guzman MD [Partnered Physician] - 09/11/17 2:15 pm Checo Albrecht, [Partnered Physician] - 09/15/17 9:20 am Makenzie Pereira CNP [Advanced Practice Nurse] - 09/23/17 1:00 pm Additional Instructions: Please shower as he regularly do, daily. No tub baths for 2 weeks. Wash incisions with soap and water and pat dry daily. No lifting, pushing, or pulling more than 15 pounds for 6 weeks. No driving until off narcotics and safely able to react in the vehicle. Continue regular diet as tolerated. May ambulate and climb stairs as tolerated. -Please follow up with Surgery as outpatient. -Please follow up with PCP after released from rehab. -Plan to complete inpatient rehab to build strength. - Diet and Activity Activity: as per physical therapy, increase activity as tolerated, wear oxygen at all times Diet: advance to your usual diet Interval History: Ms Gomez is a 62yo M, in no acute distress currently. Afebrile, vitals stable. Notes lower extremity swelling, no pain. Patient concerned about transitioning to rehab. Hospital course: Ms. Gomez is a 62 year old female with Hx of COPD, DM, admitted for Presented to ER for nausea/vomiting/diarrhea for 10 days. Found to have small bowel obstruction, underwent exploratory laparotomy with lysis of adhesions. Also found to have COPD exacerbation, noted to be on supplemental oxygen and steroids. Patient's diet slowly advanced as tolerated. Respiratory status maintained and we were able to work on tapering steroids. Patient inactive during illness and notes loss of strength. Concerns for patient returning home as a fall risk, recommending inpatient rehab for strengthening. At discharge patient having regular bowel and bladder function, tolerating regular diet. Leuckocystosis improved and hypokalemia improved. - Time Spent with Patient Total time spent providing and/or coordinating discharge services: Greater than 30 minutes (40mins) - Constitutional Vitals: Temp Pulse Resp BP Pulse Ox 98.2 F 99 18 107/73 95 09/12/17 07:00 09/12/17 07:00 09/12/17 08:17 09/12/17 07:00 09/12/17 08:17 General appearance: Present: cooperative, A&O X 3, answers questions appropriately - Head Head exam: Present: atraumatic, normocephalic - Eye Eye exam: Present: EOMI - Neck Neck exam general surgery: Present: supple. Absent: lymphadenopathy - Respiratory Respiratory exam: Present: CTAB. Absent: accessory muscle use, rales, rhonchi, wheezes - Cardiovascular Cardiovascular exam: Present: RRR, +S1, +S2. Absent: diastolic murmur, gallop, rubs, systolic murmur - GI/Abdominal GI/Abdominal exam: Present: normal bowel sounds, soft, no peritoneal signs. Absent: distended, tenderness - Extremities Exam Extremities exam: Present: warm. Absent: cyanotic - Neurological Exam Neurological exam: Present: alert, oriented X3, no focal deficits. Absent: facial droop, speech deficit - Skin Skin exam: Present: dry, intact - VTE Documentation of Mechanical Device: Intermittent pneumatic compression device <Srinath Gannon - Last Filed: 09/12/17 13:01> Date of Encounter: 09/12/17 Date of admission: 08/30/17 21:14 Primary care physician: Lisa Brown, Consults: 08/30/17 22:34 Consult to Nutrition [CONS] Routine Comment: Consulting Provider: NUTRITION Reason for Dietary Consult: MST Score Consult to [employer] [CONS] Routine Reason for SW Consult: Home health follow up 09/05/17 08:28 Consult to Occupational Therapy [CONS] Routine Comment: Evaluate, develop and implement POC Reason for Consult: Mobilization and d/c planning Consult to Physical Therapy [CONS] Routine Comment: Evaluate, develop and implement POC Reason for Consult: Mobilization and d/c planning Hospital course: Ms. Gomez is a 62 year old female - Time Spent with Patient Total time spent providing and/or coordinating discharge services: - Constitutional Vitals: Temp Pulse Resp BP Pulse Ox 98.2 F 99 18 107/73 95 09/12/17 07:00 09/12/17 07:00 09/12/17 08:17 09/12/17 07:00 09/12/17 08:17 - Attending Attestation Small bowel obstruction status post exploratory laparotomy and lysis of adhesions Additional past medical history: Hyperlipidemia, CAD, GERD, diabetes insulin- dependent, morbid obesity, COPD, cardiomyopathy, osteoporosis Bipolar disorder I examined this patient and my medical decision-making was reviewed with the Resident Physician. I agree with the documented findings, disposition and treatment plan as described except to the extent set forth below.
[2017-09-12] MEDS ORDERED: Magnesium Oxide 400 MG TABLET PO ONE (09:08)
[2017-09-12] MEDS: Aspirin Enteric Coated 81 MG Tablet PO SCH (09:09)
[2017-09-12] MEDS: methylPREDNISolone 4 MG TABLET PO SCH (09:10)
[2017-09-12] MEDS: Ranolazine 500 MG TAB.ER.12H PO SCH (09:11)
[2017-09-12] MEDS: Insulin LISPRO 300 UNITS/3 ML VIAL SQ SCH ×2 (09:15→11:38)
[2017-09-12] MEDS: (Roflumilast [Daliresp] 500 MCG) PO SCH (09:17)
[2017-09-12] MEDS: Nystatin POWDER 30 GM BOTTLE TP SCH (09:17)
--- NOTE | 2017-09-12 09:21 | Physician Discharge Referral ---
<Cali Johnson - Last Filed: 09/12/17 11:26> [facility] Referral Info Transfer To: ECF Provider in Charge after Transfer: PCP Institutional Level of Care: Skilled - Diagnosis (1) Partial small bowel obstruction Priority: Primary Status: Acute (2) Tachycardia Priority: Secondary Status: Acute (3) Insulin dependent diabetes mellitus Priority: Secondary Status: Chronic (4) CAD (coronary artery disease) Priority: Secondary Status: Chronic (5) DVT prophylaxis Priority: Secondary Status: Acute (6) COPD with exacerbation Priority: Secondary Status: Resolved (7) Physical deconditioning Priority: Secondary Status: Acute Expected Duration of Placement: 2-4 weeks Prognosis: Fair Aware of Diagnosis: Patient - Transfer Medications Prescriptions: OxyCODONE Immed Rel [Roxicodone 5 MG] 5 mg PO Q6HR PRN 3 Days #12 tablet PRN Reason: moderate to severe pain Omeprazole [PriLOSEC] 40 mg PO DAILY@0730 #30 capsule.dr Home Medications: Aspirin [Adult Low Dose Aspirin EC] 81 mg PO DAILY 04/18/15 [History] Budesonide/Formoterol 160/4.5 [Symbicort 160/4.5] 2 puff IH BIDR 04/18/15 [ History] Buspirone HCl [Buspar] 15 mg PO HS 04/18/15 [History] Carvedilol [Coreg] 3.125 mg PO BIDWM 04/18/15 [History] Roflumilast [Daliresp] 500 mcg PO DAILY 04/18/15 [History] Simvastatin [Zocor] 20 mg PO DAILY 04/18/15 [History] Calcium Polycarbophil [Fibercon] 625 mg PO QID PRN 08/02/15 [History] Albuterol Sulfate [Ventolin Hfa] 18 gm IH Q4H PRN 03/26/16 [History] Insulin ASPART [Novolog Flexpen] 2 - 14 unit SQ TID 03/26/16 [History] Ipratropium/Albuterol Neb [Duoneb] 3 ml IH Q4-6H PRN 03/26/16 [History] Oxygen 2 - 3 each NS CONT 03/26/16 [History] Potassium Chloride [Klor-Con] 20 meq PO DAILY 03/26/16 [History] Nitroglycerin [Nitrostat] 0.4 mg SL Q5M PRN 12/01/16 [History] Ranolazine [Ranexa] 1,000 mg PO BID 06/27/16 [History] Rizatriptan Benzoate [Maxalt] 10 mg PO ONCE PRN 09/19/16 [History] Simethicone [Gas-X] 80 mg PO QID 09/19/16 [History] Linagliptin [Tradjenta] 5 mg PO DAILY 04/28/17 [History] Promethazine [Phenergan] 12.5 mg PO Q8HR PRN 04/28/17 [History] Fluticasone Propionate Nasal [Flonase] 50 mcg NS DAILY bottle 04/30/17 [Rx] Escitalopram [Lexapro] 20 mg PO DAILY 09/01/17 [History] Insulin Degludec [Tresiba Flextouch U-100] 36 unit SQ QPM 09/01/17 [History] Omeprazole [PriLOSEC] 40 mg PO DAILY@0730 #30 capsule. 09/12/17 [Rx] OxyCODONE Immed Rel [Roxicodone 5 MG] 5 mg PO Q6HR PRN 3 Days #12 tablet [Rx] Allergies/Adverse Reactions: 3 Allergy/AdvReac Type Severity Reaction Status Date / Time atorvastatin [From Lipitor] Allergy Swelling Verified 05/22/17 12:15 of Lip/Tongue/Throat bupropion [From Wellbutrin] Allergy Swelling Verified 05/22/17 12:15 of Lip/Tongue/Throat glimepiride Allergy Swelling Verified 05/22/17 12:15 of Lip/Tongue/Throat isosorbide [From Imdur] Allergy Swelling Verified 05/22/17 12:15 of Lip/Tongue/Throat lurasidone [From Latuda] Allergy Swelling Verified 05/22/17 12:15 of Lip/Tongue/Throat metformin Allergy Swelling Verified 05/22/17 12:15 of Lip/Tongue/Throat metoclopramide [From Reglan] Allergy Swelling Verified 05/22/17 12:15 of Lip/Tongue/Throat Penicillins Allergy Anaphylaxis Verified 05/22/17 12:15 prednisone Allergy Swelling Verified 05/22/17 12:15 of Lip/Tongue/Throat aspirin AdvReac Nausea Verified 05/22/17 12:15 clopidogrel [From Plavix] AdvReac Swelling Verified 05/22/17 12:15 of Lip/Tongue/Throat codeine AdvReac Nausea Verified 05/22/17 12:15 fluticasone AdvReac Swelling Verified 05/22/17 12:15 [From Advair Diskus] of Lip/Tongue/Throat hydrocodone [From [place]] AdvReac Swelling Verified 05/22/17 12:15 of Lip/Tongue/Throat Pertussis Vaccine,Adsorbed AdvReac Swelling Verified 05/22/17 12:15 of Lip/Tongue/Throat risperidone AdvReac Swelling Verified 05/22/17 12:15 of Lip/Tongue/Throat salmeterol AdvReac Swelling Verified 05/22/17 12:15 [From Advair Diskus] of Lip/Tongue/Throat tiotropium AdvReac Swelling Verified 05/22/17 12:15 [From Spiriva with of HandiHaler] Lip/Tongue/Throat venom-honey bee AdvReac Swelling Verified 05/22/17 12:15 [bee venom (honey bee)] of Lip/Tongue/Throat - Respiratory Orders Oxygen / L per min (4L) Smoking Cessation: Smoking cessation has been advised. For more information, call the [place] DEPT. Line at [phone]-HDQD-NOW. - Ancillary Orders May use pressure relief devices daily prn - Advance Directives Code Status: DNR-Arrest - Mobility Orders Chair, Ambulate (with assistance) - Rehabiliation Orders Rehab Potential: Fair Rehab Orders: ROM Exercises, Evaluation for Physical Therapy - Treatments Skin tear care topically daily PRN per policy, May check for fecal impaction rectally daily PRN - Diet Orders Regular CERTIFICATION: I certify that the transfer of the above named patient to an Extended Care Facility is necessary for the continuing treatment of the diagnosis listed. The above information is true and accurate reflection of patient's current condition. Confidential - Redisclosure prohibited without a patient's written consent. <Srinath Gannon H - Last Filed: 09/12/17 13:02> - Respiratory Orders Smoking Cessation: Smoking cessation has been advised. For more information, call the [facility] Quit Line at [phone]-NEPT-NOW. CERTIFICATION: I certify that the transfer of the above named patient to an Extended Care Facility is necessary for the continuing treatment of the diagnosis listed. The above information is true and accurate reflection of patient's current condition. Confidential - Redisclosure prohibited without a patient's written consent.
== END 2017-09-12 16:42 | DRG 336 ==
LOC: EMEROO 16:05 → 3ANU 16:05 → 2NENU 21:02 → SUATTDRO 21:14 → 2NENU 21:30
PROVIDERS: ADMIT Pediatrics; ATTEND Internal Medicine